=== PATIENT | male | born 1950 | race Two or more races ===

== ENCOUNTER 2022-01-26 13:17 | Inpatient (IN) | payer OTHER ==
[~2022-01-26] VITALS: Ht 175.3 cm; Wt 88.1 kg
[2022-01-26] MEDS ORDERED: SODIUM CHLORIDE 0.9% 1,000 ML IVB ONE (13:30)
[2022-01-26 13:43] LABS: Basophils # (auto) 0.1 10 ^3/uL (0-0.2); Basophils % (auto) 0.5 % (0.0-2.0); Eosinophils # (auto) 0 10 ^3/uL (0-0.8); Hematocrit 34.6 % (41.0-53.0); Hemoglobin 11.1 g/dL (13.5-17.5); Lymphocytes # (auto) 0.9 10 ^3/uL (0.4-5.4); Lymphocytes % (auto) 4.2 % (10.0-50.0); Mean Corpuscular Hemoglobin 27.7 pg (28.0-32.0); Mean Corpuscular Hgb Conc. 32.1 g/dL (32.0-36.0); Mean Corpuscular Volume 86.3 fL (80.0-100.0); Monocytes # (auto) 1.2 10 ^3/uL (0-1.3); Neutrophils # (auto) 18.2 10 ^3/uL (1.6-8.6); Neutrophils % (auto) 89.3 % (37.0-80.0); Nucleated Red Blood Cells % 0.1 %; Red Blood Cells 4.01 10^6/uL (4.5-5.90); Red Cell Distribution Width 13.9 % (11.8-14.3); White Blood Cell 20.4 10^3/uL (4.4-10.8)
[2022-01-26 14:07] LABS: Anion Gap 12 (5-15); Blood Alcohol < 3.0 mg/dL (0-5); Blood Urea Nitrogen 49 mg/dL (7-18); Calcium 7.2 mg/dL (8.5-10.1); Carbon Dioxide 24 mmol/L (21-32); Chloride 90 mmol/L (98-107); Glucose 325 mg/dL (74-106); Magnesium 2.4 mg/dL (1.6-2.6); Potassium 3.5 mmol/L (3.5-5.1); Sodium 126 mmol/L (136-145)
[2022-01-26 14:10] LABS: Alanine Aminotransferase 35 U/L (16-61); Alkaline Phosphatase 118 U/L (45-117); Aspartate Aminotransferase 35 U/L (15-37); BUN/Creatinine Ratio 37.4; GFR African American 69 mL/min; GFR Non-African American 57 mL/min; Lactic Acid w/Reflex 3.3 mmol/L (0.4-2.0)
[2022-01-26] MEDS ORDERED: levoFLOXacin 500MG 100 ML IV ONE (15:15)
[2022-01-26] MEDS ORDERED: SODIUM CHLORIDE 0.9% 1,000 ML IV ONE (15:15)
[2022-01-26] MEDS ORDERED: cefTRIAXone 1GM/50ML D5W 50 ML IV ONE (15:15)
[2022-01-26] MEDS ORDERED: NITROGLYCERIN 0.4 MG SL TAB SL PRN (16:45)
[2022-01-26] MEDS ORDERED: MORPHINE SULFATE INJ 2 MG/ml SYRG IV PRN ×2 (16:45)
[2022-01-26] MEDS ORDERED: DEXTROSE (50%) 50ML SYRG IV PRN (16:45)
[2022-01-26] MEDS ORDERED: HEPARIN SODIUM (PORCINE) 5000 UNITS/ML 1ML VIAL IV ONE (16:45)
[2022-01-26] MEDS ORDERED: ALBUTEROL SULF 2.5 MG/0.5ML(0.5%) NEB SOLN NEB PRN (17:00)
[2022-01-26] MEDS ORDERED: PANTOPRAZOLE 40 MG/10 ML VIAL INJ IV ONE (17:00)
[2022-01-26] MEDS ORDERED: IPRATROPIUM BROM 0.5 MG/2.5ML INH SOL NEB PRN (17:00)
[2022-01-26 17:10] LABS: Cholesterol 80 mg/dL (< 200)
[2022-01-26 17:13] LABS: HDL Cholesterol 10 mg/dL (40-59); LDL Cholesterol 35 mg/dL (< 100); Triglycerides 248 mg/dL (< 150)
[2022-01-26] MEDS: ACCU-CHEK COMFORT CURVE STRIP VI SCH ×2 (17:36→22:19)
[2022-01-26] MEDS: SODIUM CHLORIDE 0.9% 1,000 ML IV SCH (17:57)
[2022-01-26] MEDS: InsuLIN REG 1unit/0.01ml Soln (100units/ml) SC SCH ×2 (17:58→22:29)
[2022-01-26] MEDS: ALBUTEROL SULF 2.5 MG/0.5ML(0.5%) NEB SOLN NEB SCH ×2 (18:37→18:51)
[2022-01-26] MEDS: IPRATROPIUM BROM 0.5 MG/2.5ML INH SOL NEB SCH ×2 (18:38→18:51)
[2022-01-26 20:58] LABS: Urine Bacteria NONE SEEN /hpf (None Seen); Urine Blood Negative /uL (Negative); Urine Hyaline Cast FEW /lpf (0 - 2); Urine Mucus FEW (None Seen); Urine Specific Gravity 1.022 (1.001-1.035); Urine WBC 4 /hpf (0 - 3)
[2022-01-26 21:29] LABS: Alcohol, Urine < 3.0 mg/dL (0-10); Barbiturate Scree,Urine NEGATIVE (NEGATIVE); Benzodiazephine Screen, Urine NEGATIVE (NEGATIVE); Cannabinoid Screen, Urine NEGATIVE (NEGATIVE); Cocaine Screen, Urine NEGATIVE (NEGATIVE); Opiate Scree,Urine NEGATIVE (NEGATIVE); Phencyclidine Screen, Urine NEGATIVE (NEGATIVE)
[2022-01-26 21:45] LABS: Amphetamine Screen, Urine NEGATIVE (NEGATIVE)
[2022-01-26] MEDS: HEPARIN SODIUM (PORCINE) 5000 UNITS/ML 1ML VIAL SC SCH (22:19)
[2022-01-26 22:39] VITALS: BP 122/65
[2022-01-26 22:43] VITALS: BP 122/65
[2022-01-26 22:49] VITALS: BP 122/65
[2022-01-26] MEDS: ACETAMINOPHEN 325 MG TAB PO PRN (23:38)
[2022-01-27] MEDS: SODIUM CHLORIDE 0.9% 1,000 ML IV SCH ×3 (03:46→23:17)
[2022-01-27 04:51] VITALS: BP 121/70
[2022-01-27 04:56] LABS: Basophils # (auto) 0 10 ^3/uL (0-0.2); Basophils % (auto) 0.1 % (0.0-2.0); Eosinophils # (auto) 0 10 ^3/uL (0-0.8); Eosinophils % (auto) 0.1 % (0.0-7.0); Hematocrit 28.8 % (41.0-53.0); Hemoglobin 9.5 g/dL (13.5-17.5); Lymphocytes # (auto) 1.1 10 ^3/uL (0.4-5.4); Lymphocytes % (auto) 6.9 % (10.0-50.0); Mean Corpuscular Hemoglobin 28.3 pg (28.0-32.0); Mean Corpuscular Hgb Conc. 32.9 g/dL (32.0-36.0); Mean Corpuscular Volume 85.8 fL (80.0-100.0); Monocytes # (auto) 1.4 10 ^3/uL (0-1.3); Monocytes % (auto) 8.8 % (0.0-12.0); Neutrophils # (auto) 13.5 10 ^3/uL (1.6-8.6); Neutrophils % (auto) 84.1 % (37.0-80.0); Red Blood Cells 3.36 10^6/uL (4.5-5.90)
[2022-01-27 05:03] LABS: Albumin 1.6 g/dL (3.4-5.0); BUN/Creatinine Ratio 46.6; Calcium 6.7 mg/dL (8.5-10.1); Potassium 3.1 mmol/L (3.5-5.1)
[2022-01-27 05:05] LABS: Bilirubin, Total 0.6 mg/dL (0.2-1.0); Total Protein 5.3 g/dL (6.4-8.2)
[2022-01-27] MEDS: InsuLIN REG 1unit/0.01ml Soln (100units/ml) SC SCH ×4 (05:53→22:00)
[2022-01-27] MEDS: ACCU-CHEK COMFORT CURVE STRIP VI SCH ×4 (05:53→22:33)
[2022-01-27 06:03] VITALS: BP 121/70
[2022-01-27] MEDS ORDERED: POTASSIUM CHL 20 Meq TABLET PO ONE (06:45)
[2022-01-27 09:00] VITALS: BP 125/62
[2022-01-27] MEDS ORDERED: cefTRIAXone 1GM/50ML D5W 50 ML IV SCH (09:00)
[2022-01-27] MEDS ORDERED: AZITHROMYCIN 500MG/ 250ML 250 ML IV SCH (10:00)
[2022-01-27] MEDS ORDERED: PANTOPRAZOLE 40 MG/10 ML VIAL INJ IV SCH (10:00)
[2022-01-27] MEDS ORDERED: PIPERACILLIN-TAZOB 3.375GM 100 ML IV ONE (10:15)
[2022-01-27] MEDS ORDERED: PANTOPRAZOLE 40 MG/10 ML VIAL INJ IV ONE (10:15)
[2022-01-27] MEDS ORDERED: POTASSIUM CHLORIDE 40 MEQ, LIDOCAINE 1% (LOCAL ANESTH.) 4 ML in SODIUM CHL 0.9% 250 ML IV ONE (10:15)
[2022-01-27] MEDS ORDERED: MORPHINE SULFATE INJ 2 MG/ml SYRG IV PRN (10:15)
[2022-01-27] MEDS: HEPARIN SODIUM (PORCINE) 5000 UNITS/ML 1ML VIAL SC SCH ×2 (11:33→21:37)
[2022-01-27 13:00] VITALS: BP 148/76
[2022-01-27] MEDS ORDERED: OMNIPAQUE ORAL SOLN 500ml 12mg/ml PO ONE (14:02)
[2022-01-27] MEDS: PIPERACILLIN-TAZOB 3.375GM 100 ML IV SCH ×2 (15:36→21:38)
[2022-01-27 17:00] VITALS: BP 152/77
[2022-01-27] MEDS: ALBUTEROL SULF 2.5 MG/0.5ML(0.5%) NEB SOLN NEB SCH (18:26)
[2022-01-27] MEDS: IPRATROPIUM BROM 0.5 MG/2.5ML INH SOL NEB SCH (18:26)
[2022-01-27 22:00] VITALS: BP 136/73
[2022-01-28 05:00] VITALS: BP 145/73
[2022-01-28 05:01] LABS: Basophils # (auto) 0 10 ^3/uL (0-0.2); Eosinophils # (auto) 0 10 ^3/uL (0-0.8); Hematocrit 28.2 % (41.0-53.0); Hemoglobin 9.6 g/dL (13.5-17.5); Lymphocytes # (auto) 0.9 10 ^3/uL (0.4-5.4); Lymphocytes % (auto) 6.2 % (10.0-50.0); Mean Corpuscular Hemoglobin 29.2 pg (28.0-32.0); Mean Corpuscular Hgb Conc. 33.9 g/dL (32.0-36.0); Mean Corpuscular Volume 86.1 fL (80.0-100.0); Monocytes # (auto) 0.9 10 ^3/uL (0-1.3); Monocytes % (auto) 6.3 % (0.0-12.0); Neutrophils % (auto) 87.5 % (37.0-80.0); Red Blood Cells 3.27 10^6/uL (4.5-5.90); Red Cell Distribution Width 14.3 % (11.8-14.3); White Blood Cell 13.7 10^3/uL (4.4-10.8)
[2022-01-28 05:14] LABS: Albumin 1.6 g/dL (3.4-5.0); Calcium 6.7 mg/dL (8.5-10.1); Potassium 3.7 mmol/L (3.5-5.1)
[2022-01-28 05:18] LABS: BUN/Creatinine Ratio 35.9; Bilirubin, Total 0.8 mg/dL (0.2-1.0); Total Protein 5.2 g/dL (6.4-8.2)
[2022-01-28] MEDS: PIPERACILLIN-TAZOB 3.375GM 100 ML IV SCH ×3 (05:54→21:43)
[2022-01-28] MEDS: ACCU-CHEK COMFORT CURVE STRIP VI SCH ×4 (06:18→21:55)
[2022-01-28] MEDS: InsuLIN REG 1unit/0.01ml Soln (100units/ml) SC SCH ×4 (06:18→21:46)
[2022-01-28] MEDS: IPRATROPIUM BROM 0.5 MG/2.5ML INH SOL NEB SCH ×3 (06:26→18:13)
[2022-01-28] MEDS: ALBUTEROL SULF 2.5 MG/0.5ML(0.5%) NEB SOLN NEB SCH ×3 (06:26→18:13)
[2022-01-28 09:00] VITALS: BP 135/68
[2022-01-28] MEDS: PANTOPRAZOLE 40 MG/10 ML VIAL INJ IV SCH (10:23)
[2022-01-28] MEDS: HEPARIN SODIUM (PORCINE) 5000 UNITS/ML 1ML VIAL SC SCH ×2 (10:27→21:54)
[2022-01-28] MEDS: SODIUM CHLORIDE 0.9% 1,000 ML IV SCH ×2 (10:28→23:20)
[2022-01-28 13:00] VITALS: BP 137/71
[2022-01-28 17:00] VITALS: BP 145/79
[2022-01-28 22:00] VITALS: BP 132/29
[2022-01-29 05:00] VITALS: BP 159/74
[2022-01-29] MEDS: ALBUTEROL SULF 2.5 MG/0.5ML(0.5%) NEB SOLN NEB SCH ×3 (06:03→18:15)
[2022-01-29] MEDS: PIPERACILLIN-TAZOB 3.375GM 100 ML IV SCH (06:03)
[2022-01-29] MEDS: IPRATROPIUM BROM 0.5 MG/2.5ML INH SOL NEB SCH ×3 (06:03→18:15)
[2022-01-29] MEDS: InsuLIN REG 1unit/0.01ml Soln (100units/ml) SC SCH ×4 (06:27→21:47)
[2022-01-29] MEDS: ACCU-CHEK COMFORT CURVE STRIP VI SCH ×4 (06:27→21:44)
[2022-01-29 07:22] LABS: Basophils # (auto) 0 10 ^3/uL (0-0.2); Basophils % (auto) 0.1 % (0.0-2.0); Eosinophils # (auto) 0 10 ^3/uL (0-0.8); Eosinophils % (auto) 0.3 % (0.0-7.0); Hematocrit 29.1 % (41.0-53.0); Hemoglobin 9.5 g/dL (13.5-17.5); Lymphocytes % (auto) 9.3 % (10.0-50.0); Mean Corpuscular Hemoglobin 28.3 pg (28.0-32.0); Mean Corpuscular Hgb Conc. 32.6 g/dL (32.0-36.0); Mean Corpuscular Volume 86.8 fL (80.0-100.0); Monocytes # (auto) 0.7 10 ^3/uL (0-1.3); Monocytes % (auto) 5.9 % (0.0-12.0); Neutrophils # (auto) 9.4 10 ^3/uL (1.6-8.6); Neutrophils % (auto) 84.4 % (37.0-80.0); Nucleated Red Blood Cells % 0.1 %; Red Blood Cells 3.35 10^6/uL (4.5-5.90); Red Cell Distribution Width 14.3 % (11.8-14.3); White Blood Cell 11.1 10^3/uL (4.4-10.8)
[2022-01-29 07:37] LABS: Calcium 7.2 mg/dL (8.5-10.1); Potassium 3.8 mmol/L (3.5-5.1)
[2022-01-29 09:05] VITALS: BP 151/75
[2022-01-29] MEDS: HEPARIN SODIUM (PORCINE) 5000 UNITS/ML 1ML VIAL SC SCH ×2 (09:52→21:44)
[2022-01-29] MEDS: PANTOPRAZOLE 40 MG/10 ML VIAL INJ IV SCH (09:53)
[2022-01-29] MEDS ORDERED: CARVEDILOL 3.125 MG TAB PO ONE (10:15)
[2022-01-29] MEDS ORDERED: LISINOPRIL 10 MG TAB PO ONE (10:15)
[2022-01-29 13:00] VITALS: BP 152/74
[2022-01-29 16:53] VITALS: BP 151/73
[2022-01-29] MEDS ORDERED: LISINOPRIL 20 MG TAB PO ONE (17:00)
[2022-01-29] MEDS ORDERED: EPINEPHrine HCL 1 MG/10 ML SYRG ONE (17:50)
[2022-01-29] MEDS: CARVEDILOL 3.125 MG TAB PO SCH (21:42)
[2022-01-29 22:00] VITALS: BP 136/67
[2022-01-30 05:00] VITALS: BP 164/83
[2022-01-30] MEDS: ACCU-CHEK COMFORT CURVE STRIP VI SCH ×4 (06:02→22:00)
[2022-01-30] MEDS: InsuLIN REG 1unit/0.01ml Soln (100units/ml) SC SCH ×4 (06:02→21:57)
[2022-01-30] MEDS: IPRATROPIUM BROM 0.5 MG/2.5ML INH SOL NEB SCH ×2 (07:19→17:42)
[2022-01-30] MEDS: ALBUTEROL SULF 2.5 MG/0.5ML(0.5%) NEB SOLN NEB SCH ×2 (07:19→17:42)
[2022-01-30 09:00] VITALS: BP 155/76
[2022-01-30] MEDS ORDERED: cefTRIAXone 1GM/50ML D5W 50 ML IV SCH (09:00)
[2022-01-30] MEDS ORDERED: LISINOPRIL 10 MG TAB PO SCH (10:00)
[2022-01-30] MEDS ORDERED: DOCUSATE SOD 100 MG CAP PO ONE (10:15)
[2022-01-30 10:33] VITALS: BP 155/76
[2022-01-30] MEDS: PANTOPRAZOLE 40 MG TAB PO SCH (10:35)
[2022-01-30] MEDS: LISINOPRIL 10 MG TAB PO SCH (10:37)
[2022-01-30] MEDS: CARVEDILOL 3.125 MG TAB PO SCH ×2 (10:37→21:56)
[2022-01-30 13:00] VITALS: BP 144/85
[2022-01-30 17:06] VITALS: BP 150/84
[2022-01-30 21:38] VITALS: BP 153/81
[2022-01-31 04:38] VITALS: BP 156/77
[2022-01-31] MEDS: IPRATROPIUM BROM 0.5 MG/2.5ML INH SOL NEB SCH ×2 (06:15→12:00)
[2022-01-31] MEDS: ALBUTEROL SULF 2.5 MG/0.5ML(0.5%) NEB SOLN NEB SCH ×2 (06:15→12:00)
[2022-01-31] MEDS: ACCU-CHEK COMFORT CURVE STRIP VI SCH ×2 (06:35→11:30)
[2022-01-31] MEDS: InsuLIN REG 1unit/0.01ml Soln (100units/ml) SC SCH ×2 (06:36→12:53)
[2022-01-31 09:00] VITALS: BP 152/82
[2022-01-31] MEDS ORDERED: levoFLOXacin 250 MG TAB PO SCH (10:00)
[2022-01-31] MEDS ORDERED: LISI-716 PO (10:29)
[2022-01-31] MEDS ORDERED: LEVO250T69 PO (10:29)
[2022-01-31] MEDS ORDERED: CAR3125T PO (10:29)
[2022-01-31] MEDS ORDERED: FURO1TAB33 PO (10:29)
[2022-01-31] MEDS ORDERED: FUROSEMIDE 20 MG TAB PO ONE (10:30)
[2022-01-31] MEDS: LISINOPRIL 10 MG TAB PO SCH (10:38)
[2022-01-31] MEDS: CARVEDILOL 3.125 MG TAB PO SCH (10:39)
[2022-01-31] MEDS: PANTOPRAZOLE 40 MG TAB PO SCH (10:39)
[2022-01-31 13:00] VITALS: BP 150/82
[2022-01-31 13:08] VITALS: BP 142/78
[2022-01-31] MEDS: ACETAMINOPHEN 325 MG TAB PO PRN (13:56)
== END 2022-01-31 15:45 | disposition home or self-care (01) | DRG 871 ==
LOC: EDBD 13:17 → ER 13:24 → TELE 16:51 → TELE-CENTR 21:44 → CENTRAL 01-29 05:35
PROVIDERS: ADMIT Registered Nurse; ATTEND Internal Medicine
DX: A40.8 Other streptococcal sepsis (principal); I50.21 Acute systolic (congestive) heart failure; N17.0 Acute kidney failure with tubular necrosis; J96.01 Acute respiratory failure with hypoxia; J15.4 Pneumonia due to other streptococci; N39.0 Urinary tract infection, site not specified; E87.1 Hypo-osmolality and hyponatremia; E78.5 Hyperlipidemia, unspecified; D63.8 Anemia in other chronic diseases classified elsewhere; R77.8 Other specified abnormalities of plasma proteins; K21.9 Gastro-esophageal reflux disease without esophagitis; E11.42 Type 2 diabetes mellitus with diabetic polyneuropathy; E86.0 Dehydration; K22.0 Achalasia of cardia; I11.0 Hypertensive heart disease with heart failure; Z20.822 Contact with and (suspected) exposure to COVID-19; K57.30 Diverticulosis of large intestine without perforation or abscess without bleeding; Z79.899 Other long term (current) drug therapy
CPT/HCPCS: 36415; 36600; 70450; 71045; 74176; 80048; 80053; 80061; 80307; 80320; 81001; 82805; 82962; 83036; 83605; 83690; 83735; 83880; 84484; 85025; 85379; 87040; 87077; 87086; 87186; 93306; 94640; 96361; 96365; 96368; 97110; 97116; 97163; 97530; 99291; C9113; G0378; J0696; J1815; J1956; J2001; J2543

== ENCOUNTER → 2022-04-25 | Outpatient (CLI) | payer OTHER ==
[~2022-04-25] VITALS: Ht 185.4 cm; Wt 94.3 kg
[~2022-04-25] MED LIST: ADENOSINE 79 MG in GIVE UN-DILUTED 0 ML IV ONE; CAR3125T PO; FURO1TAB33 PO; LEVO250T69 PO; LISI-716 PO
== END | disposition home or self-care (01) ==
LOC: XYW 07:53
PROVIDERS: ATTEND Internal Medicine
DX: I25.10 Atherosclerotic heart disease of native coronary artery without angina pectoris (principal); I49.3 Ventricular premature depolarization; I42.9 Cardiomyopathy, unspecified; I51.7 Cardiomegaly; R53.1 Weakness; E11.42 Type 2 diabetes mellitus with diabetic polyneuropathy; M19.90 Unspecified osteoarthritis, unspecified site; M25.512 Pain in left shoulder
CPT/HCPCS: 78452; 93017; A9500; J0153

== ENCOUNTER → 2022-06-09 | Outpatient (CLI) | payer OTHER ==
[~2022-06-09] MED LIST changes: -ADENOSINE 79 MG in GIVE UN-DILUTED 0 ML IV ONE
[2022-06-09 08:57] LABS: Basophils # (auto) 0 10 ^3/uL (0-0.2); Basophils % (auto) 0.6 % (0.0-2.0); Hemoglobin 12.6 g/dL (13.5-17.5); Lymphocytes # (auto) 2.3 10 ^3/uL (0.4-5.4); Monocytes # (auto) 0.5 10 ^3/uL (0-1.3); Neutrophils # (auto) 3.6 10 ^3/uL (1.6-8.6); Nucleated Red Blood Cells % 0.1 %; White Blood Cell 6.5 10^3/uL (4.4-10.8)
[2022-06-09 08:59] LABS: Eosinophils # (auto) 0 10 ^3/uL (0-0.8); Eosinophils % (auto) 0.6 % (0.0-7.0); Hematocrit 40.6 % (41.0-53.0); Mean Corpuscular Hemoglobin 24.9 pg (28.0-32.0); Mean Corpuscular Volume 80.2 fL (80.0-100.0); Monocytes % (auto) 7.3 % (0.0-12.0); Neutrophils % (auto) 56.5 % (37.0-80.0); Red Blood Cells 5.07 10^6/uL (4.5-5.90); Red Cell Distribution Width 16.3 % (11.8-14.3)
[2022-06-09 09:16] LABS: Urine Bacteria NONE SEEN /hpf (None Seen); Urine Blood Negative /uL (Negative); Urine Specific Gravity 1.018 (1.001-1.035); Urine WBC 1 /hpf (0 - 3)
[2022-06-09 09:32] LABS: Albumin 3.7 g/dL (3.4-5.0); Potassium 4.3 mmol/L (3.5-5.1)
[2022-06-09 09:47] LABS: BUN/Creatinine Ratio 18.6; Bilirubin, Total 0.3 mg/dL (0.2-1.0); Calcium 9.1 mg/dL (8.5-10.1); Total Protein 8.3 g/dL (6.4-8.2)
== END | disposition home or self-care (01) ==
LOC: LAB 08:34
PROVIDERS: ATTEND Student in an Organized Health Care Education/Training Program
DX: E11.9 Type 2 diabetes mellitus without complications (principal)
CPT/HCPCS: 36415; 80053; 80061; 81001; 83036; 85025

== ENCOUNTER 2022-07-09 10:35 | Day surgery (SDC) | payer OTHER ==
[2022-07-07 14:34] LABS: Eosinophils # (auto) 0 10 ^3/uL (0-0.8); Eosinophils % (auto) 0.4 % (0.0-7.0); Lymphocytes # (auto) 2.4 10 ^3/uL (0.4-5.4); Monocytes # (auto) 0.5 10 ^3/uL (0-1.3); Nucleated Red Blood Cells % 0.1 %
[2022-07-07 14:36] LABS: Basophils # (auto) 0.1 10 ^3/uL (0-0.2); Basophils % (auto) 0.7 % (0.0-2.0); Hematocrit 39.3 % (41.0-53.0); Lymphocytes % (auto) 29.9 % (10.0-50.0); Mean Corpuscular Hemoglobin 26.3 pg (28.0-32.0); Mean Corpuscular Hgb Conc. 33.1 g/dL (32.0-36.0); Mean Corpuscular Volume 79.4 fL (80.0-100.0); Monocytes % (auto) 6.5 % (0.0-12.0); Neutrophils # (auto) 5.1 10 ^3/uL (1.6-8.6); Neutrophils % (auto) 62.5 % (37.0-80.0); Red Blood Cells 4.95 10^6/uL (4.5-5.90); Red Cell Distribution Width 16.3 % (11.8-14.3); White Blood Cell 8.1 10^3/uL (4.4-10.8)
[2022-07-07 14:49] LABS: INR 0.92 (0.9-1.15); Partial Thromboplastin Time 28.5 sec (24.6-33.4)
[2022-07-07 15:51] LABS: Albumin 3.8 g/dL (3.4-5.0); Calcium 9.1 mg/dL (8.5-10.1); Potassium 4.6 mmol/L (3.5-5.1)
[2022-07-07 15:54] LABS: Bilirubin, Total 0.3 mg/dL (0.2-1.0); Total Protein 8.5 g/dL (6.4-8.2)
[~2022-07-09] VITALS: Ht 185.4 cm; Wt 94.5 kg
[2022-07-09] MEDS ORDERED: IODIXANOL 320MG/ML 100ML BTL IV ONE (15:35)
[2022-07-09] MEDS ORDERED: LIDOCAINE 2%HCL (LOCAL ANESTH.) INJ 20ML MDV ONE (15:35)
[2022-07-09] MEDS ORDERED: HEPARIN SODIUM (PORCINE) 5000 UNITS/ML 1ML VIAL ONE (15:36)
[2022-07-09] MEDS ORDERED: ANGIOMAX 250 MG VIAL IV ONE (15:36)
[2022-07-09] MEDS ORDERED: VERAPAMIL 2.5MG/ML INJ 2ML VIAL IV ONE (15:36)
[2022-07-09] MEDS ORDERED: fentaNYL CITRATE 100 MCG/2 ML VL ONE (15:37)
[2022-07-09] MEDS ORDERED: MIDAZOLAM HCL 2MG/2ML 2ml VIAL (1mg/ml) ONE (15:37)
[2022-07-09] MEDS ORDERED: SODIUM CHL 0.9% 0 ML ONE (15:37)
[2022-07-09 16:13] VITALS: BP 149/85
[2022-07-09 16:25] VITALS: BP 148/82
[2022-07-09 16:40] VITALS: BP 149/87
[2022-07-09] MEDS ORDERED: SODIUM CHL 0.9% 500 ML IV ONE (16:45)
[2022-07-09] MEDS ORDERED: GABA300C10 PO (16:52)
[2022-07-09] MEDS ORDERED: TAMS0.4C36 PO (16:52)
[2022-07-09] MEDS ORDERED: METF-370 PO (16:52)
[2022-07-09] MEDS ORDERED: CELE100C82 PO (16:52)
[2022-07-09] MEDS ORDERED: GLIP10TA9 PO (16:52)
[2022-07-09] MEDS ORDERED: SACU1TAB PO (16:52)
[2022-07-09] MEDS ORDERED: ATOR40TA52 PO (16:52)
[2022-07-09 16:55] VITALS: BP 161/90
[2022-07-09 17:10] VITALS: BP 170/89
[2022-07-09 17:40] VITALS: BP 165/88
== END 2022-07-09 18:00 | disposition home or self-care (01) ==
LOC: CATH 10:35
PROVIDERS: ATTEND Internal Medicine
DX: R94.39 Abnormal result of other cardiovascular function study (principal); I10 Essential (primary) hypertension; R07.89 Other chest pain; Z79.899 Other long term (current) drug therapy; Z20.822 Contact with and (suspected) exposure to COVID-19
CPT/HCPCS: 36415; 80053; 85025; 85610; 85730; 93458; C1769; C1887; C1894; J1644; J2250; J3010; Q9967; U0003; 99152

== ENCOUNTER → 2022-09-01 | Outpatient (CLI) | payer OTHER ==
[~2022-09-01] MED LIST changes: +ATOR40TA52 PO; -CAR3125T PO; +CELE100C82 PO; -FURO1TAB33 PO; +GABA300C10 PO; +GLIP10TA9 PO; -LEVO250T69 PO; -LISI-716 PO; +METF-370 PO; +SACU1TAB PO; +TAMS0.4C36 PO
[2022-09-01 07:47] LABS: Basophils # (auto) 0 10 ^3/uL (0-0.2); Basophils % (auto) 0.4 % (0.0-2.0); Eosinophils # (auto) 0 10 ^3/uL (0-0.8); Eosinophils % (auto) 0.4 % (0.0-7.0); Hematocrit 37.3 % (41.0-53.0); Hemoglobin 12.9 g/dL (13.5-17.5); Lymphocytes # (auto) 2.4 10 ^3/uL (0.4-5.4); Lymphocytes % (auto) 31.8 % (10.0-50.0); Mean Corpuscular Hemoglobin 27.6 pg (28.0-32.0); Mean Corpuscular Hgb Conc. 34.4 g/dL (32.0-36.0); Monocytes # (auto) 0.5 10 ^3/uL (0-1.3); Monocytes % (auto) 6.3 % (0.0-12.0); Neutrophils # (auto) 4.5 10 ^3/uL (1.6-8.6); Neutrophils % (auto) 61.1 % (37.0-80.0); Nucleated Red Blood Cells % 0.1 %; Red Blood Cells 4.67 10^6/uL (4.5-5.90); Red Cell Distribution Width 16.2 % (11.8-14.3); White Blood Cell 7.4 10^3/uL (4.4-10.8)
[2022-09-01 08:21] LABS: Urine Bacteria NONE SEEN /hpf (None Seen); Urine Blood Negative /uL (Negative); Urine WBC 1 /hpf (0 - 3)
[2022-09-01 08:24] LABS: Potassium 4.1 mmol/L (3.5-5.1)
[2022-09-01 08:32] LABS: BUN/Creatinine Ratio 14.9 (10.0-20.0); Calcium 8.9 mg/dL (8.5-10.1)
== END | disposition home or self-care (01) ==
LOC: LAB 06:56
PROVIDERS: ATTEND Student in an Organized Health Care Education/Training Program
DX: Z12.11 Encounter for screening for malignant neoplasm of colon (principal); E11.9 Type 2 diabetes mellitus without complications
CPT/HCPCS: 36415; 80048; 81001; 83036; 85025

== ENCOUNTER → 2023-01-16 | Outpatient (CLI) | payer OTHER ==
[~2023-01-16] MED LIST changes: +GABA-1250 PO; -GABA300C10 PO
[2023-01-16 08:42] LABS: Urine Bacteria NONE SEEN /hpf (None Seen); Urine Blood Negative /uL (Negative); Urine Clarity Clear (Clear); Urine Color Yellow (Yellow); Urine Protein, UAD 1+ (Negative); Urine Specific Gravity 1.019 (1.001-1.035); Urine Urobilinogen Normal (Negative); Urine WBC <1 /hpf (0 - 3); Urine pH 5.5 (5.0-8.0)
[2023-01-16 09:12] LABS: Chloride 101 mmol/L (98-107); Potassium 3.9 mmol/L (3.5-5.1); Sodium 133 mmol/L (136-145)
[2023-01-16 09:13] LABS: Anion Gap 6.9 (5-15); Carbon Dioxide 25.1 mmol/L (20-30)
[2023-01-16 09:14] LABS: Calcium 9.1 mg/dL (8.7-10.4)
[2023-01-16 09:18] LABS: Blood Urea Nitrogen 19 mg/dL (9-23); Glucose 180 mg/dL (74-106)
== END | disposition home or self-care (01) ==
LOC: LAB 07:35
PROVIDERS: ATTEND Student in an Organized Health Care Education/Training Program
DX: I10 Essential (primary) hypertension (principal); E11.9 Type 2 diabetes mellitus without complications
CPT/HCPCS: 36415; 80048; 81001; 83036

== ENCOUNTER 2023-08-18 13:46 | Emergency (ER) | payer OTHER ==
[~2023-08-18] VITALS: Ht 188 cm; Wt 95.4 kg
[~2023-08-18 13:46] MED LIST changes: +[UNRECOGNIZED DRUG - OTHER] IV
[2023-08-18 14:15] VITALS: BP 111/63; PULSE 85; RESP 18; O2SAT 98
[2023-08-18 15:13] LABS: Basophils # (auto) 0.1 10 ^3/uL (0-0.2); Basophils % (auto) 1.3 % (0.0-2.0); Eosinophils # (auto) 0 10 ^3/uL (0-0.8); Eosinophils % (auto) 0.6 % (0.0-7.0); Hemoglobin 12.6 g/dL (13.5-17.5); Lymphocytes # (auto) 1.5 10 ^3/uL (0.4-5.4); Lymphocytes % (auto) 20.2 % (10.0-50.0); Mean Corpuscular Hemoglobin 28.7 pg (28.0-32.0); Mean Corpuscular Hgb Conc. 33.1 g/dL (32.0-36.0); Mean Corpuscular Volume 86.8 fL (80.0-100.0); Monocytes # (auto) 0.6 10 ^3/uL (0-1.3); Monocytes % (auto) 8.3 % (0.0-12.0); Neutrophils # (auto) 5.2 10 ^3/uL (1.6-8.6); Neutrophils % (auto) 69.6 % (37.0-80.0); Red Blood Cells 4.38 10^6/uL (4.5-5.90); Red Cell Distribution Width 13.7 % (11.8-14.3); White Blood Cell 7.4 10^3/uL (4.4-10.8)
[2023-08-18 15:20] LABS: Chloride 106 mmol/L (98-107); Potassium 3.6 mmol/L (3.5-5.1); Sodium 137 mmol/L (136-145)
[2023-08-18 15:21] LABS: Anion Gap 5 (5-15); Carbon Dioxide 26 mmol/L (20-30)
[2023-08-18 15:22] LABS: Calcium 8.9 mg/dL (8.5-10.1)
[2023-08-18 15:27] LABS: BUN/Creatinine Ratio 13.1 (10.0-20.0); Blood Urea Nitrogen 13 mg/dL (9-23); Glucose 189 mg/dL (74-106)
[2023-08-18] MEDS ORDERED: SODIUM CHLORIDE 0.9% 1,000 ML IV ONE (18:45)
[2023-08-18] MEDS ORDERED: PIPERACILLIN-TAZOB 3.375GM 100 ML IV ONE (18:45)
[2023-08-19] MEDS ORDERED: DOXY100C4 PO (16:41)
[2023-08-19] MEDS ORDERED: CLIN150C PO (16:41)
== END 2023-08-18 18:51 | disposition left against medical advice (07) ==
LOC: ER 13:46
DX: L03.116 Cellulitis of left lower limb (principal); I10 Essential (primary) hypertension; E11.9 Type 2 diabetes mellitus without complications; E78.5 Hyperlipidemia, unspecified; K21.9 Gastro-esophageal reflux disease without esophagitis; Z98.890 Other specified postprocedural states; Z79.899 Other long term (current) drug therapy
CPT/HCPCS: 36415; 80048; 85025

== ENCOUNTER 2023-08-19 15:49 | Emergency (ER) | payer OTHER ==
[~2023-08-19] VITALS: Ht 188 cm; Wt 92.7 kg
[2023-08-19] MEDS ORDERED: CLIN150C PO (16:41)
[2023-08-19] MEDS ORDERED: DOXY100C4 PO (16:41)
[2023-08-19 17:50] VITALS: BP 108/72; PULSE 85; RESP 17; TEMP 97.9; O2SAT 98
== END 2023-08-19 17:52 | disposition home or self-care (01) ==
LOC: ER 15:49
DX: S98.112D Complete traumatic amputation of left great toe, subsequent encounter (principal); I10 Essential (primary) hypertension; E11.9 Type 2 diabetes mellitus without complications; K21.9 Gastro-esophageal reflux disease without esophagitis; E78.5 Hyperlipidemia, unspecified; Z98.890 Other specified postprocedural states; Z79.899 Other long term (current) drug therapy; X58.XXXD Exposure to other specified factors, subsequent encounter

== ENCOUNTER 2024-06-17 10:06 | Inpatient (IN) | payer OTHER ==
[~2024-06-17] VITALS: Ht 188 cm; Wt 100.0 kg
[~2024-06-17 10:06] MED LIST changes: +CLIN150C PO; +DOXY100C4 PO; -TAMS0.4C36 PO; +TAMS0.4C39 PO
--- NOTE | 2024-06-17 10:31 | DVH ---
EXAM: XY CHEST PORTABLE Indication: cough Technique: Single frontal view of the chest was obtained Comparison: XY CHEST PORTABLE on DOS: 08/12/23, XY CHEST PORTABLE on DOS: 08/10/23, CXRP on DOS: 2, CHEST PORTABLE on DOS: 01/30/22, CXRP on DOS: 01/26/22 FINDINGS: Lines and Tubes: None Lungs: Mild interstitial opacities. Low lung volumes. Pleura: No effusion. No pneumothorax. Cardiomediastinal contours: Unremarkable Atherosclerotic vascular calcifications of the thoracic aort a are noted. Bones: No acute osseous abnormality. IMPRESSION: Mild interstitial opacities with low lung volumes may reflect mild pulmonary fibrosis. Other differe ntial considerations include atypical infection or pulmonary edema.
[2024-06-17 10:46] LABS: Basophils # (auto) 0 10 ^3/uL (0-0.2); Basophils % (auto) 0.3 % (0.0-2.0); Eosinophils # (auto) 0 10 ^3/uL (0-0.8); Eosinophils % (auto) 0.2 % (0.0-7.0); Neutrophils # (auto) 9.5 10 ^3/uL (1.6-8.6)
--- NOTE | 2024-06-17 10:47 | ED.PDOC ---
Musculoskeletal HPI Comments 74 year old male presents to the ED with a chief complaint of black LT 2nd toe onset 1 week. Patient states he has a PMHx of DM, HTN, HLD, GERD. He has his bilateral great big toes amputated. He noticed his LT 2nd toe was black, numb for the past 2 weeks. Denies fever, chest pain, shortness of breath, nausea, vomiting, diarrhea. No other symptoms or modifying factors present at this time. Chief Complaint: Lower Extremity Time Seen by MD: 10:37 Primary Care Provider: KODAK Reviewed Notes: Medications, Allergies Allergies: Coded Allergies: NO KNOWN ALLERGIES (Unverified , 01/26/22) Home Meds Active Scripts Clindamycin Hcl (CLEOCIN) 150 Mg Cap, 300 MG PO TID for 10 Days, #30 CAP Prov:NICHOLE NAYLOR DO 08/19/23 Doxycycline Hyclate (Doxycycline Hyclate) 100 Mg Cap, 100 MG PO BID for 14 Days, #28 CAP Prov:NICHOLE NAYLOR DO 08/19/23 Vancomycin HCl (Vancomycin HCl) 1,000 Mg Inj, 1000 MG IV BID for 42 Days, INJ Prov:AUSTIN SHIRLEY RESIDENT 08/13/23 Reported Medications Metformin Hydrochloride (Metformin Hcl) 500 Mg Tab, 1000 MG PO BIDBRS for 30 Days, MG 07/09/22 Tamsulosin Hcl (Tamsulosin Hcl) 0.4 Mg Cap, 0.4 MG PO DAILY for 30 Days, MG 07/09/22 Glipizide (Glipizide) 10 Mg Tab, 20 MG PO BIDAC for 30 Days, MG 07/09/22 Gabapentin (Gabapentin) 300 Mg Cap, 300 MG PO HSPRN for 30 Days, MG 07/09/22 Sacubitril-Valsartan (Entresto 24-26 mg) 1 Tab Tab, 1 TAB PO BID, TAB 07/09/22 Celecoxib (Celebrex) 100 Mg Cap, 200 MG PO DAILYP PRN for MILD PAIN (1-3 PAIN SCALE) for 30 Days, MG 07/09/22 Atorvastatin Calcium (ATORVASTATIN CALCIUM) 40 Mg Tab, 40 MG PO HS, TAB 07/09/22 Information Source: Patient Mode of Arrival: Ambulatory Location: Left Extremity Location: Toe 2 Timing: Weeks Prehospital treatment: None Severity: Moderate Able to Move Extremity: Yes Pain: Moderate Circumstances: Spontaneous Onset of Symptoms: Spontaneous Symptoms: Erythema Associated signs and symptoms: Foot pain Past Medical History PAST MEDICAL HISTORY: DM, GERD, High Lipids, HTN Family History Family History: No family hx of Cancer, No family hx of DM, No family hx of Heart emmanuel Social History Smoker: Non-Smoker Alcohol: Denies ETOH Use Drugs: Denies Drug Use Lives In: Home Constitutional: denies: chills, diaphoresis, fatigue, fever, malaise, sweats, weakness, others EENTM: denies: blurred vision, double vision, ear bleeding, ear discharge, ear drainage, ear pain, ear ringing, eye pain, eye redness, hearing loss, mouth pain, mouth swelling, nasal discharge, nose bleeding, nose congestion, nose pain, photophobia, tearing, throat pain, throat swelling, voice changes, others Respiratory: denies: cough, hemoptysis, orthopnea, SOB at rest, shortness of breath, SOB with excertion, stridor, wheezing, others Cardiovascular: denies: chest pain, dizzy spells, diaphoresis, Dyspnea on exertion, edema, irregular heart beat, left arm pain, lightheadedness, palpitations, PND, syncope, others Gastrointestinal: denies: abdomen distended, abdominal pain, blood streaked bowels, constipated, diarrhea, dysphagia, difficulty swallowing, hematemesis, melena, nausea, poor appetite, poor fluid intake, rectal bleeding, rectal pain, vomiting, others Genitourinary: denies: burning, dysuria, flank pain, frequency, hematuria, incontinence, penile discharge, penile sore, pain, testicle pain, testicle swelling, urgency, others Neurological: denies: dizziness, fainting, headache, left sided numbness, left sided weakness, numbness, paresthesia, pre-existing deficit, right sided numbness, right sided weakness, seizure, speech problems, tingling, tremors, weakness, others Musculoskeletal: reports: others (LT 2nd toe black); denies: back pain, gout, joint pain, joint swelling, muscle pain, muscle stiffness, neck pain Integumetry: denies: bruises, change in color, change in hair/nails, dryness, laceration, lesions, lumps, rash, wounds, others Allergic/Immunocompromised: denies: Difficulty Healing, Frequent Infections, Hives, Itching, others Hematologic/Lymphatic: denies: anemia, blood clots, easy bleeding, easy bruising, swollen glands, others Endocrine: denies: excessive hunger, excessive sweating, excessive thirst, excessive urination, flushing, intolerance to cold, intolerance to heat, unexplained weight gain, unexplained weight loss, others Psychiatric: denies: anxiety, bipolar disorder, depression, hopeless, panic disorder, schizophrenia, sleepless, suicidal, others All Other Systems: Reviewed and Negative Physical Exam General Appearance: No Apparent Distress, Normal HEENT: Normal ENT Inspection, Pharynx Normal, TMs Normal Neck: Full Range of Motion, Non-Tender, Normal, Normal Inspection Respiratory: Chest Non-Tender, Lungs Clear, No Accessory Muscle Use, No Respiratory Distress, Normal Breath Sounds Cardiovascular: No Edema, No JVD, No Murmur, No Gallop, Regular Rate/Rhythm Breast Exam: Deferred Gastrointestinal: No Organomegaly, Non Tender, Normal Bowel Sounds, Soft Genitalia: Deferred Pelvic: Deferred Rectal: Deferred Extremities: Normal range of motion, Non-tender, Other (Patient was well-healed amputation site to bilateral 1st toes. Left 2nd toe is noted to have a 1 x 1 cm unstageable pressure ulcer to the distal tip with purulent discharge noted with partial removal. Patient does not have erythema, edema or tracking. He is able to ambulate with the assistance of a cane. 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 Was a procedure done?: No Differential Diagnosis EXT Differential Diagnosis: Cellulitis, Deep Vein Thrombosis, Compartment Syndrome, Fracture, Dislocation, Laceration, Septic X-Ray, Labs, Meds, VS Vital Signs Date Time Temp Pulse Resp B/P (MAP) Pulse Ox O2 Delivery O2 Flow Rate FiO2 06/17/24 11:14 97.3 102 16 118/78 (91) 94 97.3 06/17/24 11:14 102 16 94 Room Air 06/17/24 10:18 98.0 104 20 148/89 (108) 96 Lab Test 06/17/24 10:30 Range/Units White Blood Count 11.8 H 4.4-10.8 10^3/uL Red Blood Count 4.98 4.5-5.90 10^6/uL Hemoglobin 14.3 13.5-17.5 g/dL Hematocrit 43.2 41.0-53.0 % Mean Corpuscular Volume 86.7 80.0-100.0 fL Mean Corpuscular Hemoglobin 28.8 28.0-32.0 pg Mean Corpuscular Hemoglobin Concent 33.2 32.0-36.0 g/dL Red Cell Distribution Width 13.4 11.8-14.3 % Platelet Count 450 140-450 10^3/uL Mean Platelet Volume 6.9 6.9-10.8 fL Neutrophils (%) (Auto) 80.3 H 37.0-80.0 % Lymphocytes (%) (Auto) 13.8 10.0-50.0 % Monocytes (%) (Auto) 5.4 0.0-12.0 % Eosinophils (%) (Auto) 0.2 0.0-7.0 % Basophils (%) (Auto) 0.3 0.0-2.0 % Neutrophils # (Auto) 9.5 H 1.6-8.6 10 ^3/uL Lymphocytes # (Auto) 1.6 0.4-5.4 10 ^3/uL Monocytes # (Auto) 0.6 0-1.3 10 ^3/uL Eosinophils # (Auto) 0 0-0.8 10 ^3/uL Basophils # (Auto) 0 0-0.2 10 ^3/uL Nucleated Red Blood Cells 0.1 % Prothrombin Time 10.3 9.3-11.8 sec Prothrombin Time INR 0.97 0.9-1.15 Activated Partial Thromboplast Time 30.4 24.5-34.5 SEC D-Dimer, Quantitative 0.69 H 0.0-0.49 mg/L FEU Sodium Level 135 L 136-145 mmol/L Potassium Level 4.0 3.5-5.1 mmol/L Chloride Level 99 98-107 mmol/L Carbon Dioxide Level 26 20-31 mmol/L Anion Gap 10 5-15 Blood Urea Nitrogen 15 9-23 mg/dL Creatinine 1.08 0.700-1.30 mg/dL Glomerular Filtration Rate Calc 71 >90 mL/min BUN/Creatinine Ratio 13.9 10.0-20.0 Serum Glucose 217 H 74-106 mg/dL Calcium Level 9.9 8.7-10.4 mg/dL Magnesium Level 1.8 1.6-2.6 mg/dL Total Bilirubin 0.6 0.2-1.0 mg/dL Aspartate Amino Transferase (AST) 15 13-40 U/L Alanine Aminotransferase (ALT) 17 7-40 U/L Alkaline Phosphatase 106 46-116 U/L Troponin I High Sensitivity 13 </=54 ng/L B-Type Natriuretic Peptide 72.45 0-100 pg/mL Total Protein 8.2 5.7-8.2 g/dL Albumin 4.8 3.2-4.8 g/dL [place] [address] Ph: [phone] DIAGNOSTIC IMAGING Diagnostic Imaging Report : [id number] Signed PATIENT: BENITO GARCIA ACCT: [id number] UNIT: [id number] : 1950 LOC: ER ROOM / BED: / AGE / SEX: 74 / M ADM STATUS: REG ER SERVICE 1014 ORDERING PHYSICIAN: MARISOL DONOVAN MD PROCEDURE(s): CXRP - CHEST PORTABLE REASON: cough ORDER NUMBER(s): [id number], ACCESSION NUMBER(s): [id number] EXAM: XY CHEST PORTABLE Indication: cough Technique: Single frontal view of the chest was obtained Comparison: XY CHEST PORTABLE on DOS: 08/12/23, XY CHEST PORTABLE on DOS: 08/10/23, CXRP on DOS: 01/30/22, CHEST PORTABLE on DOS: 01/30/22, CXRP on DOS: 01/26/22 FINDINGS: Lines and Tubes: None Lungs: Mild interstitial opacities. Low lung volumes. Pleura: No effusion. No pneumothorax. Cardiomediastinal contours: Unremarkable Atherosclerotic vascular calcifications of the thoracic aorta are noted. Bones: No acute osseous abnormality. IMPRESSION: Mild interstitial opacities with low lung volumes may reflect mild pulmonary fibrosis. Other differential considerations include atypical infection or pulmonary edema. ATED BY: MARGARITA CHATTERJEE MD DICTATED DATE/TIME: 06/17/24 1031 SIGNED BY: MARGARITA CHATTERJEE MD SIGNED DATE/TIME: 06/17/24 1031 CC: [place] [address] Ph: [phone] DIAGNOSTIC IMAGING Diagnostic Imaging Report : [id number] Signed PATIENT: BENITO GARCIA ACCT: [id number] UNIT: [id number] : 1950 LOC: ER ROOM / BED: / AGE / SEX: 74 / M ADM STATUS: REG ER SERVICE 1037 ORDERING PHYSICIAN: MARISOL DONOVAN MD PROCEDURE(s): LTOE2 - L 2ND TOE XRAY REASON: osteomyliti? ORDER NUMBER(s): [id number], ACCESSION NUMBER(s): [id number] EXAM: XY L 2ND TOE XRAY CLINICAL INDICATION: osteomyliti TECHNIQUE: XY L 2ND TOE XRAY Comparison: XY L 1ST TOE XRAY on DOS: 08/06/23 FINDINGS/IMPRESSION: There amputation of the 1st proximal phalanx. Bony resorptive changes involving the 2nd distal phalanx, suspicious for osteomyelitis. ATED BY: DINORAH ESPINOZA MD DICTATED DATE/TIME: 06/17/24 1122 SIGNED BY: DINORAH ESPINOZA MD SIGNED DATE/TIME: 06/17/24 112 CC: X-Ray, Labs, Meds, VS Comment This 74-year-old male presents secondary to necrosis to the distal tip of his left 2nd toe. Patient has already had amputations of bilateral 1st toes. He was able to partially remove the eschar of the distal tip of the toe. There was seropurulent discharge. When he was concerned the patient has acute osteomyelitis. After wound culture and blood culture taken, the patient was started on vancomycin IV x1. The patient will be admitted for further workup and management of his acute osteomyelitis. Time of 1ST Reevaluation: 11:07 Reevaluation 1ST: Unchanged Patient Education/Counseling: Diagnosis, Treatment, Prognosis Family Education/Counseling: No Family Present Additional Information The following tests were ordered, and results were reviewed by me: RAPID INFLUENZA A&B, TROP -x3, CBC, CMP, BNP, PTPTT, D-DIMER, XY CHEST, UA, MAGNESIUM, XY L 2ND TOE, WOUND CULTURE W/ GS I reviewed and agreed with the following test results read by other providers: XY CHEST, XY L 2ND TOE, I discussed treatment and results with medical personnel and patient Departure 1 Departure Time of Disposition: 11:52 Impression: Primary Impression: Acute osteomyelitis involving lower leg Disposition: ADMITTED INPATIENT Admit to: Med Surg Condition: Serious Critical Care Note Critical Care Time?: No Stability Stability form required: No I personally scribed for MARISOL DONOVAN MD ([email or web address]) on 06/17/24 at 10:47. Electronically submitted by Park Chacon ([email or web address]). I personally scribed for MARISOL DONOVAN MD ([email or web address]) on 06/17/24 at 10:49. Electronically submitted by Park Chacon ([email or web address]). I personally scribed for MARISOL DONOVAN MD ([email or web address]) on 06/17/24 at 11:48. Electronically submitted by Park Chacon ([email or web address]). MARISOL DONOVAN MD Jun 17, 2024 10:47
[2024-06-17 10:49] LABS: Hematocrit 43.2 % (41.0-53.0); Hemoglobin 14.3 g/dL (13.5-17.5); Lymphocytes # (auto) 1.6 10 ^3/uL (0.4-5.4); Lymphocytes % (auto) 13.8 % (10.0-50.0); Mean Corpuscular Hemoglobin 28.8 pg (28.0-32.0); Mean Corpuscular Hgb Conc. 33.2 g/dL (32.0-36.0); Mean Corpuscular Volume 86.7 fL (80.0-100.0); Monocytes # (auto) 0.6 10 ^3/uL (0-1.3); Monocytes % (auto) 5.4 % (0.0-12.0); Neutrophils % (auto) 80.3 % (37.0-80.0); Nucleated Red Blood Cells % 0.1 %; Platelet Count (auto) 450 10^3/uL (140-450); Red Blood Cells 4.98 10^6/uL (4.5-5.90); Red Cell Distribution Width 13.4 % (11.8-14.3); White Blood Cell 11.8 10^3/uL (4.4-10.8)
[2024-06-17 11:07] LABS: Alanine Aminotransferase 17 U/L (7-40); Alkaline Phosphatase 106 U/L (46-116); Anion Gap 10 (5-15); Aspartate Aminotransferase 15 U/L (13-40); BUN/Creatinine Ratio 13.9 (10.0-20.0); Bilirubin, Total 0.6 mg/dL (0.2-1.0); Blood Urea Nitrogen 15 mg/dL (9-23); Calcium 9.9 mg/dL (8.7-10.4); Carbon Dioxide 26 mmol/L (20-31); Chloride 99 mmol/L (98-107); INR 0.97 (0.9-1.15); Magnesium 1.8 mg/dL (1.6-2.6); Partial Thromboplastin Time 30.4 SEC (24.5-34.5); Prothrombin Time 10.3 sec (9.3-11.8)
[2024-06-17 11:12] LABS: Albumin 4.8 g/dL (3.2-4.8); Glucose 217 mg/dL (74-106); Sodium 135 mmol/L (136-145); Total Protein 8.2 g/dL (5.7-8.2)
--- NOTE | 2024-06-17 11:25 | DVH ---
EXAM: XY L 2ND TOE XRAY CLINICAL INDICATION: osteomyliti TECHNIQUE: XY L 2ND TOE XRAY Comparison: XY L 1ST TOE XRAY on DOS: 08/06/23 FINDINGS/IMPRESSION: There amputation of the 1st proximal phalanx. Bony resorptive changes involving the 2nd distal phalan x, suspicious for osteomyelitis.
[2024-06-17 12:55] LABS: Rapid Influenza A Negative (Negative); Rapid Influenza B Negative (Negative)
[2024-06-17 13:18] VITALS: PULSE 98; RESP 16; O2SAT 98
--- NOTE | 2024-06-17 17:14 | DVHHP2 ---
Admitting Diagnosis: Left foot pain History of Present Illness 74 year old male presents to the ED with a chief complaint of black LT 2nd toe onset 1 week. Patient states he has a PMHx of DM, HTN, HLD, GERD. He has his bilateral great big toes amputated. He noticed his LT 2nd toe was black, numb for the past 2 weeks. Denies fever, chest pain, shortness of breath, nausea, vomiting, diarrhea. No other symptoms or modifying factors present at this time. PAST MEDICAL HISTORY: DM, GERD, High Lipids, HTN Family History: No family hx of Cancer, No family hx of DM, No family hx of Heart emmanuel Social History Smoker: Non-Smoker Alcohol: Denies ETOH Use Drugs: Denies Drug Use Lives In: Home Patient Family History: Patient reports no known family medical history. Allergies: Coded Allergies: NO KNOWN ALLERGIES (Unverified , 01/26/22) Home Meds Active Scripts Clindamycin Hcl (CLEOCIN) 150 Mg Cap, 300 MG PO TID for 10 Days, #30 CAP Prov:NICHOLE NAYLOR DO 08/19/23 Doxycycline Hyclate (Doxycycline Hyclate) 100 Mg Cap, 100 MG PO BID for 14 Days, #28 CAP Prov:NICHOLE NAYLOR [facility] 08/19/23 Vancomycin HCl (Vancomycin HCl) 1,000 Mg Inj, 1000 MG IV BID for 42 Days, INJ Prov:AUSTIN SHIRLEY RESIDENT 08/13/23 Reported Medications Metformin Hydrochloride (Metformin Hcl) 500 Mg Tab, 1000 MG PO BIDBRS for 30 Days, MG 07/09/22 Tamsulosin Hcl (Tamsulosin Hcl) 0.4 Mg Cap, 0.4 MG PO DAILY for 30 Days, MG 07/09/22 Glipizide (Glipizide) 10 Mg Tab, 20 MG PO BIDAC for 30 Days, MG 07/09/22 Gabapentin (Gabapentin) 300 Mg Cap, 300 MG PO HSPRN for 30 Days, MG 07/09/22 Sacubitril-Valsartan (Entresto 24-26 mg) 1 Tab Tab, 1 TAB PO BID, TAB 07/09/22 Celecoxib (Celebrex) 100 Mg Cap, 200 MG PO DAILYP PRN for MILD PAIN (1-3 PAIN SCALE) for 30 Days, MG 07/09/22 Atorvastatin Calcium (ATORVASTATIN CALCIUM) 40 Mg Tab, 40 MG PO HS, TAB 07/09/22 Vital Signs Vital Signs Date Time Temp Pulse Resp B/P (MAP) Pulse Ox O2 Delivery O2 Flow Rate FiO2 06/17/24 15:13 98.4 95 18 123/74 (90) 98 98.4 06/17/24 13:18 Room Air* 0 21 Physical Exam Generally 74, well nourished well developed. Sitting on chair in no apparent distress HEENT-atraumatic normocephalic Heart-regular rate and rhythm Lungs clear to auscultate Abdomen soft nontender nondistended Musculoskeletal-left 2nd toe, ulcer, draining erythema, edema. 1st toe amputated healing well. Neuro: AOx3, decrease sensation on left foot, chronic. strenth intact. Results Labs Test 06/17/24 11:59 06/17/24 10:30 Range/Units Influenza Type A Antigen Negative Negative Influenza Type B Antigen Negative Negative White Blood Count 11.8 H 4.4-10.8 10^3/uL Red Blood Count 4.98 4.5-5.90 10^6/uL Hemoglobin 14.3 13.5-17.5 g/dL Hematocrit 43.2 41.0-53.0 % Mean Corpuscular Volume 86.7 80.0-100.0 fL Mean Corpuscular Hemoglobin 28.8 28.0-32.0 pg Mean Corpuscular Hemoglobin Concent 33.2 32.0-36.0 g/dL Red Cell Distribution Width 13.4 11.8-14.3 % Platelet Count 450 140-450 10^3/uL Mean Platelet Volume 6.9 6.9-10.8 fL Neutrophils (%) (Auto) 80.3 H 37.0-80.0 % Lymphocytes (%) (Auto) 13.8 10.0-50.0 % Monocytes (%) (Auto) 5.4 0.0-12.0 % Eosinophils (%) (Auto) 0.2 0.0-7.0 % Basophils (%) (Auto) 0.3 0.0-2.0 % Neutrophils # (Auto) 9.5 H 1.6-8.6 10 ^3/uL Lymphocytes # (Auto) 1.6 0.4-5.4 10 ^3/uL Monocytes # (Auto) 0.6 0-1.3 10 ^3/uL Eosinophils # (Auto) 0 0-0.8 10 ^3/uL Basophils # (Auto) 0 0-0.2 10 ^3/uL Nucleated Red Blood Cells 0.1 % Prothrombin Time 10.3 9.3-11.8 sec Prothrombin Time INR 0.97 0.9-1.15 Activated Partial Thromboplast Time 30.4 24.5-34.5 SEC D-Dimer, Quantitative 0.69 H 0.0-0.49 mg/L FEU Sodium Level 135 L 136-145 mmol/L Potassium Level 4.0 3.5-5.1 mmol/L Chloride Level 99 98-107 mmol/L Carbon Dioxide Level 26 20-31 mmol/L Anion Gap 10 5-15 Blood Urea Nitrogen 15 9-23 mg/dL Creatinine 1.08 0.700-1.30 mg/dL Glomerular Filtration Rate Calc 71 >90 mL/min BUN/Creatinine Ratio 13.9 10.0-20.0 Serum Glucose 217 H 74-106 mg/dL Calcium Level 9.9 8.7-10.4 mg/dL Magnesium Level 1.8 1.6-2.6 mg/dL Total Bilirubin 0.6 0.2-1.0 mg/dL Aspartate Amino Transferase (AST) 15 13-40 U/L Alanine Aminotransferase (ALT) 17 7-40 U/L Alkaline Phosphatase 106 46-116 U/L Troponin I High Sensitivity 13 </=54 ng/L B-Type Natriuretic Peptide 72.45 0-100 pg/mL Total Protein 8.2 5.7-8.2 g/dL Albumin 4.8 3.2-4.8 g/dL Primary Diagnosis Left foot osteomyelitis 2' Diagnosis/Comorbidities DM, GERD, High Lipids, HTN Plan X-ray shows left foot possible bony involvement MRI left foot Podiatry consult Vanc and Zosyn for broad-spectrum antibiotics Check blood culture Check ESR, CRP Hold Antihypertensives while septic Insulin sliding scale. Fingerstick 140-180 Wound care Pain control Bowel rest Full code SCD for DVT prophylaxis PPI for GI prophylaxis Regular diet. NPO midnight Plan discussed with: Patient Problems List: (1) Acute osteomyelitis involving lower leg Status: Acute (2) Lower extremity cellulitis Status: Acute Date of Service: Jun 17, 2024 Billing Provider: GISELA WISDOM MD Common Visit Codes: [id number] INP/OBS CARE (HIGH) GISELA WISDOM MD Jun 17, 2024 17:14
[2024-06-17] MEDS ORDERED: ACETAMINOPHEN 325 MG TAB PO PRN (17:30)
[2024-06-17] MEDS ORDERED: ONDANSETRON HCL 4 MG/2 ML VIAL IV PRN (17:30)
[2024-06-17] MEDS ORDERED: HYDROcodone-ACET 5/325MG TAB PO PRN (17:30)
[2024-06-17] MEDS ORDERED: DOCUSATE SOD 100 MG CAP PO PRN (17:30)
[2024-06-17] MEDS ORDERED: PIPERACILLIN-TAZOB 3.375GM 100 ML IV SCH (18:15)
[2024-06-17] MEDS ORDERED: VANCOMYCIN PER PHARMACY 0 MG IV SCH (19:00)
[2024-06-17] MEDS: PIPERACILLIN-TAZOB 3.375GM 100 ML IV ONE (19:37)
[2024-06-17 20:06] LABS: Erythrocyte Sedimentation Rate 63 mm/hr (0-20)
[2024-06-17] MEDS: VANCOMYCIN 1GM/250mL NS or D5W KIT IV SCH (20:19)
[2024-06-17 22:17] VITALS: BP 163/88; PULSE 89; RESP 12; RESP 16; TEMP 98.1; O2SAT 0; O2SAT 96
[2024-06-17] MEDS: SODIUM CHLOR 0.9% PF (SALINE LOCK) 10ML VIAL/SYR IV SCH (22:45)
[2024-06-18] VITALS (7 sets, daily range): BP systolic 133–166; BP diastolic 69–88; PULSE 68–89; RESP 12–19; TEMP 98–98.8; O2SAT 95–98
[2024-06-18] MEDS ORDERED: DEXTROSE (50%) 50ML SYRG IV PRN (01:45)
[2024-06-18] MEDS: PIPERACILLIN-TAZOB 3.375GM 100 ML IV SCH (02:19)
[2024-06-18 06:10] LABS: Basophils # (auto) 0 10 ^3/uL (0-0.2); Basophils % (auto) 0.6 % (0.0-2.0); Eosinophils # (auto) 0.1 10 ^3/uL (0-0.8); Eosinophils % (auto) 0.7 % (0.0-7.0); Hematocrit 39.6 % (41.0-53.0); Hemoglobin 13.1 g/dL (13.5-17.5); Lymphocytes # (auto) 1.1 10 ^3/uL (0.4-5.4); Lymphocytes % (auto) 14.5 % (10.0-50.0); Mean Corpuscular Hemoglobin 28.6 pg (28.0-32.0); Mean Corpuscular Hgb Conc. 33.1 g/dL (32.0-36.0); Mean Corpuscular Volume 86.3 fL (80.0-100.0); Monocytes # (auto) 0.6 10 ^3/uL (0-1.3); Monocytes % (auto) 7.8 % (0.0-12.0); Neutrophils % (auto) 76.4 % (37.0-80.0); Platelet Count (auto) 387 10^3/uL (140-450); Red Blood Cells 4.59 10^6/uL (4.5-5.90); Red Cell Distribution Width 13.5 % (11.8-14.3); White Blood Cell 7.9 10^3/uL (4.4-10.8)
[2024-06-18] MEDS: InsuLIN REG 1unit/0.01ml Soln (100units/ml) SC SCH ×2 (06:22→21:35)
[2024-06-18] MEDS: ACCU-CHEK COMFORT CURVE STRIP VI SCH (06:23)
[2024-06-18 06:45] LABS: Alanine Aminotransferase 12 U/L (7-40); Albumin 3.9 g/dL (3.2-4.8); Alkaline Phosphatase 89 U/L (46-116); Anion Gap 11 (5-15); Blood Urea Nitrogen 19 mg/dL (9-23); Calcium 9.6 mg/dL (8.7-10.4); Carbon Dioxide 23 mmol/L (20-31); Chloride 103 mmol/L (98-107); Potassium 3.7 mmol/L (3.5-5.1); Sodium 137 mmol/L (136-145)
[2024-06-18 06:46] LABS: Bilirubin, Total 0.5 mg/dL (0.2-1.0); Total Protein 6.9 g/dL (5.7-8.2)
[2024-06-18 06:52] LABS: Aspartate Aminotransferase 10 U/L (13-40); Glucose 188 mg/dL (74-106)
--- NOTE | 2024-06-18 13:18 | DVH ---
EXAMINATION: MRI MRI L FOOT WO CONTRAST TECHNIQUE: MRI of the Left ankle was performed. The following sequences were obtained without contra st: Axial PD Axial PD FS Coronal T1 Coronal PD FS Coronal oblique PD FS Sagittal T1 Sagittal T2 HISTORY: R/O OM COMPARISON: Plain films of 06/17/2024 FINDINGS: There is increased signal in the distal phalanx of the 2nd digit, coronal image 3, series 6. Findings consistent with osteomyelitis. Postsurgical changes of the 1st digit No fracture Impression: Findings consistent with osteomyelitis of the distal phalanx of the 2nd digit well seen on coronal im age 3, series 6. No soft tissue abscess. No fracture.
[2024-06-18] MEDS: VANCOMYCIN 1.25GM/250ML 250 ML IV SCH (16:39)
--- NOTE | 2024-06-18 16:48 | DVHPN2 ---
Subjective I am assuming the care of the patient from today onwards who was under the care of the hospitalist team. Patient is continually complaining of left foot pain. 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 Medications Current Medications Medications Dose Ordered Sig/Nida Route Start Time Stop Time Status Last Admin Dose Admin Piperacillin Sod/ Tazobactam Sod 100 ml @ 25 mls/hr Q8H IV 06/18/24 02:00 06/18/24 09:49 25 MLS/HR Sodium Chloride 10 ml Q8HR IV 06/17/24 22:00 06/18/24 14:04 10 ML Docusate Sodium 100 mg BIDPRN PRN PO 06/17/24 17:30 Acetaminophen 650 mg Q6HP PRN PO 06/17/24 17:30 Acetaminophen/ Hydrocodone Bitart 1 tab Q4HP PRN PO 06/17/24 17:30 Ondansetron HCl 4 mg Q4HP PRN IV 06/17/24 17:30 Vancomycin HCl 0 ml @ 0 mls/hr UD IV 06/17/24 19:00 Diagnostic Test (Pha) 1 strip ACHS 06/18/24 07:00 06/18/24 11:25 1 STRIP Insulin Human Regular HS SC 06/18/24 22:00 Insulin Human Regular AC SC 06/18/24 07:00 06/18/24 11:25 2 UNITS Dextrose 50 ml UD PRN IV 06/18/24 01:45 Vancomycin HCl 250 ml @ 200 mls/hr Q16H IV 06/18/24 15:00 06/18/24 16:39 200 MLS/HR Laboratory Results Laboratory Tests 06/18/24 05:00 Chemistry Test 06/18/24 05:00 Albumin 3.9 g/dL (3.2-4.8) Calcium Level 9.6 mg/dL (8.7-10.4) Total Protein 6.9 g/dL (5.7-8.2) LFT Test 06/18/24 05:00 Alanine Aminotransferase (ALT) 12 U/L (7-40) Alkaline Phosphatase 89 U/L (46-116) Aspartate Amino Transferase (AST) 10 U/L (13-40) L Total Bilirubin 0.5 mg/dL (0.2-1.0) Microbiology Microbiology Date/Time Source Procedure Growth Status 06/17/24 12:49 Blood Blood Culture - Preliminary NO GROWTH AFTER 24 HOURS OF INCUBATION. Resulted 06/17/24 11:20 Toe Gram Stain - Final Resulted 06/17/24 11:20 Toe Wound Culture - Preliminary Resulted Assessment/Plan Assessment/Plan 74-year-old male with known history of diabetes mellitus type 2 hypertension, dyslipidemia, previous history of bilateral foot surgery presented to the hospital with left 2nd toe blackening for last one week found to have 1. Acute osteomyelitis of the left foot 2. Diabetes mellitus type 2 3. Hypertension 4. Dyslipidemia -IV antibiotics, podiatry consultation, infectious disease consultation. Plan discussed with: Patient My Orders Orders - THELMA REDD MD Procedure Category Date Status Time * Infectious [place]- CONS 06/18/24 Transmitted Dana Leach 14:41 Apply/Change Dressing ANUP 06/18/24 In Process 15:03 * Dietary Consult CONS 06/18/24 Transmitted 15:05 Date of Service: Jun 18, 2024 Billing Provider: THELMA REDD MD Common Visit Codes: [id number] INP/OBS CARE(MOD) THELMA REDD MD Jun 18, 2024 16:48
[2024-06-18] MEDS: hydrALAZINE HCL 20 MG/ML VL IV PRN (18:52)
--- NOTE | 2024-06-18 21:49 | DVHINCON2 ---
Date of service: Jun 18, 2024 Family History: Patient reports no known family medical history. Allergies: Coded Allergies: NO KNOWN ALLERGIES (Unverified , 01/26/22) Home Meds Active Scripts Clindamycin Hcl (CLEOCIN) 150 Mg Cap, 300 MG PO TID for 10 Days, #30 CAP Prov:NICHOLE N[facility]OR [facility] 08/19/23 Doxycycline Hyclate (Doxycycline Hyclate) 100 Mg Cap, 100 MG PO BID for 14 Days, #28 CAP Prov:NICHOLE NAYLOR [facility] 08/19/23 Vancomycin HCl (Vancomycin HCl) 1,000 Mg Inj, 1000 MG IV BID for 42 Days, INJ Prov:AUSTIN SHIRLEY [facility] 08/13/23 Reported Medications Metformin Hydrochloride (Metformin Hcl) 500 Mg Tab, 1000 MG PO BIDBRS for 30 Days, MG 07/09/22 Tamsulosin Hcl (Tamsulosin Hcl) 0.4 Mg Cap, 0.4 MG PO DAILY for 30 Days, MG 07/09/22 Glipizide (Glipizide) 10 Mg Tab, 20 MG PO BIDAC for 30 Days, MG 07/09/22 Gabapentin (Gabapentin) 300 Mg Cap, 300 MG PO HSPRN for 30 Days, MG 07/09/22 Sacubitril-Valsartan (Entresto 24-26 mg) 1 Tab Tab, 1 TAB PO BID, TAB 07/09/22 Celecoxib (Celebrex) 100 Mg Cap, 200 MG PO DAILYP PRN for MILD PAIN (1-3 PAIN SCALE) for 30 Days, MG 07/09/22 Atorvastatin Calcium (ATORVASTATIN CALCIUM) 40 Mg Tab, 40 MG PO HS, TAB 07/09/22 Current Medications Current Medications Medications (Trade) Dose Ordered Sig/Nida Route PRN Reason Start Time Stop Time Status Last Admin Piperacillin Sod/ Tazobactam Sod 100 ml @ 25 mls/hr Q8H IV 06/18/24 02:00 06/18/24 17:59 Sodium Chloride (Saline Lock Ns) 10 ml Q8HR IV 06/17/24 22:00 06/18/24 14:04 Diagnostic Test (Pha) (Accu-Chek Comfort Curve T) 1 strip ACHS 06/18/24 07:00 06/18/24 17:16 Insulin Human Regular (InsuLIN R) HS SC 06/18/24 22:00 06/18/24 21:35 Insulin Human Regular (InsuLIN R) AC SC 06/18/24 07:00 06/18/24 11:25 Dextrose 50 ml UD PRN IV Blood Sugar LESS THAN 60 06/18/24 01:45 Vancomycin HCl 250 ml @ 200 mls/hr Q16H IV 06/18/24 15:00 06/18/24 16:39 Hydralazine HCl (Apresoline Injection) 10 mg Q6HP PRN IV SBP>160 06/18/24 18:40 06/18/24 18:52 Vital Signs Vital Signs Date Time Temp Pulse Resp B/P (MAP) Pulse Ox O2 Delivery O2 Flow Rate FiO2 06/18/24 21:00 98.4 79 18 151/74 (99) 95 98.4 06/18/24 20:00 Room Air* 0 21 Labs/Diagnostic Data Labs Test 06/18/24 16:46 06/18/24 05:00 06/17/24 11:59 06/17/24 10:30 Range/Units POC Glucose 127 H 70-106 mg/dl White Blood Count 7.9 # 4.4-10.8 10^3/uL Red Blood Count 4.59 4.5-5.90 10^6/uL Hemoglobin 13.1 L 13.5-17.5 g/dL Hematocrit 39.6 L 41.0-53.0 % Mean Corpuscular Volume 86.3 80.0-100.0 fL Mean Corpuscular Hemoglobin 28.6 28.0-32.0 pg Mean Corpuscular Hemoglobin Concent 33.1 32.0-36.0 g/dL Red Cell Distribution Width 13.5 11.8-14.3 % Platelet Count 387 140-450 10^3/uL Mean Platelet Volume 7.1 6.9-10.8 fL Neutrophils (%) (Auto) 76.4 37.0-80.0 % Lymphocytes (%) (Auto) 14.5 10.0-50.0 % Monocytes (%) (Auto) 7.8 0.0-12.0 % Eosinophils (%) (Auto) 0.7 0.0-7.0 % Basophils (%) (Auto) 0.6 0.0-2.0 % Neutrophils # (Auto) 6.0 1.6-8.6 10 ^3/uL Lymphocytes # (Auto) 1.1 0.4-5.4 10 ^3/uL Monocytes # (Auto) 0.6 0-1.3 10 ^3/uL Eosinophils # (Auto) 0.1 0-0.8 10 ^3/uL Basophils # (Auto) 0 0-0.2 10 ^3/uL Nucleated Red Blood Cells 0.0 % Sodium Level 137 136-145 mmol/L Potassium Level 3.7 3.5-5.1 mmol/L Chloride Level 103 98-107 mmol/L Carbon Dioxide Level 23 20-31 mmol/L Anion Gap 11 5-15 Blood Urea Nitrogen 19 9-23 mg/dL Creatinine 1.00 0.700-1.30 mg/dL Glomerular Filtration Rate Calc 78 >90 mL/min BUN/Creatinine Ratio 19.0 10.0-20.0 Serum Glucose 188 H 74-106 mg/dL Calcium Level 9.6 8.7-10.4 mg/dL Total Bilirubin 0.5 0.2-1.0 mg/dL Aspartate Amino Transferase (AST) 10 L 13-40 U/L Alanine Aminotransferase (ALT) 12 7-40 U/L Alkaline Phosphatase 89 46-116 U/L Total Protein 6.9 5.7-8.2 g/dL Albumin 3.9 3.2-4.8 g/dL Influenza Type A Antigen Negative Negative Influenza Type B Antigen Negative Negative Erythrocyte Sedimentation Rate 63 H 0-20 mm/hr Prothrombin Time 10.3 9.3-11.8 sec Prothrombin Time INR 0.97 0.9-1.15 Activated Partial Thromboplast Time 30.4 24.5-34.5 SEC D-Dimer, Quantitative 0.69 H 0.0-0.49 mg/L FEU Magnesium Level 1.8 1.6-2.6 mg/dL Troponin I High Sensitivity 13 </=54 ng/L C-Reactive Protein High Sensitivity 4.06 H <1.0 mg/dL B-Type Natriuretic Peptide 72.45 0-100 pg/mL Microbiology Date/Time Source Procedure Growth Status 06/17/24 12:49 Blood Blood Culture - Preliminary NO GROWTH AFTER 24 HOURS OF INCUBATION. Resulted 06/17/24 11:20 Toe Gram Stain - Final Resulted 06/17/24 11:20 Toe Wound Culture - Preliminary Resulted Problems(with codes): (1) Sepsis (2) Pulmonary vascular congestion (3) Elevated lactic acid level (4) Wound of foot (5) Elevated troponin (6) Acute osteomyelitis involving lower leg (7) Lower extremity cellulitis (8) PAD (peripheral artery disease) (9) Osteomyelitis of ankle or foot, left, acute Plan/Recommendation ASSESSMENT AND PLAN: ID Problem List: - Recurrent diabetic foot infection - Left second toe necrosis with suspected osteomyelitis - Peripheral arterial disease - History of left great toe amputation - Type 2 diabetes mellitus Assessment: Mr. Carrillo is a 74-year-old male with a past medical history of hypertension, benign prostatic hyperplasia, and type 2 diabetes mellitus. He has a significant history of diabetic foot infections, including a left great toe gangrene with osteomyelitis that necessitated amputation, as well as documented peripheral arterial disease with complete occlusion of the left anterior tibial artery (status post angiography with successful PCTA on 08/10/2023). He initially presented with a one?week history of left big toe infection; however, over the past six months, he has developed black necrosis of the left second toe that is painful and draining, with associated erythema and edema. Imaging studies (toe X?ray and foot MRI) reveal bony changes and abnormal signal intensity within the distal phalanx of the left second toe, findings consistent with osteomyelitis. Recent laboratory evaluations reveal a white blood cell count of 11.8 and a hemoglobin of 14.3; current blood cultures are negative. Plan: - Continue vancomycin and initiate Zosyn. - Recommend Podiatry evaluation for debridement and potential amputation of the necrotic left second toe. - Arrange for a vascular consult with Doppler evaluation to assess peripheral arterial flowparticularly the left anterior tibial artery territory. - Obtain repeat blood cultures and deep tissue cultures (aerobic, anaerobic, fungal, and AFB). - Order hemoglobin A1C to assess diabetic control. - Continue close clinical monitoring for treatment response. Isolation Precautions: Standard Assessment and plan discussed with the patient as detailed above. Plan is subject to change pending new laboratory and diagnostic study results. Richard Leach M.D. History: The patient's chart and medications were reviewed in detail and the patient was seen and examined. History obtained from: Patient Mr. Carrillo is a 74-year-old male with a past medical history significant for hypertension, benign prostatic hyperplasia, and type 2 diabetes mellitus. He presented with a one?week history of left big toe infection. He reports a chronic course of diabetic foot infections, with an initial episode of left great toe gangrene and osteomyelitis dating back to August of last year, which necessitated amputation at the metatarsophalangeal joint. Over the past six months, he has developed a painful, draining, and necrotic lesion on his left second toe, with associated erythema and edema. He also has a history of peripheral arterial disease manifested by complete occlusion of the left anterior tibial artery, for which he underwent angiography with successful PCTA on 08/10/2023. Review of Systems: A complete 10-system review was performed and is negative except as noted below. - CONSTITUTIONAL: Denies weight loss; reports Tmax of 99F; denies chills. - HEENT: Denies changes in vision or hearing. - RESPIRATORY: Denies shortness of breath and cough. - CV: Denies chest pain and palpitations. - GI: Denies abdominal pain, nausea, vomiting, and diarrhea. - : Denies dysuria and urinary frequency. - MSK: Denies joint pain; reports localized toe pain. - SKIN: Positive for chronic diabetic foot infections. Reports black discoloration, pain, and drainage with surrounding erythema and edema of the left second toe. - NEUROLOGICAL: Denies headache, dizziness, or syncope. - PSYCHIATRIC: Denies recent mood changes, anxiety, or depression. Past Medical History: - Hypertension - Benign Prostatic Hyperplasia - Type 2 Diabetes Mellitus - Peripheral Arterial Disease Past Surgical History: - Right great toe amputation (date not specified) - Left great toe amputation at the metatarsophalangeal joint (August 2023) Home Medications: - Currently on vancomycin (6?week course initiated following prior infection) - Zosyn (initiated on current admission) Additional chronic medications not provided. Allergies: - No Known Allergies Family History: - Not on file Social History: - Former smoker - Denies alcohol use - Denies recreational drug use Social Determinants of Health: - Not on file Objective: Vital Signs on Arrival: - Temp: 99 F - BP: 150/77 mmHg - Pulse: 78 bpm - Respirations: 20/min - SpO?: 93% on room air Physical Exam: General:???NAD Neck:???Supple. No masses. HEENT:???PERRL. Normal lids and conjunctiva. Moist mucous membranes. Oropharynx without lesions, exudates, or excessive erythema. Normal appearance of the external aspects of the nose and ears. Heart:???Regular rhythm, normal rate. No murmur. No lower extremity edema. Lungs:???Normal respiratory effort. Clear to auscultation bilaterally. No wheezes. No crackles. Abdomen:???Soft. Non-tender. Non-distended. No masses or abdominal hernia. MSK:???No digital cyanosis. Normal strength and tone in all 4 limbs. Skin:???Warm and dry, no rashes. Notably, the left second toe exhibits black necrosis with surrounding erythema and edema. Neuro:???Alert. No facial droop or slurred speech. Extra-ocular movements intact. Sensation intact to soft touch in all 4 limbs. Psych:???Appropriate mood. Full affect. Oriented to person, place, time, and situation. Lines: - [No active lines recorded] Diagnostic Studies: Available diagnostic studies were reviewed personally. Significant relevant findings are noted below. Pertinent Imaging: Toe X-ray: - Impression: Bony changes involving the distal phalanx of the left second toe are suspicious for osteomyelitis. Foot MRI: - Impression: Abnormal signal intensity within the distal phalanx of the left second toe, consistent with osteomyelitis. Prior Vascular Study: Left extremity angiography (08/10/2023) - Impression: Complete occlusion of the midsegment of the left anterior tibial artery with reconstitution via plantar arches following successful PCTA. Laboratory Studies: - White Blood Cell Count: 11.8 - Hemoglobin: 14.3 - Platelet Count: Not clearly provided - Blood Cultures: Negative Plan discussed with: Patient RICHARD LEACH MD Jun 18, 2024 21:49
[2024-06-19] VITALS (8 sets, daily range): BP systolic 104–165; BP diastolic 45–84; PULSE 68–85; RESP 14–20; TEMP 97.8–98.6; O2SAT 93–100
[2024-06-19 06:54] LABS: Basophils # (auto) 0 10 ^3/uL (0-0.2); Basophils % (auto) 0.4 % (0.0-2.0); Eosinophils # (auto) 0.1 10 ^3/uL (0-0.8); Eosinophils % (auto) 1.4 % (0.0-7.0); Hematocrit 42.8 % (41.0-53.0); Hemoglobin 14.1 g/dL (13.5-17.5); Lymphocytes # (auto) 1.8 10 ^3/uL (0.4-5.4); Lymphocytes % (auto) 24.5 % (10.0-50.0); Mean Corpuscular Hemoglobin 28.7 pg (28.0-32.0); Mean Corpuscular Hgb Conc. 32.8 g/dL (32.0-36.0); Mean Corpuscular Volume 87.3 fL (80.0-100.0); Monocytes # (auto) 0.5 10 ^3/uL (0-1.3); Monocytes % (auto) 7.4 % (0.0-12.0); Neutrophils # (auto) 4.8 10 ^3/uL (1.6-8.6); Neutrophils % (auto) 66.3 % (37.0-80.0); Nucleated Red Blood Cells % 0.1 %; Platelet Count (auto) 424 10^3/uL (140-450); Red Blood Cells 4.91 10^6/uL (4.5-5.90); Red Cell Distribution Width 13.3 % (11.8-14.3); White Blood Cell 7.2 10^3/uL (4.4-10.8)
[2024-06-19 07:16] LABS: Alanine Aminotransferase 15 U/L (7-40); Albumin 4.5 g/dL (3.2-4.8); Alkaline Phosphatase 96 U/L (46-116); Anion Gap 12 (5-15); Aspartate Aminotransferase 14 U/L (13-40); BUN/Creatinine Ratio 15.5 (10.0-20.0); Bilirubin, Total 0.6 mg/dL (0.2-1.0); Blood Urea Nitrogen 16 mg/dL (9-23); Calcium 9.6 mg/dL (8.7-10.4); Carbon Dioxide 24 mmol/L (20-31); Chloride 102 mmol/L (98-107); Potassium 3.8 mmol/L (3.5-5.1); Sodium 138 mmol/L (136-145); Total Protein 7.6 g/dL (5.7-8.2)
[2024-06-19 07:26] LABS: Glucose 123 mg/dL (74-106)
[2024-06-19] MEDS: ENOXAPARIN SOD 40 MG/0.4 ML SYRINGE SC SCH (16:04)
--- NOTE | 2024-06-19 16:06 | DVHPN2 ---
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 Reviewed: Care Plan Changes from previous H/P or p: No Changes Objective Vitals Vital Signs Date Time Temp Pulse Resp B/P (MAP) Pulse Ox O2 Delivery O2 Flow Rate FiO2 06/19/24 13:00 98.4 82 20 165/81 (109) 97 98.4 06/19/24 08:00 Room Air* 0 21 Intake/Output Intake and Output 06/19/24 07:00 Intake Total 1240 ml Balance 1240 ml Intake Oral 890 ml IV Total 350 ml # Voids 3 Exam HEENT pupils are reactive Neck is supple CVS S1-S2 regular rate and rhythm Respiratory back clear GI positive bowel sound Extremity no pedal edema [employer] no motor deficit Medications Current Medications Medications Dose Ordered Sig/Nida Route Start Time Stop Time Status Last Admin Dose Admin Piperacillin Sod/ Tazobactam Sod 100 ml @ 25 mls/hr Q8H IV 06/18/24 02:00 06/19/24 09:47 25 MLS/HR Sodium Chloride 10 ml Q8HR IV 06/17/24 22:00 06/19/24 14:42 10 ML Docusate Sodium 100 mg BIDPRN PRN PO 06/17/24 17:30 Acetaminophen 650 mg Q6HP PRN PO 06/17/24 17:30 Acetaminophen/ Hydrocodone Bitart 1 tab Q4HP PRN PO 06/17/24 17:30 Ondansetron HCl 4 mg Q4HP PRN IV 06/17/24 17:30 Vancomycin HCl 0 ml @ 0 mls/hr UD IV 06/17/24 19:00 Diagnostic Test (Pha) 1 strip ACHS 06/18/24 07:00 06/19/24 14:42 1 STRIP Insulin Human Regular HS SC 06/18/24 22:00 06/18/24 21:35 3 UNITS Insulin Human Regular AC SC 06/18/24 07:00 06/18/24 11:25 2 UNITS Dextrose 50 ml UD PRN IV 06/18/24 01:45 Vancomycin HCl 250 ml @ 200 mls/hr Q16H IV 06/18/24 15:00 06/19/24 10:40 200 MLS/HR Hydralazine HCl 10 mg Q6HP PRN IV 06/18/24 18:40 06/18/24 18:52 10 MG Enoxaparin Sodium 40 mg DAILY SC 06/19/24 13:45 06/19/24 16:04 40 MG Laboratory Results Laboratory Tests 06/19/24 05:37 Chemistry Test 06/19/24 05:37 Albumin 4.5 g/dL (3.2-4.8) Calcium Level 9.6 mg/dL (8.7-10.4) Total Protein 7.6 g/dL (5.7-8.2) LFT Test 06/19/24 05:37 Alanine Aminotransferase (ALT) 15 U/L (7-40) Alkaline Phosphatase 96 U/L (46-116) Aspartate Amino Transferase (AST) 14 U/L (13-40) Total Bilirubin 0.6 mg/dL (0.2-1.0) Microbiology Microbiology Date/Time Source Procedure Growth Status 06/17/24 12:49 Blood Blood Culture - Preliminary NO GROWTH AFTER 48 HOURS OF INCUBATION. Resulted 06/17/24 11:20 Toe Gram Stain - Final Resulted 06/17/24 11:20 Toe Wound Culture - Preliminary Resulted Assessment/Plan Assessment/Plan 74-year-old male with known history of diabetes mellitus type 2 hypertension, dyslipidemia, previous history of bilateral foot surgery presented to the hospital with left 2nd toe blackening for last one week found to have 1. Acute osteomyelitis of the left foot 2. Diabetes mellitus type 2 3. Hypertension 4. Dyslipidemia -IV antibiotics, podiatry consultation, infectious disease consultation. Plan discussed with: Patient My Orders Orders - THELMA REDD MD Procedure Category Date Status Time Hydralazine Injection PHA 06/18/24 In Process (Apresoline Inject 18:40 Enoxaparin Sodium PHA 06/19/24 In Process (Lovenox) 13:45 Date of Service: Jun 19, 2024 Billing Provider: THELMA REDD MD Common Visit Codes: 57782-[id number] INP/OBS CARE(MOD) THELMA REDD MD Jun 19, 2024 16:06
--- NOTE | 2024-06-19 22:46 | DVHPN2 ---
Consult Progress Note Date Seen: Jun 19, 2024 Subjective Patient reports: Other (having pain in his second left toe which is necrotic and erethema around necrotic base and an ulcer with tenderness and soft spot ) Objective vital signs Vital Sign Date Time Temp Pulse Resp B/P (MAP) Pulse Ox O2 Delivery O2 Flow Rate FiO2 06/19/24 21:00 98.3 82 16 142/78 (99) 96 98.3 06/19/24 20:00 Room Air* 0 21 Total Intake and Output 06/18/24 06/18/24 06/19/24 15:00 23:00 07:00 Intake Total 100 ml 850 ml 290 ml Balance 100 ml 850 ml 290 ml medications Current Medications Medications Dose Ordered Sig/Nida Route Start Time Stop Time Status Last Admin Dose Admin Piperacillin Sod/ Tazobactam Sod 100 ml @ 25 mls/hr Q8H IV 06/18/24 02:00 06/19/24 17:46 25 MLS/HR Sodium Chloride 10 ml Q8HR IV 06/17/24 22:00 06/19/24 21:46 10 ML Docusate Sodium 100 mg BIDPRN PRN PO 06/17/24 17:30 Acetaminophen 650 mg Q6HP PRN PO 06/17/24 17:30 Acetaminophen/ Hydrocodone Bitart 1 tab Q4HP PRN PO 06/17/24 17:30 Ondansetron HCl 4 mg Q4HP PRN IV 06/17/24 17:30 Vancomycin HCl 0 ml @ 0 mls/hr UD IV 06/17/24 19:00 Diagnostic Test (Pha) 1 strip ACHS 06/18/24 07:00 06/19/24 21:46 1 STRIP Insulin Human Regular HS SC 06/18/24 22:00 06/18/24 21:35 3 UNITS Insulin Human Regular AC SC 06/18/24 07:00 06/19/24 18:14 2 UNITS Dextrose 50 ml UD PRN IV 06/18/24 01:45 Hydralazine HCl 10 mg Q6HP PRN IV 06/18/24 18:40 06/18/24 18:52 10 MG Enoxaparin Sodium 40 mg DAILY SC 06/19/24 13:45 06/19/24 16:04 40 MG Vancomycin HCl 250 ml @ 200 mls/hr Q16H IV 06/20/24 03:00 Physical Exam: General:???NAD Neck:???Supple. No masses. HEENT:???PERRL. Normal lids and conjunctiva. Moist mucous membranes. Oropharynx without lesions, exudates, or excessive erythema. Normal appearance of the external aspects of the nose and ears. Heart:???Regular rhythm, normal rate. No murmur. No lower extremity edema. Lungs:???Normal respiratory effort. Clear to auscultation bilaterally. No wheezes. No crackles. Abdomen:???Soft. Non-tender. Non-distended. No masses or abdominal hernia. MSK:???No digital cyanosis. Normal strength and tone in all 4 limbs. Skin:???Warm and dry, no rashes. Notably, the left second toe exhibits black necrosis with surrounding erythema and edema. Neuro:???Alert. No facial droop or slurred speech. Extra-ocular movements intact. Sensation intact to soft touch in all 4 limbs. Psych:???Appropriate mood. Full affect. Oriented to person, place, time, and situation. laboratory and microbiology Laboratory Tests 06/19/24 05:37 Test 06/19/24 05:37 Range/Units Serum Glucose 123 H 74-106 mg/dL Problem List/Assessment/Plan Problems(with codes): (1) Acute osteomyelitis involving lower leg (2) Lower extremity cellulitis (3) Sepsis (4) Elevated troponin (5) Pulmonary vascular congestion (6) Elevated lactic acid level (7) Wound of foot (8) PAD (peripheral artery disease) (9) Osteomyelitis of ankle or foot, left, acute Problem List/Assessment/Plan (1) Sepsis (2) Pulmonary vascular congestion (3) Elevated lactic acid level (4) Wound of foot (5) Elevated troponin (6) Acute osteomyelitis involving lower leg (7) Lower extremity cellulitis (8) PAD (peripheral artery disease) (9) Osteomyelitis of ankle or foot, left, acute Plan/Recommendation ASSESSMENT AND PLAN: ID Problem List: - Recurrent diabetic foot infection - Left second toe necrosis with suspected osteomyelitis - Peripheral arterial disease - History of left great toe amputation - Type 2 diabetes mellitus Assessment: Mr. Carrillo is a 74-year-old male with a past medical history of hypertension, benign prostatic hyperplasia, and type 2 diabetes mellitus. He has a significant history of diabetic foot infections, including a left great toe gangrene with osteomyelitis that necessitated amputation, as well as documented peripheral arterial disease with complete occlusion of the left anterior tibial artery (status post angiography with successful PCTA on 08/10/2023). He initially presented with a one?week history of left big toe infection; however, over the past six months, he has developed black necrosis of the left second toe that is painful and draining, with associated erythema and edema. Imaging studies (toe X?ray and foot MRI) reveal bony changes and abnormal signal intensity within the distal phalanx of the left second toe, findings consistent with osteomyelitis. Recent laboratory evaluations reveal a white blood cell count of 11.8 and a hemoglobin of 14.3; current blood cultures are negative. 2/2: noting that patient is not on any type of arterial anticoagulation, suspect possible non complaints Plan: - agree with beta gigi soaked gauze for dressing necrotic wound - Continue vancomycin and initiate Zosyn. - Recommend Podiatry evaluation for debridement and potential amputation of the necrotic left second toe. - Arrange for a vascular consult with Doppler evaluation to assess peripheral arterial flowparticularly the left anterior tibial artery territory. - Obtain repeat blood cultures and deep tissue cultures (aerobic, anaerobic, fungal, and AFB). - Order hemoglobin A1C to assess diabetic control. - Continue close clinical monitoring for treatment response. Plan discussed with: Other Dietary Evaluation Review Comments: 1. Continue current diet regime 2. Consider adding Ahsan BID (180kcal, 5g pro) Expected Outcomes/Goals: wound healing, PO intake >75% RICHARD PAZ MD Jun 19, 2024 22:46
[2024-06-20] VITALS (11 sets, daily range): BP systolic 96–161; BP diastolic 66–88; PULSE 70–93; RESP 14–27; TEMP 98–98.2; O2SAT 95–98
[2024-06-20] MEDS: VANCOMYCIN 1.25GM/250ML 250 ML IV SCH (02:01)
[2024-06-20 06:10] LABS: Basophils # (auto) 0 10 ^3/uL (0-0.2); Basophils % (auto) 0.6 % (0.0-2.0); Eosinophils # (auto) 0.1 10 ^3/uL (0-0.8); Eosinophils % (auto) 1.5 % (0.0-7.0); Hematocrit 40.3 % (41.0-53.0); Hemoglobin 13.4 g/dL (13.5-17.5); Lymphocytes # (auto) 1.4 10 ^3/uL (0.4-5.4); Lymphocytes % (auto) 20.9 % (10.0-50.0); Mean Corpuscular Hemoglobin 28.9 pg (28.0-32.0); Mean Corpuscular Hgb Conc. 33.2 g/dL (32.0-36.0); Mean Corpuscular Volume 87.2 fL (80.0-100.0); Monocytes # (auto) 0.5 10 ^3/uL (0-1.3); Monocytes % (auto) 7.6 % (0.0-12.0); Neutrophils # (auto) 4.8 10 ^3/uL (1.6-8.6); Neutrophils % (auto) 69.4 % (37.0-80.0); Platelet Count (auto) 384 10^3/uL (140-450); Red Blood Cells 4.63 10^6/uL (4.5-5.90); Red Cell Distribution Width 13.6 % (11.8-14.3); White Blood Cell 6.9 10^3/uL (4.4-10.8)
[2024-06-20 06:47] LABS: Alanine Aminotransferase 15 U/L (7-40); Albumin 4.2 g/dL (3.2-4.8); Alkaline Phosphatase 88 U/L (46-116); Anion Gap 11 (5-15); Aspartate Aminotransferase 18 U/L (13-40); BUN/Creatinine Ratio 15.2 (10.0-20.0); Bilirubin, Total 0.6 mg/dL (0.2-1.0); Blood Urea Nitrogen 14 mg/dL (9-23); Calcium 9.1 mg/dL (8.7-10.4); Chloride 106 mmol/L (98-107); Potassium 3.8 mmol/L (3.5-5.1)
[2024-06-20 06:48] LABS: Carbon Dioxide 19 mmol/L (20-31); Glucose 140 mg/dL (74-106); Sodium 136 mmol/L (136-145)
--- NOTE | 2024-06-20 09:07 | DVH ---
EXAM: XY CHEST XRAY 1 VIEW Indication: Pain Technique: Single frontal view of the chest was obtained Comparison: XY CHEST PORTABLE on DOS: 06/17/24, XY CHEST PORTABLE on DOS: 08/12/23, XY CHEST PORTABLE o n DOS: 08/10/23, CXRP on DOS: 01/30/22, CHEST PORTABLE on DOS: 01/30/22 FINDINGS: Lines and Tubes: None Lungs: No focal consolidation. Low lung volumes. Pleura: No effusion. No pneumothorax. Cardiomediastinal contours: Unremarkable Bones: No acute osseous abnormality. IMPRESSION: No acute cardiopulmonary disease.
--- NOTE | 2024-06-20 12:01 | DVHINCON2 ---
Date Seen: Jun 20, 2024 Reason for Consultation Left 2nd toe wound History of Present Illness 74 year old male presents to the ED with a chief complaint of black LT 2nd toe onset 1 week. Patient states he has a PMHx of DM, HTN, HLD, GERD. He has his bilateral great big toes amputated. He noticed his LT 2nd toe was black, numb for the past 2 weeks. Denies fever, chest pain, shortness of breath, nausea, vomiting, diarrhea. No other symptoms or modifying factors present at this time. Past Medical History See H&P Past Surgical History See H&P Family History: Patient reports no known family medical history. Allergies: Coded Allergies: NO KNOWN ALLERGIES (Unverified , 01/26/22) Home Meds Active Scripts Clindamycin Hcl (CLEOCIN) 150 Mg Cap, 300 MG PO TID for 10 Days, #30 CAP Prov:NIHCOLE NAYLOR 08/19/23 Doxycycline Hyclate (Doxycycline Hyclate) 100 Mg Cap, 100 MG PO BID for 14 Days, #28 CAP Prov:NICHOLE NAYLOR [facility] 08/19/23 Vancomycin HCl (Vancomycin HCl) 1,000 Mg Inj, 1000 MG IV BID for 42 Days, INJ Prov:AUSTIN SHIRLEY RESIDENT 08/13/23 Reported Medications Metformin Hydrochloride (Metformin Hcl) 500 Mg Tab, 1000 MG PO BIDBRS for 30 Days, MG 07/09/22 Tamsulosin Hcl (Tamsulosin Hcl) 0.4 Mg Cap, 0.4 MG PO DAILY for 30 Days, MG 07/09/22 Glipizide (Glipizide) 10 Mg Tab, 20 MG PO BIDAC for 30 Days, MG 07/09/22 Gabapentin (Gabapentin) 300 Mg Cap, 300 MG PO HSPRN for 30 Days, MG 07/09/22 Sacubitril-Valsartan (Entresto 24-26 mg) 1 Tab Tab, 1 TAB PO BID, TAB 07/09/22 Celecoxib (Celebrex) 100 Mg Cap, 200 MG PO DAILYP PRN for MILD PAIN (1-3 PAIN SC SHAISTA) for 30 Days, MG 07/09/22 Atorvastatin Calcium (ATORVASTATIN CALCIUM) 40 Mg Tab, 40 MG PO HS, TAB 07/09/22 Current Medications Current Medications Medications (Trade) Dose Ordered Sig/Nida Route PRN Reason Start Time Stop Time Status Last Admin Enoxaparin Sodium (Lovenox) 40 mg DAILY SC 06/19/24 13:45 06/19/24 16:04 Vancomycin HCl 250 ml @ 200 mls/hr Q16H IV 06/20/24 03:00 06/20/24 02:01 Vital Signs Vital Signs Date Time Temp Pulse Resp B/P (MAP) Pulse Ox O2 Delivery O2 Flow Rate FiO2 06/20/24 09:00 98.0 74 15 96/66 (76) 98 98.0 06/20/24 08:00 Room Air* 0 21 Physical Exam DERMATOLOGIC EXAM: - Skin is dry and cool to the touch dry bilaterally. - Nails 1-5 of the bilateral foot are thickened, discolored, dystrophic, and tender to palpate with subungual debris - Hair loss noted to bilateral feet Wound #1: Location: Left 2nd toe Measurements: Length 1 cm x width 1 cm x depth 0.5 cm. Wound margins: Hyperkeratotic. Wound base: Full thickness. General Appearance: Necrotic Probes to Bone: No Purulent drainage: No Serous drainage: No Erythema: Cellulitis VASCULAR EXAM: - DP and PT pulses are palpable bilaterally. - STEM CRUSHER is brisk to all digits. - Feet are cool to touch compared to lower legs bilaterally. NEUROLOGIC EXAM: - Normal light touch sensation to the superficial peroneal, deep peroneal, sural, saphenous, and tibial nerve branches. - Protective sensation is diminished as tested with a 5.07 10g O'Brien-Ailin bilaterally. MUSCULOSKELETAL EXAM: - No gross deformities - Muscle strength is 5/5 and active motion is pain-free and symmetrical bilaterally - No pain or crepitation with passive range of motion bilaterally to all major pedal joints Labs/Diagnostic Data Labs Test 06/20/24 11:30 06/20/24 11:22 06/20/24 05:28 06/17/24 11:59 Range/Units POC Glucose 133 H 70-106 mg/dl White Blood Count 6.9 4.4-10.8 10^3/uL Red Blood Count 4.63 4.5-5.90 10^6/uL Hemoglobin 13.4 L 13.5-17.5 g/dL Hematocrit 40.3 L 41.0-53.0 % Mean Corpuscular Volume 87.2 80.0-100.0 fL Mean Corpuscular Hemoglobin 28.9 28.0-32.0 pg Mean Corpuscular Hemoglobin Concent 33.2 32.0-36.0 g/dL Red Cell Distribution Width 13.6 11.8-14.3 % Platelet Count 384 140-450 10^3/uL Mean Platelet Volume 7.1 6.9-10.8 fL Neutrophils (%) (Auto) 69.4 37.0-80.0 % Lymphocytes (%) (Auto) 20.9 10.0-50.0 % Monocytes (%) (Auto) 7.6 0.0-12.0 % Eosinophils (%) (Auto) 1.5 0.0-7.0 % Basophils (%) (Auto) 0.6 0.0-2.0 % Neutrophils # (Auto) 4.8 1.6-8.6 10 ^3/uL Lymphocytes # (Auto) 1.4 0.4-5.4 10 ^3/uL Monocytes # (Auto) 0.5 0-1.3 10 ^3/uL Eosinophils # (Auto) 0.1 0-0.8 10 ^3/uL Basophils # (Auto) 0 0-0.2 10 ^3/uL Nucleated Red Blood Cells 0.0 % Sodium Level 136 136-145 mmol/L Potassium Level 3.8 3.5-5.1 mmol/L Chloride Level 106 98-107 mmol/L Carbon Dioxide Level 19 L 20-31 mmol/L Anion Gap 11 5-15 Blood Urea Nitrogen 14 9-23 mg/dL Creatinine 0.92 0.700-1.30 mg/dL Glomerular Filtration Rate Calc 86 >90 mL/min BUN/Creatinine Ratio 15.2 10.0-20.0 Serum Glucose 140 H 74-106 mg/dL Calcium Level 9.1 8.7-10.4 mg/dL Total Bilirubin 0.6 0.2-1.0 mg/dL Aspartate Amino Transferase (AST) 18 13-40 U/L Alanine Aminotransferase (ALT) 15 7-40 U/L Alkaline Phosphatase 88 46-116 U/L Total Protein 7.0 5.7-8.2 g/dL Albumin 4.2 3.2-4.8 g/dL Influenza Type A Antigen Negative Negative Influenza Type B Antigen Negative Negative Test 06/17/24 10:30 Range/Units Erythrocyte Sedimentation Rate 63 H 0-20 mm/hr D-Dimer, Quantitative 0.69 H 0.0-0.49 mg/L FEU Magnesium Level 1.8 1.6-2.6 mg/dL Troponin I High Sensitivity 13 </=54 ng/L C-Reactive Protein High Sensitivity 4.06 H <1.0 mg/dL B-Type Natriuretic Peptide 72.45 0-100 pg/mL Microbiology Date/Time Source Procedure Growth Status 06/17/24 12:49 Blood Blood Culture - Preliminary NO GROWTH AFTER 48 HOURS OF INCUBATION. Resulted 06/17/24 11:20 Toe Gram Stain - Final Resulted 06/17/24 11:20 Toe Wound Culture - Preliminary Resulted Problems(with codes): (1) Acute osteomyelitis involving lower leg (2) Lower extremity cellulitis (3) Sepsis (4) Elevated troponin (5) Pulmonary vascular congestion (6) Elevated lactic acid level (7) Wound of foot (8) PAD (peripheral artery disease) (9) Osteomyelitis of ankle or foot, left, acute Plan/Recommendation ASSESSMENT: Patient is a 74 year old seen on the floor for a worsening ulcer and left 2nd toe gangrene PLAN: - The patients chart was reviewed, clinical findings were discussed with the patient, the etiologies of the conditions were discussed in detail, and a treatment plan was agreed to at this time, with both oral and written instructions provided. - reviewed advanced imaging - discussed plan is to perform an incision and drainage with partial amputation - patient will be NPO since midnight - take him to the OR today - we will get cultures in the OR - can weightbear as tolerated in postoperative shoe All questions were answered and concerns addressed to the patient's satisfaction. The patient was given the phone number to the clinic and was told how to make contact with the clinic should any concerns or questions arise. Patient understands that if any questions or concerns arise prior to the next appointment, we should be contacted immediately. FOLLOW-UP: Continue to follow while inpatient Plan discussed with: Patient Date of Service: Jun 20, 2024 Billing Provider: RANDEE PENA DPM Common Visit Codes: CONSULT ONLY Consultation Codes: [id number] CONSULT <80MIN RANDEE PENA DPM Jun 20, 2024 12:01
[2024-06-20 12:24] LABS: INR 1.03 (0.9-1.15); Partial Thromboplastin Time 31.3 SEC (24.5-34.5); Prothrombin Time 10.9 sec (9.3-11.8)
[2024-06-20] MEDS ORDERED: fentaNYL CITRATE 100 MCG/2 ML VL ONE (13:19)
[2024-06-20] MEDS: BUPIVACAINE 0.5% P/F INJ 10 ML VIAL ONE (13:21)
[2024-06-20] MEDS ORDERED: MIDAZOLAM HCL 2MG/2ML 2ml VIAL (1mg/ml) ONE (13:21)
--- NOTE | 2024-06-20 13:47 | DVHOP2 ---
Operative Report - 2 Report Details Date: 06/20/24 Preop Diagnosis: 1. Left foot osteomyelitis 2. Left foot gangrene 3. Left foot cellulitis Postop Diagnosis: Same as preop Surgeon: Randee Pena MD Anesthesiologist: See anesthesia Anesthesia: Mac Consent: The patient was informed of the risks and benefits of the procedure. These include but are not limited to complications of anesthesia, postoperative infection, incomplete relief of symptoms, recurrence of symptoms, damage to blood vessels, nerves and tendons, deep venous thrombosis, pulmonary embolism and possible need for repeat surgery in the future. Complications: None Estimated Blood Loss: Minimal Fluids: See anesthesia Findings: Consistent with diagnosis Indications for Surgery: Worsening left foot wound Name of Procedure Performed 1. Left foot I&D to bone (70968) 2. Left foot partial 2nd toe amputation (41400) 3. Left foot 2nd toe bone biopsy () 4. Left foot rotational skin flap for closure (36959) 5. Left foot delayed closure (07064) Procedure Details Procedure Details: PRE-PROCEDURE INFORMATION: In the pre-op holding area, the extremity to be operated on was clearly marked and the patient verified correct laterality of the marking. The patient was transferred to the OR table and placed in a supine position. A timeout was performed in which identification of the correct patient, procedure, location, and materials was done. The left foot and leg were prepped and draped in normal sterile fashion. DESCRIPTION OF PROCEDURE: Attention was directed to the left where area of fluctuance was noted. An incision was made over this area and was deepened through blunt dissection. The incision was deepened to the level of abscess and bone. Care was taken to the dissection to avoid any neurovascular and tendinous structures. The incision was deepened to the bone, and the abscess appeared to be purulent fluid consistent with pus. The cortices of the bone was then removed with rongeur an all necrotic tissue. After the abscess was drained, the area was irrigated with 3 L normal saline using cysto tubing. Deep cultures were then obtained from the wound. There was a site of the point that the 2nd toe was nonsalvageable and an amputation was performed at the IPJ with a 15. Blade. A bone biopsy was then taken of the 2nd distal phalanx which was deepened to the muscle belly and tendons. The bone was then sent to pathology to determine the extent of osteomyelitis. The area was then inspected and any areas of tracking, especially along the tendons were also drained. A delayed closure was then performed using 2-0 nylon after was deemed appropriate with no longer concern for infection. All surgical wounds were irrigated copiously with saline and closed in layers with the aforementioned suture material. A dry sterile dressing was placed on the surgical extremity. The patient was placed in a _ POSTOPERATIVE INFORMATION: The patient tolerated the above noted procedure and anesthesia well and was transferred to the PACU with vital signs stable, and vascular status intact with capillary refill intact to all digits. Patient can return to the floor. Deep cultures were obtained. Patient can be discharged home on p.o. antibiotics with a postop shoe. Specimen: Left 2nd toe Condition Good Disposition Still a Patient RANDEE PENA DPM Jun 20, 2024 13:47
[2024-06-20] MEDS ORDERED: PROPOFOL 10 MG/ML 20 ML IV ONE (14:02)
--- NOTE | 2024-06-20 14:54 | DVH ---
Bilateral Lower Extremity Arterial Duplex Clinical History: Peripheral vascular disease. Comparison: US LOW EXT ART DUPLEX on DOS: 08/06/23 Technique: Duplex Doppler evaluation including color Doppler and spectral/pulsed waveform analysis of the lower extremity arteries was performed. Findings: RIGHT: Peak systolic velocities are < 150 centimeter/second. The waveforms are monophasic in the dorsalis pedis. LEFT: Peak systolic velocities are less than 150 centimeter/second. Nonvisualization of the left dorsalis pedis artery. The waveforms are biphasic. IMPRESSION: No hemodynamically significant stenosis based on peak systolic velocity criteria. Left dorsalis pedis artery is not visualized secondary to overlying bandages. Monophasic arterial waveforms in the right dorsalis pedis artery may represent underlying peripheral arterial disease. REFERENCE VALUES, [facility] ([facility]) vascular Imaging Lab Criteria: Peak systolic velocity ranges (in cm/sec) are as follows: <150 cm/s - <20 % stenosis 150-200 cm/s - 20-49% stenosis 200-300 cm/s - 50-75% stenosis >300 cm/s -> 75% stenosis
--- NOTE | 2024-06-20 16:48 | DVHPN2 ---
Subjective Patient denies any foot pain, patient was status post left foot surgery. Reviewed: Care Plan Changes from previous H/P or p: No Changes Objective Vitals Vital Signs Date Time Temp Pulse Resp B/P (MAP) Pulse Ox O2 Delivery O2 Flow Rate FiO2 06/20/24 14:14 98.0 91 16 143/77 (99) 98 98.0 06/20/24 13:45 Room Air 0 06/20/24 13:45 95 Intake/Output Intake and Output 06/20/24 07:00 Intake Total 590 ml Output Total 600 ml Balance -10 ml Intake Oral 240 ml IV Total 350 ml Output Urine Total 600 ml # Voids 2 Exam HEENT pupils are reactive Neck is supple CVS S1-S2 regular rate and rhythm Respiratory back clear GI positive bowel sound Extremity no pedal edema ELDERLY COMPANION no motor deficit Medications Current Medications Medications Dose Ordered Sig/Nida Route Start Time Stop Time Status Last Admin Dose Admin Piperacillin Sod/ Tazobactam Sod 100 ml @ 25 mls/hr Q8H IV 06/18/24 02:00 06/20/24 09:36 25 MLS/HR Sodium Chloride 10 ml Q8HR IV 06/17/24 22:00 06/20/24 14:17 10 ML Docusate Sodium 100 mg BIDPRN PRN PO 06/17/24 17:30 Acetaminophen 650 mg Q6HP PRN PO 06/17/24 17:30 Acetaminophen/ Hydrocodone Bitart 1 tab Q4HP PRN PO 06/17/24 17:30 Ondansetron HCl 4 mg Q4HP PRN IV 06/17/24 17:30 Vancomycin HCl 0 ml @ 0 mls/hr UD IV 06/17/24 19:00 Diagnostic Test (Pha) 1 strip ACHS 06/18/24 07:00 06/20/24 11:57 1 STRIP Insulin Human Regular HS SC 06/18/24 22:00 06/18/24 21:35 3 UNITS Insulin Human Regular AC SC 06/18/24 07:00 06/19/24 18:14 2 UNITS Dextrose 50 ml UD PRN IV 06/18/24 01:45 Hydralazine HCl 10 mg Q6HP PRN IV 06/18/24 18:40 06/18/24 18:52 10 MG Enoxaparin Sodium 40 mg DAILY SC 06/19/24 13:45 06/19/24 16:04 40 MG Vancomycin HCl 250 ml @ 200 mls/hr Q16H IV 06/20/24 03:00 06/20/24 02:01 200 MLS/HR Laboratory Results Laboratory Tests 06/20/24 05:28 Chemistry Test 06/20/24 05:28 Albumin 4.2 g/dL (3.2-4.8) Calcium Level 9.1 mg/dL (8.7-10.4) Total Protein 7.0 g/dL (5.7-8.2) Coagulation Test 06/20/24 11:30 Prothrombin Time 10.9 sec (9.3-11.8) Prothrombin Time INR 1.03 (0.9-1.15) Activated Partial Thromboplast Time 31.3 SEC (24.5-34.5) LFT Test 06/20/24 05:28 Alanine Aminotransferase (ALT) 15 U/L (7-40) Alkaline Phosphatase 88 U/L (46-116) Aspartate Amino Transferase (AST) 18 U/L (13-40) Total Bilirubin 0.6 mg/dL (0.2-1.0) Microbiology Microbiology Date/Time Source Procedure Growth Status 06/17/24 12:49 Blood Blood Culture - Preliminary NO GROWTH AFTER 72 HOURS OF INCUBATION. Resulted 06/17/24 11:20 Toe Gram Stain - Final Resulted 06/17/24 11:20 Toe Wound Culture - Preliminary Resulted Assessment/Plan Assessment/Plan 74-year-old male with known history of diabetes mellitus type 2 hypertension, dyslipidemia, previous history of bilateral foot surgery presented to the hospital with left 2nd toe blackening for last one week found to have 1. Acute osteomyelitis of the left foot. Status post left foot I and D to the bone, left foot partial 2nd toe amputation, left foot skin flap closure, left foot delayed closure, postop day 0 2. Diabetes mellitus type 2 3. Hypertension 4. Dyslipidemia -IV antibiotics, podiatry follow up-, Infectious Disease recommendations -Patient was may need IV antibiotics, Plan discussed with: Patient My Orders Orders - THELMA REDD MD Procedure Category Date Status Time Consult CONS 06/20/24 Transmitted Vascular/Endovascular 14:03 Bilat Low Ext Art US 06/20/24 Resulted Duplex 14:04 Date of Service: Jun 20, 2024 Billing Provider: THELMA REDD MD Common Visit Codes: [id number] INP/OBS CARE(MOD) THELMA REDD MD Jun 20, 2024 16:48
--- NOTE | 2024-06-20 22:49 | DVHPN2 ---
Consult Progress Note Date Seen: Jun 20, 2024 Subjective Patient reports: Other (sleeping comfotably , amputation site is clean with some bloody drainage and new flap in place ) Objective vital signs Vital Sign Date Time Temp Pulse Resp B/P (MAP) Pulse Ox O2 Delivery O2 Flow Rate FiO2 06/20/24 21:00 98.1 80 17 153/81 (105) 95 98.1 06/20/24 13:45 Room Air 0 06/20/24 13:45 95 Total Intake and Output 06/19/24 06/19/24 06/20/24 15:00 23:00 07:00 Intake Total 350 ml 240 ml 0 ml Output Total 600 ml Balance 350 ml -360 ml 0 ml medications Current Medications Medications Dose Ordered Sig/Nida Route Start Time Stop Time Status Last Admin Dose Admin Piperacillin Sod/ Tazobactam Sod 100 ml @ 25 mls/hr Q8H IV 06/18/24 02:00 06/20/24 18:01 25 MLS/HR Sodium Chloride 10 ml Q8HR IV 06/17/24 22:00 06/20/24 22:02 10 ML Docusate Sodium 100 mg BIDPRN PRN PO 06/17/24 17:30 Acetaminophen 650 mg Q6HP PRN PO 06/17/24 17:30 Acetaminophen/ Hydrocodone Bitart 1 tab Q4HP PRN PO 06/17/24 17:30 Ondansetron HCl 4 mg Q4HP PRN IV 06/17/24 17:30 Vancomycin HCl 0 ml @ 0 mls/hr UD IV 06/17/24 19:00 Diagnostic Test (Pha) 1 strip ACHS 06/18/24 07:00 06/20/24 22:03 1 STRIP Insulin Human Regular HS SC 06/18/24 22:00 06/20/24 22:05 3 UNITS Insulin Human Regular AC SC 06/18/24 07:00 06/19/24 18:14 2 UNITS Dextrose 50 ml UD PRN IV 06/18/24 01:45 Hydralazine HCl 10 mg Q6HP PRN IV 06/18/24 18:40 06/18/24 18:52 10 MG Enoxaparin Sodium 40 mg DAILY SC 06/19/24 13:45 06/19/24 16:04 40 MG Vancomycin HCl 250 ml @ 200 mls/hr Q16H IV 06/20/24 03:00 06/20/24 19:28 200 MLS/HR Physical Exam: General:???NAD Neck:???Supple. No masses. HEENT:???PERRL. Normal lids and conjunctiva. Moist mucous membranes. Oropharynx without lesions, exudates, or excessive erythema. Normal appearance of the external aspects of the nose and ears. Heart:???Regular rhythm, normal rate. No murmur. No lower extremity edema. Lungs:???Normal respiratory effort. Clear to auscultation bilaterally. No wheezes. No crackles. Abdomen:???Soft. Non-tender. Non-distended. No masses or abdominal hernia. MSK:???No digital cyanosis. Normal strength and tone in all 4 limbs. Skin:???Warm and dry, no rashes. Notably, the left second toe exhibits black necrosis with surrounding erythema and edema. Neuro:???Alert. No facial droop or slurred speech. Extra-ocular movements intact. Sensation intact to soft touch in all 4 limbs. Psych:???Appropriate mood. Full affect. Oriented to person, place, time, and situation. laboratory and microbiology Laboratory Tests 06/20/24 05:28 Test 06/20/24 05:28 Range/Units Serum Glucose 140 H 74-106 mg/dL Problem List/Assessment/Plan Problems(with codes): (1) Acute osteomyelitis involving lower leg (2) Lower extremity cellulitis (3) Sepsis (4) Elevated troponin (5) Pulmonary vascular congestion (6) Elevated lactic acid level (7) Wound of foot (8) PAD (peripheral artery disease) (9) Osteomyelitis of ankle or foot, left, acute Problem List/Assessment/Plan (1) Sepsis (2) Pulmonary vascular congestion (3) Elevated lactic acid level (4) Wound of foot (5) Elevated troponin (6) Acute osteomyelitis involving lower leg (7) Lower extremity cellulitis (8) PAD (peripheral artery disease) (9) Osteomyelitis of ankle or foot, left, acute Plan/Recommendation ASSESSMENT AND PLAN: ID Problem List: - Recurrent diabetic foot infection - Left second toe necrosis with suspected osteomyelitis - Peripheral arterial disease - History of left great toe amputation - Type 2 diabetes mellitus Assessment: Mr. Carrillo is a 74-year-old male with a past medical history of hypertension, benign prostatic hyperplasia, and type 2 diabetes mellitus. He has a significant history of diabetic foot infections, including a left great toe gangrene with osteomyelitis that necessitated amputation, as well as documented peripheral arterial disease with complete occlusion of the left anterior tibial artery (status post angiography with successful PCTA on 08/10/2023). He initially presented with a one?week history of left big toe infection; however, over the past six months, he has developed black necrosis of the left second toe that is painful and draining, with associated erythema and edema. Imaging studies (toe X?ray and foot MRI) reveal bony changes and abnormal signal intensity within the distal phalanx of the left second toe, findings consistent with osteomyelitis. Recent laboratory evaluations reveal a white blood cell count of 11.8 and a hemoglobin of 14.3; current blood cultures are negative. 2/2: noting that patient is not on any type of arterial anticoagulation, suspect possible non complaints 2: whitecount is 6.9 , operative note suggest that patient had to get amputation due to unsalvageable bone infection per fluid necrosis seen during operation and cultures were acquired as well as pathology Plan: - follow up on operative cultures and pathology - recommend piccline placement for 6 weeks antibiotics - agree with beta gigi soaked gauze for dressing necrotic wound - Continue vancomycin and initiate Zosyn. - Recommend Podiatry evaluation for debridement and potential amputation of the necrotic left second toe. - Arrange for a vascular consult with Doppler evaluation to assess peripheral arterial flowparticularly the left anterior tibial artery territory. - Obtain repeat blood cultures and deep tissue cultures (aerobic, anaerobic, fungal, and AFB). - Order hemoglobin A1C to assess diabetic control. - Continue close clinical monitoring for treatment response. Plan discussed with: Other Dietary Evaluation Review Comments: 1. Continue current diet regime 2. Consider adding Ahsan BID (180kcal, 5g pro) Expected Outcomes/Goals: wound healing, PO intake >75% RICHARD PAZ MD Jun 20, 2024 22:49
[2024-06-21] VITALS (9 sets, daily range): BP systolic 139–167; BP diastolic 71–80; PULSE 68–79; RESP 16–17; TEMP 97.7–98.4; O2SAT 94–97
[2024-06-21 07:24] LABS: Basophils # (auto) 0.1 10 ^3/uL (0-0.2); Basophils % (auto) 0.9 % (0.0-2.0); Eosinophils # (auto) 0.1 10 ^3/uL (0-0.8); Eosinophils % (auto) 1.4 % (0.0-7.0); Hematocrit 38.9 % (41.0-53.0); Hemoglobin 13.3 g/dL (13.5-17.5); Lymphocytes # (auto) 1.1 10 ^3/uL (0.4-5.4); Lymphocytes % (auto) 17.5 % (10.0-50.0); Mean Corpuscular Hemoglobin 29.4 pg (28.0-32.0); Mean Corpuscular Hgb Conc. 34.3 g/dL (32.0-36.0); Mean Corpuscular Volume 85.8 fL (80.0-100.0); Monocytes # (auto) 0.5 10 ^3/uL (0-1.3); Monocytes % (auto) 7.7 % (0.0-12.0); Neutrophils # (auto) 4.6 10 ^3/uL (1.6-8.6); Neutrophils % (auto) 72.5 % (37.0-80.0); Nucleated Red Blood Cells % 0.1 %; Platelet Count (auto) 396 10^3/uL (140-450); Red Blood Cells 4.53 10^6/uL (4.5-5.90); Red Cell Distribution Width 13.4 % (11.8-14.3); White Blood Cell 6.4 10^3/uL (4.4-10.8)
[2024-06-21 07:45] LABS: Alanine Aminotransferase 22 U/L (7-40); Alkaline Phosphatase 84 U/L (46-116); Anion Gap 11 (5-15); BUN/Creatinine Ratio 18.3 (10.0-20.0); Blood Urea Nitrogen 15 mg/dL (9-23); Calcium 8.9 mg/dL (8.7-10.4); Carbon Dioxide 21 mmol/L (20-31); Chloride 106 mmol/L (98-107); Potassium 3.6 mmol/L (3.5-5.1); Sodium 138 mmol/L (136-145)
[2024-06-21 07:47] LABS: Albumin 3.8 g/dL (3.2-4.8); Aspartate Aminotransferase 20 U/L (13-40); Bilirubin, Total 0.5 mg/dL (0.2-1.0); Total Protein 6.8 g/dL (5.7-8.2)
[2024-06-21 07:50] LABS: Glucose 118 mg/dL (74-106)
--- NOTE | 2024-06-21 13:42 | DVHPN2 ---
Subjective 74 year old male presents to the ED with a chief complaint of black LT 2nd toe onset 1 week. Patient states he has a PMHx of DM, HTN, HLD, GERD. He has his bilateral great big toes amputated. He noticed his LT 2nd toe was black, numb for the past 2 weeks. Denies fever, chest pain, shortness of breath, nausea, vomiting, diarrhea. No other symptoms or modifying factors present at this time. Reviewed: Care Plan Changes from previous H/P or p: No Changes Objective Vitals Vital Signs Date Time Temp Pulse Resp B/P (MAP) Pulse Ox O2 Delivery O2 Flow Rate FiO2 06/21/24 12:40 98.1 69 17 152/71 (98) 97 98.1 06/21/24 08:53 Room Air* 0 21 Intake/Output Intake and Output 06/21/24 07:00 Intake Total 510 ml Balance 510 ml Intake Oral 150 ml IV Total 360 ml # Voids 3 Exam DERMATOLOGIC EXAM: - Skin is dry and cool to the touch dry bilaterally. - Nails 1-5 of the bilateral foot are thickened, discolored, dystrophic, and tender to palpate with subungual debris - Hair loss noted to bilateral feet Wound #1: Location: Left 2nd toe Measurements: Length 1 cm x width 1 cm x depth 0.5 cm. Wound margins: Hyperkeratotic. Wound base: Full thickness. General Appearance: Necrotic Probes to Bone: No Purulent drainage: No Serous drainage: No Erythema: Cellulitis VASCULAR EXAM: - DP and PT pulses are palpable bilaterally. 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 - Feet are cool to touch compared to lower legs bilaterally. NEUROLOGIC EXAM: - Normal light touch sensation to the superficial peroneal, deep peroneal, sural, saphenous, and tibial nerve branches. - Protective sensation is diminished as tested with a 5.07 10g [place] bilaterally. MUSCULOSKELETAL EXAM: - No gross deformities - Muscle strength is 5/5 and active motion is pain-free and symmetrical bilaterally - No pain or crepitation with passive range of motion bilaterally to all major pedal joints Medications Current Medications Medications Dose Ordered Sig/Nida Route Start Time Stop Time Status Last Admin Dose Admin Piperacillin Sod/ Tazobactam Sod 100 ml @ 25 mls/hr Q8H IV 06/18/24 02:00 06/21/24 09:24 25 MLS/HR Sodium Chloride 10 ml Q8HR IV 06/17/24 22:00 06/21/24 06:07 10 ML Docusate Sodium 100 mg BIDPRN PRN PO 06/17/24 17:30 Acetaminophen 650 mg Q6HP PRN PO 06/17/24 17:30 Acetaminophen/ Hydrocodone Bitart 1 tab Q4HP PRN PO 06/17/24 17:30 Ondansetron HCl 4 mg Q4HP PRN IV 06/17/24 17:30 Vancomycin HCl 0 ml @ 0 mls/hr UD IV 06/17/24 19:00 Diagnostic Test (Pha) 1 strip ACHS 06/18/24 07:00 06/21/24 11:55 1 STRIP Insulin Human Regular HS SC 06/18/24 22:00 06/20/24 22:05 3 UNITS Insulin Human Regular AC SC 06/18/24 07:00 06/19/24 18:14 2 UNITS Dextrose 50 ml UD PRN IV 06/18/24 01:45 Hydralazine HCl 10 mg Q6HP PRN IV 06/18/24 18:40 06/18/24 18:52 10 MG Enoxaparin Sodium 40 mg DAILY SC 06/19/24 13:45 06/21/24 09:25 40 MG Vancomycin HCl 250 ml @ 200 mls/hr Q16H IV 06/20/24 03:00 06/21/24 12:40 200 MLS/HR Laboratory Results Laboratory Tests 06/21/24 06:15 Chemistry Test 06/21/24 06:15 Albumin 3.8 g/dL (3.2-4.8) Calcium Level 8.9 mg/dL (8.7-10.4) Total Protein 6.8 g/dL (5.7-8.2) LFT Test 06/21/24 06:15 Alanine Aminotransferase (ALT) 22 U/L (7-40) Alkaline Phosphatase 84 U/L (46-116) Aspartate Amino Transferase (AST) 20 U/L (13-40) Total Bilirubin 0.5 mg/dL (0.2-1.0) HgA1c, TSH Test 06/21/24 06:15 Hemoglobin A1c 8.7 % A1C (<5.7) H Microbiology Microbiology Date/Time Source Procedure Growth Status 06/20/24 13:30 Foot Left Gram Stain Pending Resulted 06/20/24 13:30 Foot Left Anaerobic Culture - Preliminary Resulted 06/20/24 13:30 Foot Left Aerobic Culture Pending Resulted 06/17/24 12:49 Blood Blood Culture - Preliminary NO GROWTH AFTER 72 HOURS OF INCUBATION. Resulted Assessment/Plan Assessment/Plan ASSESSMENT: Patient is a 74 year old seen on the floor follow up s/p foot I&D PLAN: - The patients chart was reviewed, clinical findings were discussed with the patient, the etiologies of the conditions were discussed in detail, and a treatment plan was agreed to at this time, with both oral and written instructions provided. - reviewed advanced imaging - reviewed all of the labs and pathology - determined that patient does not need another surgery at this point - recommend that patient gets sent home on 2 weeks of p.o. antibiotics - patient to leave dressings intact until 1st postop visit - patient will follow up me in approximately 1 week All questions were answered and concerns addressed to the patient's satisfaction. The patient was given the phone number to the clinic and was told how to make contact with the clinic should any concerns or questions arise. Patient understands that if any questions or concerns arise prior to the next appointment, we should be contacted immediately. FOLLOW-UP: Continue to follow while inpatient Plan discussed with: Patient My Orders Orders - RANDEE PENA DPM Procedure Category Date Status Time Consistent DIET 06/20/24 Transmitted Carb(Ccho)Diabetes Dinner Problem List: (1) Acute osteomyelitis involving lower leg (2) Lower extremity cellulitis (3) Sepsis (4) Elevated troponin (5) Pulmonary vascular congestion (6) Elevated lactic acid level (7) Wound of foot (8) PAD (peripheral artery disease) (9) Osteomyelitis of ankle or foot, left, acute Date of Service: Jun 21, 2024 Billing Provider: RANDEE PENA DPM Common Visit Codes: [id number] INP/OBS CARE(MOD) RANDEE PENA DPM Jun 21, 2024 13:42
--- NOTE | 2024-06-21 17:18 | DVHPN2 ---
Subjective Patient denies any foot pain, patient was status post left foot I and D, postop day one Reviewed: Care Plan Changes from previous H/P or p: No Changes Objective Vitals Vital Signs Date Time Temp Pulse Resp B/P (MAP) Pulse Ox O2 Delivery O2 Flow Rate FiO2 06/21/24 17:00 97.7 68 17 151/77 (101) 96 97.7 06/21/24 08:53 Room Air* 0 21 Intake/Output Intake and Output 06/21/24 07:00 Intake Total 510 ml Balance 510 ml Intake Oral 150 ml IV Total 360 ml # Voids 3 Exam HEENT pupils are reactive Neck is supple CVS S1-S2 regular rate and rhythm Respiratory back clear GI positive bowel sound Extremity no pedal edema 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 Medications Current Medications Medications Dose Ordered Sig/Nida Route Start Time Stop Time Status Last Admin Dose Admin Piperacillin Sod/ Tazobactam Sod 100 ml @ 25 mls/hr Q8H IV 06/18/24 02:00 06/21/24 09:24 25 MLS/HR Sodium Chloride 10 ml Q8HR IV 06/17/24 22:00 06/21/24 06:07 10 ML Docusate Sodium 100 mg BIDPRN PRN PO 06/17/24 17:30 Acetaminophen 650 mg Q6HP PRN PO 06/17/24 17:30 Acetaminophen/ Hydrocodone Bitart 1 tab Q4HP PRN PO 06/17/24 17:30 Ondansetron HCl 4 mg Q4HP PRN IV 06/17/24 17:30 Vancomycin HCl 0 ml @ 0 mls/hr UD IV 06/17/24 19:00 Diagnostic Test (Pha) 1 strip ACHS 06/18/24 07:00 06/21/24 11:55 1 STRIP Insulin Human Regular HS SC 06/18/24 22:00 06/20/24 22:05 3 UNITS Insulin Human Regular AC SC 06/18/24 07:00 06/19/24 18:14 2 UNITS Dextrose 50 ml UD PRN IV 06/18/24 01:45 Hydralazine HCl 10 mg Q6HP PRN IV 06/18/24 18:40 06/18/24 18:52 10 MG Enoxaparin Sodium 40 mg DAILY SC 06/19/24 13:45 06/21/24 09:25 40 MG Vancomycin HCl 250 ml @ 200 mls/hr Q14H IV 06/22/24 01:00 UNV Laboratory Results Laboratory Tests 06/21/24 06:15 Chemistry Test 06/21/24 06:15 Albumin 3.8 g/dL (3.2-4.8) Calcium Level 8.9 mg/dL (8.7-10.4) Total Protein 6.8 g/dL (5.7-8.2) LFT Test 06/21/24 06:15 Alanine Aminotransferase (ALT) 22 U/L (7-40) Alkaline Phosphatase 84 U/L (46-116) Aspartate Amino Transferase (AST) 20 U/L (13-40) Total Bilirubin 0.5 mg/dL (0.2-1.0) HgA1c, TSH Test 06/21/24 06:15 Hemoglobin A1c 8.7 % A1C (<5.7) H Microbiology Microbiology Date/Time Source Procedure Growth Status 06/20/24 13:30 Foot Left Gram Stain - Final Resulted 06/20/24 13:30 Foot Left Anaerobic Culture - Preliminary Resulted 06/20/24 13:30 Foot Left Aerobic Culture - Preliminary Resulted 06/17/24 12:49 Blood Blood Culture - Preliminary NO GROWTH AFTER 72 HOURS OF INCUBATION. Resulted Assessment/Plan Assessment/Plan 74-year-old male with known history of diabetes mellitus type 2 hypertension, dyslipidemia, previous history of bilateral foot surgery presented to the hospital with left 2nd toe blackening for last one week found to have 1. Acute osteomyelitis of the left foot. Status post left foot I and D to the bone, left foot partial 2nd toe amputation, left foot skin flap closure, left foot delayed closure, postop day 1 2. Diabetes mellitus type 2 3. Hypertension 4. Dyslipidemia -IV antibiotics, podiatry follow up-, Infectious Disease recommendations -PICC line placement, arrange IV antibiotics. Plan discussed with: Patient Date of Service: Jun 21, 2024 Billing Provider: THELMA REDD MD Common Visit Codes: [id number] INP/OBS CARE(MOD) THELMA REDD MD Jun 21, 2024 17:18
[2024-06-22] VITALS (7 sets, daily range): BP systolic 125–167; BP diastolic 68–81; PULSE 55–82; RESP 16–19; TEMP 36.8; O2SAT 93–97
[2024-06-22] MEDS: VANCOMYCIN 1.25GM/250ML 250 ML IV SCH (01:07)
[2024-06-22 06:01] LABS: Basophils # (auto) 0 10 ^3/uL (0-0.2); Basophils % (auto) 0.8 % (0.0-2.0); Eosinophils # (auto) 0.1 10 ^3/uL (0-0.8); Eosinophils % (auto) 1.9 % (0.0-7.0); Hematocrit 39.9 % (41.0-53.0); Hemoglobin 13.5 g/dL (13.5-17.5); Lymphocytes # (auto) 1.1 10 ^3/uL (0.4-5.4); Lymphocytes % (auto) 21.1 % (10.0-50.0); Mean Corpuscular Hgb Conc. 33.9 g/dL (32.0-36.0); Mean Corpuscular Volume 85.5 fL (80.0-100.0); Monocytes # (auto) 0.4 10 ^3/uL (0-1.3); Monocytes % (auto) 8.3 % (0.0-12.0); Neutrophils # (auto) 3.6 10 ^3/uL (1.6-8.6); Neutrophils % (auto) 67.9 % (37.0-80.0); Platelet Count (auto) 406 10^3/uL (140-450); Red Blood Cells 4.66 10^6/uL (4.5-5.90); Red Cell Distribution Width 13.5 % (11.8-14.3); White Blood Cell 5.3 10^3/uL (4.4-10.8)
[2024-06-22 06:22] LABS: Alanine Aminotransferase 37 U/L (7-40); Albumin 4.1 g/dL (3.2-4.8); Alkaline Phosphatase 85 U/L (46-116); Anion Gap 11 (5-15); Aspartate Aminotransferase 37 U/L (13-40); BUN/Creatinine Ratio 14.6 (10.0-20.0); Bilirubin, Total 0.5 mg/dL (0.2-1.0); Blood Urea Nitrogen 13 mg/dL (9-23); Calcium 8.9 mg/dL (8.7-10.4); Potassium 3.6 mmol/L (3.5-5.1); Sodium 139 mmol/L (136-145); Total Protein 6.8 g/dL (5.7-8.2)
[2024-06-22 06:25] LABS: Carbon Dioxide 20 mmol/L (20-31); Chloride 108 mmol/L (98-107); Glucose 122 mg/dL (74-106)
[2024-06-22] MEDS: LIDOCAINE 1% (LOCAL ANESTH.) PF 5ml SDV ID ONE (10:28)
--- NOTE | 2024-06-22 13:45 | DVHDS2 ---
Discharge Summary Date of Admission Jun 17, 2024 at 17:18 Date of Discharge: Jun 22, 2024 Labs/Diagnostic Data: Laboratory Results Test 06/22/24 10:54 06/22/24 05:36 06/21/24 06:15 06/20/24 17:57 POC Glucose 139 mg/dl (70-106) White Blood Count 5.3 10^3/uL (4.4-10.8) Red Blood Count 4.66 10^6/uL (4.5-5.90) Hemoglobin 13.5 g/dL (13.5-17.5) Hematocrit 39.9 % (41.0-53.0) Mean Corpuscular Volume 85.5 fL (80.0-100.0) Mean Corpuscular Hemoglobin 29.0 pg (28.0-32.0) Mean Corpuscular Hemoglobin Concent 33.9 g/dL (32.0-36.0) Red Cell Distribution Width 13.5 % (11.8-14.3) Platelet Count 406 10^3/uL (140-450) Mean Platelet Volume 6.8 fL (6.9-10.8) Neutrophils (%) (Auto) 67.9 % (37.0-80.0) Lymphocytes (%) (Auto) 21.1 % (10.0-50.0) Monocytes (%) (Auto) 8.3 % (0.0-12.0) Eosinophils (%) (Auto) 1.9 % (0.0-7.0) Basophils (%) (Auto) 0.8 % (0.0-2.0) Neutrophils # (Auto) 3.6 10 ^3/uL (1.6-8.6) Lymphocytes # (Auto) 1.1 10 ^3/uL (0.4-5.4) Monocytes # (Auto) 0.4 10 ^3/uL (0-1.3) Eosinophils # (Auto) 0.1 10 ^3/uL (0-0.8) Basophils # (Auto) 0 10 ^3/uL (0-0.2) Nucleated Red Blood Cells 0.0 % Sodium Level 139 mmol/L (136-145) Potassium Level 3.6 mmol/L (3.5-5.1) Chloride Level 108 mmol/L (98-107) Carbon Dioxide Level 20 mmol/L (20-31) Anion Gap 11 (5-15) Blood Urea Nitrogen 13 mg/dL (9-23) Creatinine 0.89 mg/dL (0.700-1.30) Glomerular Filtration Rate Calc 89 mL/min (>90) BUN/Creatinine Ratio 14.6 (10.0-20.0) Serum Glucose 122 mg/dL (74-106) Calcium Level 8.9 mg/dL (8.7-10.4) Total Bilirubin 0.5 mg/dL (0.2-1.0) Aspartate Amino Transferase (AST) 37 U/L (13-40) Alanine Aminotransferase (ALT) 37 U/L (7-40) Alkaline Phosphatase 85 U/L (46-116) Total Protein 6.8 g/dL (5.7-8.2) Albumin 4.1 g/dL (3.2-4.8) Hemoglobin A1c 8.7 % A1C (<5.7) Vancomycin Level Trough 11.0 ug/mL (5-10) Test 06/20/24 11:30 06/17/24 11:59 06/17/24 10:30 Prothrombin Time 10.9 sec (9.3-11.8) Prothrombin Time INR 1.03 (0.9-1.15) Activated Partial Thromboplast Time 31.3 SEC (24.5-34.5) Influenza Type A Antigen Negative (Negative) Influenza Type B Antigen Negative (Negative) Erythrocyte Sedimentation Rate 63 mm/hr (0-20) D-Dimer, Quantitative 0.69 mg/L FEU (0.0-0.49) Magnesium Level 1.8 mg/dL (1.6-2.6) Troponin I High Sensitivity 13 ng/L (</=54) C-Reactive Protein High Sensitivity 4.06 mg/dL (<1.0) B-Type Natriuretic Peptide 72.45 pg/mL (0-100) Other Laboratory Tests 06/22/24 05:36 Brief Hx & Hospital Course: 74-year-old male with known history of diabetes mellitus type 2 hypertension, dyslipidemia, previous history of bilateral foot surgery presented to the hospital with left 2nd toe blackening for last one week found to have acute osteomyelitis of the left foot. The patient underwent Podiatry surgery for the left foot in which I and D to the bone, left foot partial 2nd toe amputation, left foot skin flap closure, left foot today to closer was done. Patient was being seen by infectious disease as well patient received IV antibiotics during the hospital stay. Patient will be given IV antibiotics vancomycin and ceftriaxone as ordered by Infectious Disease for 6 weeks and left foot wound care per suture sepsis. Patient being discharged under stable condition with close follow up as an outpatient with PCP, Infectious Disease, Podiatry Services. Condition at Discharge: Stable Final Diagnosis/Problems List 74-year-old male with known history of diabetes mellitus type 2 hypertension, dyslipidemia, previous history of bilateral foot surgery presented to the hospital with left 2nd toe blackening for last one week found to have 1. Acute osteomyelitis of the left foot. Status post left foot I and D to the bone, left foot partial 2nd toe amputation, left foot skin flap closure, left foot delayed closure, postop day 1 2. Diabetes mellitus type 2 3. Hypertension 4. Dyslipidemia Discharge Disposition: Home with Health Services SNF Discharge Will this Physician continue t: No Discharge Instruct/Medications Diet: Cardiac 2g Na,low cholest Diet comment: Two thousand ADA diet Activity: See Comment Activity comment: No driving, no sign of legal documents, no playing with heavy missionary while on narcotics. Follow Up/Referral: Follow up with PCP in 1 week Follow up with Dr. Jose Guadalupe weaver in 1 week Follow up with Podiatry in 1 week Medications: Vancomycin and ceftriaxone as prescribed and ordered Discharge Statement: "Patient was advised to return to the ER or call 911 if any headaches, dizziness, shortness of breath, chest pain, abdominal pain, bleeding, fevers, or worsening of medical condition. Patient was counseled about treatment plan, medications, possible side effects, patientverbalized understanding. All questions were answered to the best of my ability. This discharge took greater then 30 minutes in planning, reviewing documentation, counseling the patient, and discussing with other team members." ASSESSMENT ASSESSMENT Assessment 74-year-old male with known history of diabetes mellitus type 2 hypertension, dyslipidemia, previous history of bilateral foot surgery presented to the hospital with left 2nd toe blackening for last one week found to have 1. Acute osteomyelitis of the left foot. Status post left foot I and D to the bone, left foot partial 2nd toe amputation, left foot skin flap closure, left foot delayed closure, postop day 1 2. Diabetes mellitus type 2 3. Hypertension 4. Dyslipidemia Date of Service: Jun 22, 2024 Billing Provider: THELMA REDD MD Common Visit Codes: [id number] DISCH DAY >30min THELMA REDD MD Jun 22, 2024 13:45
[2024-06-22] MEDS ORDERED: SODIUM CHLOR 0.9% PF (SALINE LOCK) 10ML VIAL/SYR IV SCH (22:00)
== END 2024-06-22 17:48 | disposition home health service (06) | DRG 854 ==
LOC: ER 10:06 → TELE 17:18 → TELE-WESTW 21:33
PROVIDERS: ADMIT Internal Medicine; ATTEND Internal Medicine
PROC: 0Y6N0ZB Detachment at Left Foot, Partial 2nd Ray, Open Approach (ICD-10-PCS; principal; 2024-06-20 13:11)
PROC: 02HV33Z Insertion of Infusion Device into Superior Vena Cava, Percutaneous Approach (ICD-10-PCS; 2024-06-22)
PROC: B548ZZA Ultrasonography of Superior Vena Cava, Guidance (ICD-10-PCS; 2024-06-22)
DX: A41.9 Sepsis, unspecified organism (principal); E11.52 Type 2 diabetes mellitus with diabetic peripheral angiopathy with gangrene; M86.172 Other acute osteomyelitis, left ankle and foot; L03.116 Cellulitis of left lower limb; E78.5 Hyperlipidemia, unspecified; E11.621 Type 2 diabetes mellitus with foot ulcer; E11.69 Type 2 diabetes mellitus with other specified complication; K21.9 Gastro-esophageal reflux disease without esophagitis; L97.529 Non-pressure chronic ulcer of other part of left foot with unspecified severity; I10 Essential (primary) hypertension; N40.0 Benign prostatic hyperplasia without lower urinary tract symptoms; Z89.412 Acquired absence of left great toe; Z89.411 Acquired absence of right great toe; Z87.891 Personal history of nicotine dependence
CPT/HCPCS: 36415; 36569; 71045; 73660; 73718; 76937; 80053; 80202; 82962; 83036; 83735; 83880; 84484; 85025; 85379; 85610; 85652; 85730; 86141; 87040; 87070; 87075; 87077; 87186; 87205; 87804; 93925; 96365; G0378; J1815; J2250; J2543; J2704; J3490

== ENCOUNTER → 2024-06-27 | Outpatient (CLI) | payer OTHER ==
[~2024-06-27] MED LIST changes: -CLIN150C PO; -DOXY100C4 PO
[2024-06-27 12:18] LABS: Basophils # (auto) 0 10 ^3/uL (0-0.2); Basophils % (auto) 0.4 % (0.0-2.0); Eosinophils # (auto) 0.1 10 ^3/uL (0-0.8); Eosinophils % (auto) 1.1 % (0.0-7.0); Hematocrit 43.3 % (41.0-53.0); Hemoglobin 14.1 g/dL (13.5-17.5); Lymphocytes % (auto) 33.3 % (10.0-50.0); Mean Corpuscular Hemoglobin 28.5 pg (28.0-32.0); Mean Corpuscular Hgb Conc. 32.5 g/dL (32.0-36.0); Mean Corpuscular Volume 87.7 fL (80.0-100.0); Monocytes # (auto) 0.4 10 ^3/uL (0-1.3); Monocytes % (auto) 6.9 % (0.0-12.0); Neutrophils # (auto) 3.6 10 ^3/uL (1.6-8.6); Neutrophils % (auto) 58.3 % (37.0-80.0); Nucleated Red Blood Cells % 0.1 %; Platelet Count (auto) 357 10^3/uL (140-450); Red Blood Cells 4.94 10^6/uL (4.5-5.90); Red Cell Distribution Width 13.8 % (11.8-14.3); White Blood Cell 6.1 10^3/uL (4.4-10.8)
[2024-06-27 13:04] LABS: Alanine Aminotransferase 32 U/L (7-40); Albumin 4.3 g/dL (3.2-4.8); Alkaline Phosphatase 86 U/L (46-116); Anion Gap 10 (5-15); Aspartate Aminotransferase 24 U/L (13-40); BUN/Creatinine Ratio 21.6 (10.0-20.0); Bilirubin, Total 0.4 mg/dL (0.2-1.0); Blood Urea Nitrogen 19 mg/dL (9-23); Calcium 9.5 mg/dL (8.7-10.4); Carbon Dioxide 26 mmol/L (20-31); Chloride 106 mmol/L (98-107); Sodium 142 mmol/L (136-145); Total Protein 6.9 g/dL (5.7-8.2)
[2024-06-27 13:06] LABS: Glucose 129 mg/dL (74-106)
[2024-06-27 13:08] LABS: Erythrocyte Sedimentation Rate 29 mm/hr (0-20)
[2024-06-27 15:52] LABS: CRP High Sensitivity 0.32 mg/dL (<1.0)
== END | disposition home or self-care (01) ==
LOC: LAB 11:53
PROVIDERS: ATTEND Internal Medicine Infectious Disease
DX: M86.9 Osteomyelitis, unspecified (principal)
CPT/HCPCS: 36415; 80053; 80202; 85025; 85652; 86141

== ENCOUNTER → 2024-07-04 | Outpatient (CLI) | payer OTHER ==
[2024-07-04 14:07] LABS: Albumin 4.1 g/dL (3.2-4.8); Alkaline Phosphatase 99 U/L (46-116); Anion Gap 12 (5-15); BUN/Creatinine Ratio 19.8 (10.0-20.0); Blood Urea Nitrogen 20 mg/dL (9-23); Carbon Dioxide 21 mmol/L (20-31); Chloride 100 mmol/L (98-107); Potassium 4.2 mmol/L (3.5-5.1)
[2024-07-04 14:08] LABS: Bilirubin, Total 0.8 mg/dL (0.2-1.0); Total Protein 6.5 g/dL (5.7-8.2)
[2024-07-04 14:10] LABS: Alanine Aminotransferase 144 U/L (7-40); Aspartate Aminotransferase 118 U/L (13-40); Calcium 8.4 mg/dL (8.7-10.4); Glucose 126 mg/dL (74-106); Sodium 133 mmol/L (136-145)
[2024-07-04 14:11] LABS: Basophils # (auto) 0 10 ^3/uL (0-0.2); Basophils % (auto) 0.2 % (0.0-2.0); Eosinophils # (auto) 0 10 ^3/uL (0-0.8); Eosinophils % (auto) 0.1 % (0.0-7.0); Hematocrit 40.6 % (41.0-53.0); Hemoglobin 13.3 g/dL (13.5-17.5); Lymphocytes # (auto) 0.5 10 ^3/uL (0.4-5.4); Lymphocytes % (auto) 4.8 % (10.0-50.0); Mean Corpuscular Hemoglobin 28.2 pg (28.0-32.0); Mean Corpuscular Hgb Conc. 32.7 g/dL (32.0-36.0); Mean Corpuscular Volume 86.2 fL (80.0-100.0); Monocytes # (auto) 0.4 10 ^3/uL (0-1.3); Monocytes % (auto) 4.1 % (0.0-12.0); Neutrophils # (auto) 9.2 10 ^3/uL (1.6-8.6); Neutrophils % (auto) 90.8 % (37.0-80.0); Nucleated Red Blood Cells % 0.1 %; Platelet Count (auto) 229 10^3/uL (140-450); Red Blood Cells 4.71 10^6/uL (4.5-5.90); White Blood Cell 10.2 10^3/uL (4.4-10.8)
[2024-07-04 15:22] LABS: Erythrocyte Sedimentation Rate 27 mm/hr (0-20)
[2024-07-05 16:00] LABS: CRP High Sensitivity 11.93 mg/dL (<1.0)
== END | disposition home or self-care (01) ==
LOC: LAB 13:26
PROVIDERS: ATTEND Internal Medicine Infectious Disease
DX: M86.9 Osteomyelitis, unspecified (principal)
CPT/HCPCS: 36415; 80053; 80202; 85025; 85652; 86141

== ENCOUNTER → 2024-07-12 | Outpatient (CLI) | payer OTHER ==
[2024-07-12 11:47] LABS: Basophils # (auto) 0.1 10 ^3/uL (0-0.2); Eosinophils # (auto) 0.1 10 ^3/uL (0-0.8); Lymphocytes # (auto) 1.5 10 ^3/uL (0.4-5.4); Mean Corpuscular Hemoglobin 28.1 pg (28.0-32.0); Monocytes # (auto) 0.6 10 ^3/uL (0-1.3); Nucleated Red Blood Cells % 0.1 %
[2024-07-12 11:49] LABS: Basophils % (auto) 0.8 % (0.0-2.0); Eosinophils % (auto) 1.9 % (0.0-7.0); Hematocrit 40.4 % (41.0-53.0); Hemoglobin 13.2 g/dL (13.5-17.5); Lymphocytes % (auto) 22.7 % (10.0-50.0); Mean Corpuscular Hgb Conc. 32.6 g/dL (32.0-36.0); Mean Corpuscular Volume 86.2 fL (80.0-100.0); Monocytes % (auto) 9.1 % (0.0-12.0); Neutrophils # (auto) 4.4 10 ^3/uL (1.6-8.6); Neutrophils % (auto) 65.5 % (37.0-80.0); Platelet Count (auto) 448 10^3/uL (140-450); Red Blood Cells 4.69 10^6/uL (4.5-5.90); Red Cell Distribution Width 14.3 % (11.8-14.3); White Blood Cell 6.8 10^3/uL (4.4-10.8)
[2024-07-12 12:36] LABS: Anion Gap 11 (5-15); Carbon Dioxide 24 mmol/L (20-31); Chloride 101 mmol/L (98-107); Potassium 3.8 mmol/L (3.5-5.1)
[2024-07-12 12:38] LABS: Calcium 9.1 mg/dL (8.7-10.4)
[2024-07-12 12:42] LABS: BUN/Creatinine Ratio 13.6 (10.0-20.0); Blood Urea Nitrogen 12 mg/dL (9-23)
[2024-07-12 12:43] LABS: Glucose 134 mg/dL (74-106); Sodium 136 mmol/L (136-145)
== END | disposition home or self-care (01) ==
LOC: LAB 11:19
PROVIDERS: ATTEND Podiatrist
DX: E11.42 Type 2 diabetes mellitus with diabetic polyneuropathy (principal)
CPT/HCPCS: 36415; 80048; 85025

== ENCOUNTER 2024-09-01 13:55 | Inpatient (IN) | payer OTHER ==
[~2024-09-01] VITALS: Ht 188 cm; Wt 88.5 kg
[2024-09-01 14:27] VITALS: BP 128/70; PULSE 85; PULSE 96; RESP 18; TEMP 98.6; O2SAT 96; O2SAT 98
[2024-09-01] MEDS ORDERED: MAALOX PLUS or MAALOX 30 ML PO PRN (14:45)
[2024-09-01] MEDS ORDERED: HYDROmorphone HCL 2 MG/ML VL/or syr IV PRN (14:45)
[2024-09-01] MEDS ORDERED: ONDANSETRON HCL 4 MG/2 ML VIAL IV PRN (14:45)
[2024-09-01] MEDS ORDERED: DEXTROSE (50%) 50ML SYRG IV PRN (14:45)
[2024-09-01] MEDS ORDERED: DOCUSATE SOD 100 MG CAP PO PRN (14:45)
[2024-09-01] MEDS ORDERED: HYDROcodone-ACET 5/325MG TAB PO PRN (14:45)
[2024-09-01] MEDS ORDERED: VANCOMYCIN PER PHARMACY 0 MG IV SCH (14:45)
--- NOTE | 2024-09-01 14:58 | DVHINCON2 ---
Date Seen: Sep 01, 2024 Reason for Consultation Left foot gangrenous toe History of Present Illness Patient is a 74-year-old male who presents to clinic for a left foot gangrenous toe. Patient has a history of a hallux amputation. Patient states he noticed it a few days ago and came into clinic after feeling ill. Patient did start to experience in fevers chills nausea. The patient was admitted for IV antibiotics and to have a partial 2nd toe amputation performed. Patient will have cultures taken. Past Medical History See H&P Past Surgical History See H&P Family History: Patient reports no known family medical history. Allergies: Coded Allergies: NO KNOWN ALLERGIES (Unverified , 01/26/22) Home Meds Active Scripts Vancomycin HCl (Vancomycin HCl) 1,000 Mg Inj, 1000 MG IV BID for 42 Days, INJ Prov:AUSTIN SHIRLEY RESIDENT 08/13/23 Reported Medications Metformin Hydrochloride (Metformin Hcl) 500 Mg Tab, 1000 MG PO BIDBRS for 30 Day s, MG 07/09/22 Tamsulosin Hcl (Tamsulosin Hcl) 0.4 Mg Cap, 0.4 MG PO DAILY for 30 Days, MG 07/09/22 Glipizide (Glipizide) 10 Mg Tab, 20 MG PO BIDAC for 30 Days, MG 07/09/22 Gabapentin (Gabapentin) 300 Mg Cap, 300 MG PO HSPRN for 30 Days, MG 07/09/22 Sacubitril-Valsartan (Entresto 24-26 mg) 1 Tab Tab, 1 TAB PO BID, TAB 07/09/22 Celecoxib (Celebrex) 100 Mg Cap, 200 MG PO DAILYP PRN for MILD PAIN (1-3 PAIN SCALE) for 30 Days, MG 07/09/22 Atorvastatin Calcium (ATORVASTATIN CALCIUM) 40 Mg Tab, 40 MG PO HS, TAB 07/09/22 Current Medications Current Medications Medications (Trade) Dose Ordered Sig/Nida Route PRN Reason Start Time Stop Time Status Last Admin Sodium Chloride 1,000 ml @ 60 mls/hr [id number] IV 09/01/24 14:45 UNV Al Hydrox/Mg Hydrox/Simethicone (Maalox Plus) 30 ml Q6HP PRN PO FOR STOMACH DISTRESS 09/01/24 14:45 UNV Docusate Sodium (Colace Capsule) 100 mg BIDPRN PRN PO FOR CONSTIPATION 09/01/24 14:45 UNV Acetaminophen (Tylenol Tablet) 650 mg Q6HP PRN PO PAIN SCALE 1-3 OR TEMP>100.4 09/01/24 14:45 UNV Temazepam (Restoril) 15 mg QHSP PRN PO FOR INSOMNIA 09/01/24 14:45 UNV Acetaminophen/ Hydrocodone Bitart ([place] 5/325MG Tab) 1 tab Q4HP PRN PO MODERATE PAIN (4-6 PAIN SCALE) 09/01/24 14:45 UNV Hydromorphone HCl (Dilaudid Injection) 0.5 mg Q4HP PRN IV SEVERE PAIN (7-10 PAIN SCALE) 09/01/24 14:45 UNV Ondansetron HCl (Zofran) 4 mg Q4HP PRN IV NAUSEA / VOMITING 09/01/24 14:45 UNV Enoxaparin Sodium (Lovenox) 40 mg DAILY SC 09/02/24 10:00 UNV Vancomycin HCl 0 ml @ 0 mls/hr UD IV 09/01/24 14:45 UNV Cefepime HCl 50 ml @ 12.5 mls/hr DAILY IV 09/02/24 10:00 UNV Diagnostic Test (Pha) (Accu-Chek Comfort Curve T) 1 strip ACHS 09/01/24 17:00 UNV Insulin Human Regular (InsuLIN R) HS SC 09/01/24 22:00 UNV Insulin Human Regular (InsuLIN R) AC SC 09/01/24 17:00 UNV Dextrose 50 ml UD PRN IV Blood Sugar LESS THAN 60 09/01/24 14:45 UNV Gabapentin (Neurontin Capsule) 300 mg HSPRN PO 09/01/24 22:00 UNV Sacubitril/ Valsartan (Entresto 24-26 Mg tab) 1 tab BID PO 09/01/24 22:00 UNV Tamsulosin HCl (Flomax) 0.4 mg DAILY PO 09/02/24 10:00 UNV Patient Own Medication 40 mg HS PO 09/01/24 22:00 UNV Physical Exam Dermatological: Skin is dry with mild erythema and some maceration around the wound site No gross deformities noted Mild non-pitting edema present bilaterally Left 2nd toe gangrene Vascular: Dorsalis pedis and posterior tibial pulses are 1+ bilaterally Capillary refill is under 2 seconds Skin temperature is warm bilaterally Neurologic: Protective sensation is absent on the plantar forefoot bilaterally Monofilament testing reveals decreased sensation in multiple plantar sites Musculoskeletal: Range of motion at the ankle and MTP joints is within normal limits. Strength is 5/5 in all tested muscle groups. Gait is antalgic due to offloading of the affected limb. Problems(with codes): (1) Acute osteomyelitis involving lower leg (2) Lower extremity cellulitis (3) Sepsis (4) Elevated troponin (5) Pulmonary vascular congestion (6) Elevated lactic acid level (7) Wound of foot (8) PAD (peripheral artery disease) (9) Osteomyelitis of ankle or foot, left, acute Plan/Recommendation ASSESSMENT: Patient is a 74 year old seen on the floor for a worsening ulcer PLAN: - The patients chart was reviewed, clinical findings were discussed with the patient, the etiologies of the conditions were discussed in detail, and a treatment plan was agreed to at this time, with both oral and written instructions provided. - reviewed advanced imaging - discussed plan is to perform an incision and drainage and partial 2nd toe amputation - take him to the OR today - we will get cultures in the OR - can weightbear as tolerated in postoperative shoe All questions were answered and concerns addressed to the patient's satisfaction. The patient was given the phone number to the clinic and was told how to make contact with the clinic should any concerns or questions arise. Patient understands that if any questions or concerns arise prior to the next appointment, we should be contacted immediately. FOLLOW-UP: Continue to follow while inpatient Plan discussed with: Patient Date of Service: Sep 01, 2024 Billing Provider: RANDEE PENA DPM Common Visit Codes: CONSULT ONLY Consultation Codes: [id number] CONSULT <80MIN RANDEE PENA DPM Sep 01, 2024 14:58
[2024-09-01] MEDS: VANCOMYCIN HCL 1000 MG VL ONE (15:23)
--- NOTE | 2024-09-01 15:32 | DVHOP2 ---
Operative Report - 2 Report Details Date: 09/01/24 Preop Diagnosis: 1. Left 3rd toe osteomyelitis 2. Left 3rd toe gangrene 3. Left 3rd toe cellulitis 4. Left 3rd toe abscess Postop Diagnosis: Same as preop Surgeon: Randee Pena MD Anesthesiologist: None Anesthesia: Local Consent: The patient was informed of the risks and benefits of the procedure. These include but are not limited to complications of anesthesia, postoperative infection, incomplete relief of symptoms, recurrence of symptoms, damage to blood vessels, nerves and tendons, deep venous thrombosis, pulmonary embolism and possible need for repeat surgery in the future. Complications: None Estimated Blood Loss: Minimal Fluids: None Findings: Consistent with the diagnosis Indications for Surgery: Worsening left 3rd toe gangrene Name of Procedure Performed 1. Left foot I&D to bone (37491) 2. Left third toe amputation (13172) 3. Left third toe bone biopsy () 4. Left foot delayed closure (69022) Procedure Details Procedure Details: PRE-PROCEDURE INFORMATION: In the pre-op holding area, the extremity to be operated on was clearly marked and the patient verified correct laterality of the marking. The patient was transferred to the OR table and placed in a supine position. A timeout was performed in which identification of the correct patient, procedure, location, and materials was done. The left foot and leg were prepped and draped in normal sterile fashion. DESCRIPTION OF PROCEDURE: Attention was directed to the left where area of fluctuance was noted. An incision was made over this area and was deepened through blunt dissection. The incision was deepened to the level of abscess and bone. Care was taken to the dissection to avoid any neurovascular and tendinous structures. The incision was deepened to the bone, and the abscess appeared to be purulent fluid consistent with pus. The cortices of the bone was then removed with rongeur an all necrotic tissue. After the abscess was drained, the area was irrigated with 3 L normal saline using cysto tubing. Deep cultures were then obtained from the wound. The area was then inspected and any areas of tracking, especially along the tendons were also drained. It was decided at the point that there was tumors necrosis of the phalanx, and a hallux amputation was performed. Using a 15. Blade the amputation was performed at the level of the MPJ to allow for adequate closure of the wound due to decreased blood flow. A bone biopsy was then taken of the left 3rd toe which was deepened to the muscle belly and tendons. The bone was then sent to pathology to determine the extent of osteomyelitis. A delayed closure was then performed using 2-0 nylon after was deemed appropriate with no longer concern for infection. POSTOPERATIVE INFORMATION: The patient tolerated the above noted procedure and anesthesia well and was transferred to the PACU with vital signs stable, and vascular status intact with capillary refill intact to all digits. Patient will return to the floor and continue antibiotics. Deep cultures were taken. Patient can be discharged home tomorrow on p.o. antibiotics. Patient can weightbear as tolerated in postoperative shoe. Deep cultures were taken the day Specimen: Left 3rd digit Condition Good Disposition Still a Patient RANDEE PENA DPM Sep 01, 2024 15:31
[2024-09-01] MEDS: CEFEPIME 2GM/50ML NS 50 ML IV ONE (15:55)
[2024-09-01] MEDS: SODIUM CHLORIDE 0.9% 1,000 ML IV SCH (16:06)
[2024-09-01 16:16] LABS: Basophils # (auto) 0 10 ^3/uL (0-0.2); Basophils % (auto) 0.4 % (0.0-2.0); Eosinophils # (auto) 0 10 ^3/uL (0-0.8); Eosinophils % (auto) 0.5 % (0.0-7.0); Hemoglobin 13.1 g/dL (13.5-17.5); Lymphocytes # (auto) 1.5 10 ^3/uL (0.4-5.4); Mean Corpuscular Hemoglobin 28.7 pg (28.0-32.0); Mean Corpuscular Hgb Conc. 33.5 g/dL (32.0-36.0); Mean Corpuscular Volume 85.8 fL (80.0-100.0); Monocytes # (auto) 0.5 10 ^3/uL (0-1.3); Monocytes % (auto) 6.7 % (0.0-12.0); Neutrophils % (auto) 71.4 % (37.0-80.0); Platelet Count (auto) 443 10^3/uL (140-450); Red Blood Cells 4.55 10^6/uL (4.5-5.90); Red Cell Distribution Width 14.9 % (11.8-14.3)
[2024-09-01 16:30] LABS: Alanine Aminotransferase 17 U/L (7-40); Albumin 4.4 g/dL (3.2-4.8); Alkaline Phosphatase 107 U/L (46-116); Anion Gap 10 (5-15); Aspartate Aminotransferase 13 U/L (13-40); BUN/Creatinine Ratio 21.5 (10.0-20.0); Blood Urea Nitrogen 20 mg/dL (9-23); Carbon Dioxide 23 mmol/L (20-31); Chloride 104 mmol/L (98-107); Glucose 175 mg/dL (74-106); Potassium 4.3 mmol/L (3.5-5.1); Sodium 137 mmol/L (136-145); Total Protein 7.7 g/dL (5.7-8.2)
[2024-09-01 16:31] LABS: Bilirubin, Total 0.5 mg/dL (0.2-1.0)
[2024-09-01 16:44] VITALS: BP 141/75; PULSE 91; RESP 18; TEMP 97.6; O2SAT 97
[2024-09-01 16:48] LABS: INR 0.99 (0.9-1.15); Partial Thromboplastin Time 31.3 SEC (24.5-34.5); Prothrombin Time 10.5 sec (9.3-11.8)
[2024-09-01 16:59] LABS: Urine Bacteria None Seen /hpf (None Seen)
[2024-09-01 17:14] LABS: Urine Blood Negative /uL (Negative); Urine Clarity Clear (Clear); Urine Color Light-Yellow (Yellow); Urine Protein, UAD TRACE (Negative); Urine Specific Gravity 1.022 (1.001-1.035); Urine Squamous Epithelial Cell FEW /hpf (<5); Urine Urobilinogen Normal (Negative); Urine WBC < 1 /HPF (0-3); Urine pH 5.5 (5.0-9.0)
[2024-09-01] MEDS: ACCU-CHEK COMFORT CURVE STRIP VI SCH (17:49)
[2024-09-01] MEDS: InsuLIN REG 1unit/0.01ml Soln (100units/ml) SC SCH ×2 (17:50→22:16)
[2024-09-01] MEDS: VANCOMYCIN 1.5GM/300ML 300 ML IV ONE (18:08)
--- NOTE | 2024-09-01 19:12 | DVHHPRES ---
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 The patient presented to the ED due to blackish/dark discoloration of the 3rd digit of the left foot. Patient states that three days ago he started noticing that the tip of the 3rd phalanx of the left foot was turning dark, he also reported that it was painless so he thought that it was transient and that is why he presented three days later. Upon admission, initial CBC and BMP were on normal range. Professor Of Environmental Science was consulted and Dr. Braswell took the patient to the OR for partial amputation of the 3rd digit. Patient was started on IV vancomycin and cefepime and we will be admitted for further assessment and management. Cardiovascular: HTN Endocrine: Diabetes Past Surgical History: Other (Amputation of the big toe of the right foot, amputation of the big toe of the left foot and 2nd digit of the left foot as we ll.) Family History: None Smoke: No ALCOHOL: none Drugs: None Lives: with Family Domestic Violence: Neg Review of Systems Constitutional: No: Fever, Chills, Sweats, Weakness, Malaise, Other Eyes: No: Pain, Vision change, Conjunctivae inflammation, Eyelid inflammation, Other, Redness ENT: No: Ear pain, Ear discharge, Nose pain, Nose discharge, Nose congestion, Mouth pain, Mouth swelling, Throat pain, Throat swelling, Other Respiratory: No: Cough, Dry, Shortness of breath, SOB with excertion, Wheezing, Hemoptysis, Pleuritic Pain, Sputum, Wheezing, Other Cardiovascular: No: Chest Pain, Palpitations, Orthopnea, Paroxysmal Noc. Dyspnea, Edema, Lt Headedness, Other Gastrointestinal: No: Nausea, Vomiting, Abdominal Pain, Diarrhea, Constipation, Melena, Hematochezia, Other Genitourinary: No Dysuria, No Frequency, No Incontinence, No Hematuria, No Re tention, No Other Musculoskeletal: No: other, neck pain, shoulder pain, arm pain, back pain, hand pain, leg pain, foot pain Skin: No: Rash, Lesions, Jaundice, Bruising, Other Neurological: No: Weakness, Numbness, Incoordination, Change in speech, Confusion, Seizures, Other Allergies: Coded Allergies: NO KNOWN ALLERGIES (Unverified , 01/26/22) Medications Current Medications Medications Dose Ordered Sig/Nida Route Start Time Stop Time Status Last Admin Dose Admin Sodium Chloride 1,000 ml @ 60 mls/hr [id number] IV 09/01/24 14:45 09/01/24 16:06 60 MLS/HR Al Hydrox/Mg Hydrox/Simethicone 30 ml Q6HP PRN PO 09/01/24 14:45 Docusate Sodium 100 mg BIDPRN PRN PO 09/01/24 14:45 Acetaminophen 650 mg Q6HP PRN PO 09/01/24 14:45 Temazepam 15 mg QHSP PRN PO 09/01/24 14:45 Acetaminophen/ Hydrocodone Bitart 1 tab Q4HP PRN PO 09/01/24 14:45 Hydromorphone HCl 0.5 mg Q4HP PRN IV 09/01/24 14:45 Ondansetron HCl 4 mg Q4HP PRN IV 09/01/24 14:45 Enoxaparin Sodium 40 mg DAILY SC 09/02/24 10:00 Vancomycin HCl 0 ml @ 0 mls/hr UD IV 09/01/24 14:45 Cefepime HCl 50 ml @ 12.5 mls/hr Q8H IV 09/01/24 22:00 Diagnostic Test (Pha) 1 strip ACHS 09/01/24 17:00 09/01/24 17:49 1 STRIP Insulin Human Regular HS SC 09/01/24 22:00 Insulin Human Regular AC SC 09/01/24 17:00 09/01/24 17:50 3 UNITS Dextrose 50 ml UD PRN IV 09/01/24 14:45 Gabapentin 300 mg HS PO 09/01/24 22:00 Sacubitril/ Valsartan 1 tab BID PO 09/01/24 22:00 Tamsulosin HCl 0.4 mg DAILY PO 09/02/24 10:00 Atorvastatin Calcium 40 mg HS PO 09/01/24 22:00 Vancomycin HCl 250 ml @ 200 mls/hr Q12H IV 09/02/24 06:00 Exam Vital Signs Vital Signs Date Time Temp Pulse Resp B/P (MAP) Pulse Ox O2 Delivery O2 Flow Rate FiO2 09/01/24 16:44 97.6 91 18 141/75 (97 97 97.6 09/01/24 14:27 Room Air* 0 21 General Appearance: Alert, Oriented X3, Cooperative, No acute distress HEENT: Atraumatic, PERRLA, EOMI, Mucous membr. moist/pink Respiratory: Clear to auscultation, Normal air movement Cardiovascular: Regular rate, Normal S1, Normal S2, No murmurs Abdominal: Normal bowel sounds, Soft, No tenderness, No hepatospenomegaly, No masses Extremities: No clubbing, No cyanosis, No edema, Normal pulses, No tenderness/swelling Skin: No rashes, No breakdown, No significant lesion Neuro: Normal gait, Normal speech, Strength at 5/5 X4 ext, Normal tone, Sensation intact, Cranial nerves 3-12 NL, Reflexes 2+ Psych/Mental Status: Mental status NL, Mood NL Labs/Xrays Labs Test 09/01/24 16:58 09/01/24 16:16 09/01/24 16:00 Range/Units Urine Color Light-yellow Yellow Urine Clarity Clear Clear Urine pH 5.5 5.0-9.0 Urine Specific [place] 1.022 1.001-1.035 Urine Protein Trace H Negative Urine Ketones 1+ H Negative Urine Blood Negative Negative /uL Urine Nitrite Negative Negative Urine Bilirubin Negative Negative Urine Urobilinogen Normal Negative mg/dL Urine Leukocyte Esterase Negative Negative /uL Urine RBC <1 0 - 3 /hpf Urine Microscopic WBC < 1 0-3 /HPF Urine Squamous Epithelial Cells Few <5 /hpf Urine Bacteria None seen None Seen /hpf Urine Glucose 4+ H Normal mg/dL POC Glucose 162 H 70-106 mg/dl White Blood Count 7.0 4.4-10.8 10^3/uL Red Blood Count 4.55 4.5-5.90 10^6/uL Hemoglobin 13.1 L 13.5-17.5 g/dL Hematocrit 39.0 L 41.0-53.0 % Mean Corpuscular Volume 85.8 80.0-100.0 fL Mean Corpuscular Hemoglobin 28.7 28.0-32.0 pg Mean Corpuscular Hemoglobin Concent 33.5 32.0-36.0 g/dL Red Cell Distribution Width 14.9 H 11.8-14.3 % Platelet Count 443 140-450 10^3/uL Mean Platelet Volume 6.7 L 6.9-10.8 fL Neutrophils (%) (Auto) 71.4 37.0-80.0 % Lymphocytes (%) (Auto) 21.0 10.0-50.0 % Monocytes (%) (Auto) 6.7 0.0-12.0 % Eosinophils (%) (Auto) 0.5 0.0-7.0 % Basophils (%) (Auto) 0.4 0.0-2.0 % Neutrophils # (Auto) 5.0 1.6-8.6 10 ^3/uL Lymphocytes # (Auto) 1.5 0.4-5.4 10 ^3/uL Monocytes # (Auto) 0.5 0-1.3 10 ^3/uL Eosinophils # (Auto) 0 0-0.8 10 ^3/uL Basophils # (Auto) 0 0-0.2 10 ^3/uL Nucleated Red Blood Cells 0.0 % Prothrombin Time 10.5 9.3-11.8 sec Prothrombin Time INR 0.99 0.9-1.15 Activated Partial Thromboplast Time 31.3 24.5-34.5 SEC Sodium Level 137 136-145 mmol/L Potassium Level 4.3 3.5-5.1 mmol/L Chloride Level 104 98-107 mmol/L Carbon Dioxide Level 23 20-31 mmol/L Anion Gap 10 5-15 Blood Urea Nitrogen 20 9-23 mg/dL Creatinine 0.93 0.700-1.30 mg/dL Glomerular Filtration Rate Calc 85 >90 mL/min BUN/Creatinine Ratio 21.5 H 10.0-20.0 Serum Glucose 175 H 74-106 mg/dL Calcium Level 9.0 8.7-10.4 mg/dL Total Bilirubin 0.5 0.2-1.0 mg/dL Aspartate Amino Transferase (AST) 13 13-40 U/L Alanine Aminotransferase (ALT) 17 7-40 U/L Alkaline Phosphatase 107 46-116 U/L Total Protein 7.7 5.7-8.2 g/dL Albumin 4.4 3.2-4.8 g/dL Assessment/Plan Assessment/Plan Assessment/Plan Left foot gangrenous toe (3rd digit) Possible osteomyelitis of the tip of 3rd toe of the left foot S/P left 3rd toe tip amputation and I&D -start IV vancomycin -start IV cefepime -Continue IV fluids -Wound cultures and biopsy sent to pathology -daily wound dressing and cleaning Primary hypertension -Start lisinopril 40mg daily -Satrt amlodipine 10mg daily -Monitor BP Type II Diabetes Mellitus -Ordered HBA1C -Start moderate sliding scale insulin -Monitor BG Goals of care discussed with the patient at bedside for >25min, FULL CODE Plan discussed with Dr. Lewis Plan discussed with: Patient Date of Service: Sep 01, 2024 Billing Provider: HANSA LEWIS MD Common Visit Codes: [id number] INP/OBS CARE (HIGH) Secondary Visit Codes: [id number] CARE PLAN 30 MINUTES PEPE PERKINS RESIDENT Sep 01, 2024 19:12 HANSA LEWIS MD Sep 01, 2024 19:32
[2024-09-01 19:51] LABS: Triglycerides 65 mg/dL (< 150)
[2024-09-01 19:53] LABS: Cholesterol 162 mg/dL (< 200); HDL Cholesterol 55 mg/dL (40-59)
[2024-09-01 19:54] LABS: LDL Cholesterol 105 mg/dL (< 100)
[2024-09-01 20:00] VITALS: PULSE 95; RESP 18; O2SAT 96
[2024-09-01 21:00] VITALS: BP 147/75; PULSE 95; RESP 18; TEMP 98.4; O2SAT 96
[2024-09-01] MEDS: amLODIPine BESYLATE 5 MG TAB PO SCH (21:00)
[2024-09-01] MEDS ORDERED: SACUBITRIL-VALSARTAN 24mg/26mg TAB PO SCH (22:00)
[2024-09-01] MEDS: TEMAZEPAM 15 MG CAP PO PRN (22:17)
[2024-09-01] MEDS: ATORVASTATIN 20 MG TAB PO SCH (22:17)
[2024-09-01] MEDS: GABAPENTIN 300 MG CAP PO SCH (22:17)
[2024-09-01] MEDS: CEFEPIME 2GM/50ML NS 50 ML IV SCH (22:17)
[2024-09-02] VITALS (7 sets, daily range): BP systolic 106–129; BP diastolic 59–71; PULSE 75–119; RESP 16–20; TEMP 98.8–102.9; O2SAT 91–96
[2024-09-02] MEDS: VANCOMYCIN 1.25GM/250ML 250 ML IV SCH (05:55)
[2024-09-02 08:28] LABS: Basophils # (auto) 0 10 ^3/uL (0-0.2); Basophils % (auto) 0.2 % (0.0-2.0); Eosinophils # (auto) 0 10 ^3/uL (0-0.8); Hematocrit 39.5 % (41.0-53.0); Hemoglobin 13.3 g/dL (13.5-17.5); Lymphocytes # (auto) 0.2 10 ^3/uL (0.4-5.4); Mean Corpuscular Hgb Conc. 33.7 g/dL (32.0-36.0); Monocytes # (auto) 0.4 10 ^3/uL (0-1.3); Monocytes % (auto) 3.4 % (0.0-12.0); Neutrophils % (auto) 94.4 % (37.0-80.0); Platelet Count (auto) 425 10^3/uL (140-450); Red Cell Distribution Width 14.9 % (11.8-14.3); White Blood Cell 11.7 10^3/uL (4.4-10.8)
[2024-09-02 08:31] LABS: Anion Gap 12 (5-15); Chloride 102 mmol/L (98-107); Potassium 4.7 mmol/L (3.5-5.1)
[2024-09-02 08:37] LABS: Carbon Dioxide 20 mmol/L (20-31); Sodium 134 mmol/L (136-145)
[2024-09-02 08:38] LABS: BUN/Creatinine Ratio 19.3 (10.0-20.0); Blood Urea Nitrogen 21 mg/dL (9-23)
[2024-09-02 08:39] LABS: Glucose 220 mg/dL (74-106)
[2024-09-02] MEDS: TAMSULOSIN HYDROCHLORIDE 0.4 MG CAP PO SCH (09:34)
[2024-09-02] MEDS: LISINOPRIL 20 MG TAB PO SCH (09:35)
[2024-09-02] MEDS: ENOXAPARIN SOD 40 MG/0.4 ML SYRINGE SC SCH (09:35)
--- NOTE | 2024-09-02 11:04 | DVHPNRES ---
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 The patient presented to the ED due to blackish/dark discoloration of the 3rd digit of the left foot. Patient states that three days ago he started noticing that the tip of the 3rd phalanx of the left foot was turning dark, he also reported that it was painless so he thought that it was transient and that is why he presented three days later. Upon admission, initial CBC and BMP were on normal range. Boiler Plant Operator was consulted and Dr. Braswell took the patient to the OR for partial amputation of the 3rd digit. Patient was started on IV vancomycin and cefepime and we will be admitted for further assessment and management. Patient seen and examined at bedside. Today morning labs are showing a slightly elevated WBC at 11.7. Rest of labs came back grossly unremarkable. Patient denies fever/chills, shortness of breaths, or lower extremity pain. Patient is status post incision and drainage, amputation of the tip of the 3rd toe of the left foot. Patient stated that he is feeling well overall and has no significant complaints at this time. We will continue IV vancomycin and cefepime. We are still pending on wound cultures and biopsy from the procedure. We will continue monitoring and continue current medical management. ROS Constitutional: Denies weight loss, fever and chills. HEENT: Denies changes in vision and hearing. Respiratory: Denies shortness of breath and cough Cardiovascular: Denies chest discomfort or palpitations GI: Denies abdominal pain, nausea, vomiting and diarrhea. : Denies dysuria and urinary frequency. Musculoskeletal: Denies myalgias and joint pain Skin: Denies rash and pruritus. Neurological: Denies dizziness, headache, vision or hearing problems Objective vital signs Vital Sign Date Time Temp Pulse Resp B/P (MAP) Pulse Ox O2 Delivery O2 Flow Rate FiO2 09/02/24 09:35 116/71 09/02/24 08:47 98.8 110 18 92 98.8 4/18/25 07:42 Room Air* 0 21 Total Intake and Output 09/01/24 09/01/24 09/02/24 15:00 23:00 07:00 Intake Total 200 ml 300 ml Output Total 1475 ml Balance 200 ml -1175 ml medications Current Medications Medications Dose Ordered Sig/Nida Route Start Time Stop Time Status Last Admin Dose Admin Sodium Chloride 1,000 ml @ 60 mls/hr [id number] IV 09/01/24 14:45 09/02/24 07:38 60 MLS/HR Al Hydrox/Mg Hydrox/Simethicone 30 ml Q6HP PRN PO 09/01/24 14:45 Docusate Sodium 100 mg BIDPRN PRN PO 09/01/24 14:45 Acetaminophen 650 mg Q6HP PRN PO 09/01/24 14:45 Temazepam 15 mg QHSP PRN PO 09/01/24 14:45 09/01/24 22:17 15 MG Acetaminophen/ Hydrocodone Bitart 1 tab Q4HP PRN PO 09/01/24 14:45 Hydromorphone HCl 0.5 mg Q4HP PRN IV 09/01/24 14:45 Ondansetron HCl 4 mg Q4HP PRN IV 09/01/24 14:45 Enoxaparin Sodium 40 mg DAILY SC 09/02/24 10:00 09/02/24 09:35 40 MG Vancomycin HCl 0 ml @ 0 mls/hr UD IV 09/01/24 14:45 Cefepime HCl 50 ml @ 12.5 mls/hr Q8H IV 09/01/24 22:00 09/02/24 07:33 12.5 MLS/HR Diagnostic Test (Pha) 1 strip ACHS 09/01/24 17:00 09/02/24 06:39 1 STRIP Insulin Human Regular HS SC 09/01/24 22:00 09/01/24 22:16 3 UNITS Insulin Human Regular AC SC 09/01/24 17:00 09/02/24 06:38 4 UNITS Dextrose 50 ml UD PRN IV 09/01/24 14:45 Gabapentin 300 mg HS PO 09/01/24 22:00 09/01/24 22:17 300 MG Tamsulosin HCl 0.4 mg DAILY PO 09/02/24 10:00 09/02/24 09:34 0.4 MG Atorvastatin Calcium 40 mg HS PO 09/01/24 22:00 09/01/24 22:17 40 MG Vancomycin HCl 250 ml @ 200 mls/hr Q12H IV 09/02/24 06:00 09/02/24 05:55 200 MLS/HR Lisinopril 40 mg DAILY PO 09/02/24 10:00 09/02/24 09:35 40 MG Amlodipine Besylate 10 mg DAILY PO 09/01/24 20:00 09/02/24 09:35 10 MG Examination Physical Examination General: Patient alert and oriented in person, place and time. Patient following commands. HEENT: Normocephalic, atraumatic, moist mucous membranes Respiratory/pulmonary: Clear lungs bilaterally, no associated crackles or wheezes. Cardiovascular: Normal heart sounds S1 and S2 with no associated murmurs Abdomen: Abdomen nondistended, there is no pain to palpation in any of the abdominal quadrants, no palpable masses. Extremities: There is a big toe amputation of the right foot. There is big toe amputation of the left foot with 2nd toe as well. There is clean gauze and bandage placed at this time which was recently placed by surgeon. There is no peripheral edema present at the lower extremities. Peripheral Pulses: 3+ Radial (R). 3+ Radial (L). 3+ Dorsalis pedis (R). 3+ Dorsalis pedis(L) Skin: No rashes or pruritus, there is no sacral edema present at this time. Neurological: Intact cranial nerves with no focal neurologic deficits laboratory and microbiology Laboratory Tests 09/02/24 07:30 Test 09/02/24 07:30 Range/Units Serum Glucose 220 H 74-106 mg/dL Problem List/Assessment/Plan Problem List/Assessment/Plan Assessment/Plan Left foot gangrenous toe (3rd digit) Possible osteomyelitis of the tip of 3rd toe of the left foot S/P left 3rd toe tip amputation and I&D day 1 -Continue IV vancomycin -Continue IV cefepime -Continue IV fluids -Wound cultures and biopsy sent to pathology -daily wound dressing and cleaning -Pending wound cultures Primary hypertension -Continue lisinopril 40mg daily -Continue amlodipine 10mg daily -Monitor BP Type II Diabetes Mellitus -Ordered HBA1C -Start moderate sliding scale insulin -Monitor BG Hx of BPH -Tamsulosin 0.4mg daily Goals of care discussed with the patient at bedside for >25min, FULL CODE Plan discussed with Dr. Lewis Plan discussed with: Patient My Orders My Orders Orders - PEPE PERKINS Procedure Category Date Status Time Lisinopril Tablet PHA 09/02/24 In Process (Zestril Tablet) 10:00 Amlodipine Tablet PHA 09/01/24 In Process (Norvasc Tablet) 20:00 Insulin Lantus PHA 09/02/24 Logged (Glargine) (Lantus) 20:00 Date of Service: Sep 02, 2024 Billing Provider: HANSA LEWIS MD Common Visit Codes: [id number] INP/OBS CARE(HIGH) PEPE PERKINS RESIDENT Sep 02, 2024 11:04 HANSA LEWIS MD Sep 02, 2024 14:17
[2024-09-02] MEDS: ACETAMINOPHEN 325 MG TAB PO PRN (16:09)
[2024-09-02] MEDS: INSULIN LANTUS (GLARGINE) 1 /0.01ml (100units/ml) SC SCH (20:10)
[2024-09-03 00:51] VITALS: BP 112/53; PULSE 89; RESP 20; TEMP 99.6; O2SAT 95
[2024-09-03 05:00] VITALS: BP 109/60; PULSE 96; RESP 24; TEMP 99.7; O2SAT 91
[2024-09-03 05:55] LABS: Basophils # (auto) 0 10 ^3/uL (0-0.2); Basophils % (auto) 0.2 % (0.0-2.0); Eosinophils # (auto) 0.1 10 ^3/uL (0-0.8); Eosinophils % (auto) 0.7 % (0.0-7.0); Hematocrit 36.5 % (41.0-53.0); Hemoglobin 12.5 g/dL (13.5-17.5); Lymphocytes # (auto) 0.3 10 ^3/uL (0.4-5.4); Lymphocytes % (auto) 3.5 % (10.0-50.0); Mean Corpuscular Hemoglobin 28.9 pg (28.0-32.0); Mean Corpuscular Hgb Conc. 34.1 g/dL (32.0-36.0); Mean Corpuscular Volume 84.7 fL (80.0-100.0); Monocytes # (auto) 0.3 10 ^3/uL (0-1.3); Monocytes % (auto) 3.8 % (0.0-12.0); Neutrophils # (auto) 7.2 10 ^3/uL (1.6-8.6); Neutrophils % (auto) 91.8 % (37.0-80.0); Platelet Count (auto) 362 10^3/uL (140-450); Red Blood Cells 4.31 10^6/uL (4.5-5.90); Red Cell Distribution Width 14.7 % (11.8-14.3); White Blood Cell 7.9 10^3/uL (4.4-10.8)
[2024-09-03 06:07] LABS: Chloride 103 mmol/L (98-107); Potassium 4.1 mmol/L (3.5-5.1)
[2024-09-03 06:08] LABS: Anion Gap 10 (5-15); Carbon Dioxide 20 mmol/L (20-31)
[2024-09-03 06:13] LABS: BUN/Creatinine Ratio 27.8 (10.0-20.0); Blood Urea Nitrogen 27 mg/dL (9-23); Calcium 8.7 mg/dL (8.7-10.4); Glucose 146 mg/dL (74-106); Sodium 133 mmol/L (136-145)
[2024-09-03 08:00] VITALS: RESP 18; O2SAT 96
[2024-09-03 08:31] VITALS: BP 107/44; PULSE 79; RESP 16; TEMP 99.6; O2SAT 98
[2024-09-03 12:30] VITALS: BP 113/57; PULSE 79; RESP 16; TEMP 98.7; O2SAT 98
--- NOTE | 2024-09-03 13:32 | DVHPN2 ---
Eyes: No Pain, No Vision change, No Conjunctivae inflammation, No Eyelid inflammation, No Other, No Redness ENT: No Ear pain, No Ear discharge, No Nose pain, No Nose discharge, No Nose congestion, No Mouth pain, No Mouth swelling, No Throat pain, No Throat swelling, No Other Cardiovascular: No Chest Pain, No Palpitations, No Orthopnea, No Paroxysmal Noc. Dyspnea, No Edema, No Lt Headedness, No Other Respiratory: No Cough, No Dry, No Shortness of breath, No SOB with excertion, No Wheezing, No Hemoptysis, No Pleuritic Pain, No Sputum, No Other Gastrointestinal: No Nausea, No Vomiting, No Abdominal Pain, No Diarrhea, No Constipation, No Melena, No Hematochezia, No Other Genitourinary: No Dysuria, No Frequency, No Incontinence, No Hematuria, No Retention, No Other Musculoskeletal: No other, No neck pain, No shoulder pain, No arm pain, No back pain, No hand pain, No leg pain, No foot pain Skin: No Rash, No Lesions, No Jaundice, No Bruising, No Other Objective Vitals Vital Signs Date Time Temp Pulse Resp B/P (MAP) Pulse Ox O2 Delivery O2 Flow Rate FiO2 09/03/24 12:30 98.7 79 16 113/57 (75) 98 98.7 09/03/24 08:00 Room Air* 0 21 Intake/Output Intake and Output 09/03/24 07:00 Intake Total 1930 ml Output Total 520 ml Balance 1410 ml Intake Oral 1260 ml IV Total 670 ml Output Urine Total 520 ml # Voids 6 Medications Current Medications Medications Dose Ordered Sig/Nida Route Start Time Stop Time Status Last Admin Dose Admin Sodium Chloride 1,000 ml @ 60 mls/hr [id number] IV 09/01/24 14:45 09/03/24 00:18 60 MLS/HR Al Hydrox/Mg Hydrox/Simethicone 30 ml Q6HP PRN PO 09/01/24 14:45 Docusate Sodium 100 mg BIDPRN PRN PO 09/01/24 14:45 Acetaminophen 650 mg Q6HP PRN PO 09/01/24 14:45 09/02/24 16:09 650 MG Temazepam 15 mg QHSP PRN PO 09/01/24 14:45 09/01/24 22:17 15 MG Acetaminophen/ Hydrocodone Bitart 1 tab Q4HP PRN PO 09/01/24 14:45 Hydromorphone HCl 0.5 mg Q4HP PRN IV 09/01/24 14:45 Ondansetron HCl 4 mg Q4HP PRN IV 09/01/24 14:45 Enoxaparin Sodium 40 mg DAILY SC 09/02/24 10:00 09/03/24 09:41 40 MG Vancomycin HCl 0 ml @ 0 mls/hr UD IV 09/01/24 14:45 Cefepime HCl 50 ml @ 12.5 mls/hr Q8H IV 09/01/24 22:00 09/03/24 13:30 12.5 MLS/HR Diagnostic Test (Pha) 1 strip ACHS 09/01/24 17:00 09/03/24 11:06 1 STRIP Insulin Human Regular HS SC 09/01/24 22:00 09/02/24 22:12 2 UNITS Insulin Human Regular AC SC 09/01/24 17:00 09/03/24 11:07 3 UNITS Dextrose 50 ml UD PRN IV 09/01/24 14:45 Gabapentin 300 mg HS PO 09/01/24 22:00 09/02/24 21:50 300 MG Tamsulosin HCl 0.4 mg DAILY PO 09/02/24 10:00 09/03/24 09:40 0.4 MG Atorvastatin Calcium 40 mg HS PO 09/01/24 22:00 09/02/24 21:50 40 MG Vancomycin HCl 250 ml @ 200 mls/hr Q12H IV 09/02/24 06:00 09/02/24 18:06 200 MLS/HR Lisinopril 40 mg DAILY PO 09/02/24 10:00 09/02/24 09:35 40 MG Amlodipine Besylate 10 mg DAILY PO 09/01/24 20:00 09/02/24 09:35 10 MG Insulin Glargine 10 units QAM SC 09/02/24 20:00 09/03/24 06:37 10 UNITS Laboratory Results Laboratory Tests 09/03/24 05:24 Chemistry Test 09/03/24 05:24 Calcium Level 8.7 mg/dL (8.7-10.4) Urinalysis Test 09/01/24 16:58 Urine Color Light-yellow (Yellow) Urine Clarity Clear (Clear) Urine pH 5.5 (5.0-9.0) Urine Specific [place] 1.022 (1.001-1.035) Urine Protein Trace (Negative) H Urine Ketones 1+ (Negative) H Urine Blood Negative /uL (Negative) Urine Nitrite Negative (Negative) Urine Bilirubin Negative (Negative) Urine Urobilinogen Normal mg/dL (Negative) Urine Leukocyte Esterase Negative /uL (Negative) Urine RBC <1 /hpf (0 - 3) Urine Microscopic WBC < 1 /HPF (0-3) Urine Squamous Epithelial Cells Few /hpf (<5) Urine Bacteria None seen /hpf (None Seen) Urine Glucose 4+ mg/dL (Normal) H Microbiology Microbiology Date/Time Source Procedure Growth Status 09/01/24 17:45 Toe Left (Third) Gram Stain - Final Resulted 09/01/24 17:45 Toe Left (Third) Anaerobic Culture - Preliminary Resulted 09/01/24 17:45 Toe Left (Third) Aerobic Culture - Preliminary Resulted PATRICK ORDOÑEZ MD Sep 03, 2024 13:32
[2024-09-03] MEDS ORDERED: BACDST PO (14:50)
--- NOTE | 2024-09-03 14:55 | DVHDS2 ---
Discharge Summary Date of Admission Sep 01, 2024 at 14:02 Date of Discharge: Sep 03, 2024 Admitting Diagnosis Left foot gangrenous toe (3rd digit) Possible osteomyelitis of the tip of 3rd toe of the left foot S/P left 3rd toe tip amputation and I&D day 1 Primary hypertension Type II Diabetes Mellitus Hx of BPH Labs/Diagnostic Data: Laboratory Results Test 09/03/24 11:05 09/03/24 05:24 09/01/24 21:13 09/01/24 16:58 POC Glucose 186 mg/dl (70-106) White Blood Count 7.9 10^3/uL (4.4-10.8) Red Blood Count 4.31 10^6/uL (4.5-5.90) Hemoglobin 12.5 g/dL (13.5-17.5) Hematocrit 36.5 % (41.0-53.0) Mean Corpuscular Volume 84.7 fL (80.0-100.0) Mean Corpuscular Hemoglobin 28.9 pg (28.0-32.0) Mean Corpuscular Hemoglobin Concent 34.1 g/dL (32.0-36.0) Red Cell Distribution Width 14.7 % (11.8-14.3) Platelet Count 362 10^3/uL (140-450) Mean Platelet Volume 6.8 fL (6.9-10.8) Neutrophils (%) (Auto) 91.8 % (37.0-80.0) Lymphocytes (%) (Auto) 3.5 % (10.0-50.0) Monocytes (%) (Auto) 3.8 % (0.0-12.0) Eosinophils (%) (Auto) 0.7 % (0.0-7.0) Basophils (%) (Auto) 0.2 % (0.0-2.0) Neutrophils # (Auto) 7.2 10 ^3/uL (1.6-8.6) Lymphocytes # (Auto) 0.3 10 ^3/uL (0.4-5.4) Monocytes # (Auto) 0.3 10 ^3/uL (0-1.3) Eosinophils # (Auto) 0.1 10 ^3/uL (0-0.8) Basophils # (Auto) 0 10 ^3/uL (0-0.2) Nucleated Red Blood Cells 0.0 % Sodium Level 133 mmol/L (136-145) Potassium Level 4.1 mmol/L (3.5-5.1) Chloride Level 103 mmol/L (98-107) Carbon Dioxide Level 20 mmol/L (20-31) Anion Gap 10 (5-15) Blood Urea Nitrogen 27 mg/dL (9-23) Creatinine 0.97 mg/dL (0.700-1.30) Glomerular Filtration Rate Calc 81 mL/min (>90) BUN/Creatinine Ratio 27.8 (10.0-20.0) Serum Glucose 146 mg/dL (74-106) Calcium Level 8.7 mg/dL (8.7-10.4) Vancomycin Level Trough 20.6 ug/mL (5-10) Hemoglobin A1c 8.0 % A1C (<5.7) Urine Color Light-yellow (Yellow) Urine Clarity Clear (Clear) Urine pH 5.5 (5.0-9.0) Urine Specific [place] 1.022 (1.001-1.035) Urine Protein Trace (Negative) Urine Ketones 1+ (Negative) Urine Blood Negative /uL (Negative) Urine Nitrite Negative (Negative) Urine Bilirubin Negative (Negative) Urine Urobilinogen Normal mg/dL (Negative) Urine Leukocyte Esterase Negative /uL (Negative) Urine RBC <1 /hpf (0 - 3) Urine Microscopic WBC < 1 /HPF (0-3) Urine Squamous Epithelial Cells Few /hpf (<5) Urine Bacteria None seen /hpf (None Seen) Urine Glucose 4+ mg/dL (Normal) Test 09/01/24 16:00 Prothrombin Time 10.5 sec (9.3-11.8) Prothrombin Time INR 0.99 (0.9-1.15) Activated Partial Thromboplast Time 31.3 SEC (24.5-34.5) Total Bilirubin 0.5 mg/dL (0.2-1.0) Aspartate Amino Transferase (AST) 13 U/L (13-40) Alanine Aminotransferase (ALT) 17 U/L (7-40) Alkaline Phosphatase 107 U/L (46-116) Total Protein 7.7 g/dL (5.7-8.2) Albumin 4.4 g/dL (3.2-4.8) Triglycerides Level 65 mg/dL (< 150) Cholesterol Level 162 mg/dL (< 200) LDL Cholesterol 105 mg/dL (< 100) HDL Cholesterol 55 mg/dL (40-59) Vitamin B12 Level 240 pg/mL (211-911) Vitamin D 25-Hydroxy 42.1 ng/mL (30.0-100) Other Laboratory Tests 09/03/24 05:24 Brief Hx & Hospital Course: This is a 74 years old male with past medical history hypertension, diabetes type 2, right big toe amputation, left toe and 2nd digit amputation come to emergency department because of blackish dark discolored of the 3rd digit of the left foot. Patient was admitted. Insurance Consultant, Dr. Braswell, took the patient to the OR for partial amputation of 3rd digit. Patient was started on IV vancomycin and cefepime. Per Dr. Thompson patient can be discharged home with oral antibiotic. So I am discharge the patient home with Bactrim DS twice per day for 15 days. Follow up with Dr. Braswell per schedule. Follow up with primary care physician 1-2 weeks. Activity as tolerated. Diet per home diet. Recommend low-salt low-cholesterol diet. Physical exam: HEENT: Normocephalic atraumatic pupils equal react to light and accommodation. Extraocular muscles intact, conjunctiva pink, oropharynx moist, no thrush, no exudate. Lymphatic: No lymphadenopathy Cardiovascular exam: S1, S2 was heard. No murmurs, rubs, gallops Lung: Clear on auscultation bilaterally, no wheeze, rale, rhonchi. GI: Abdominal soft, nondistended, nontenderness, positive bowel sounds. Extremity: No crepitus, cyanosis, edema. Pedal pulses present bilateral. Full range of motion. Skin: Normal turgor, no rash. Psych: Alert, oriented x3. Neurology: No focal deficits, cranial nerve II to XII grossly intact. This medical document was created using an electronic medical record system with [employer] direct computerized dictation system. Although this document has been carefully reviewed, there may still be some phonetic and typographical errors. These areas are purely typographical due to imperfections of the software programs, and do not reflect any compromise in the patient's medical care. Condition at Discharge: Stable Final Diagnosis/Problems List Left foot gangrenous toe (3rd digit) Possible osteomyelitis of the tip of 3rd toe of the left foot S/P left 3rd toe tip amputation and I&D day 1 Primary hypertension Type II Diabetes Mellitus Hx of BPH Discharge Disposition: Home Discharge Instruct/Medications Diet: Consistent carbohydrate Activity: No Restrictions, As Tolerated Follow Up/Referral: pcp 1-2 weeks Medications: resume home meds Bactrim DS one tab bid x 15 days Discharge Statement: "Patient was advised to return to the ER or call 911 if any headaches, dizziness, shortness of breath, chest pain, abdominal pain, bleeding, fevers, or worsening of medical condition. Patient was counseled about treatment plan, medications, possible side effects, patientverbalized understanding. All questions were answered to the best of my ability. This discharge took greater then 30 minutes in planning, reviewing documentation, counseling the patient, and discussing with other team members." ASSESSMENT ASSESSMENT Assessment osteomylitis of toe Date of Service: Sep 03, 2024 Billing Provider: PATRICK ORDOÑEZ MD Common Visit Codes: [id number] DISCH DAY >30min PATRICK ORDOÑEZ MD Sep 03, 2024 14:54
[2024-09-03 15:21] VITALS: BP 107/44; TEMP 37.1
[2024-09-03] MEDS ORDERED: VANCOMYCIN 1GM/200ML PM 200 ML IV SCH (18:00)
== END 2024-09-03 17:30 | disposition home or self-care (01) | DRG 256 ==
LOC: WEST WING 14:02
PROVIDERS: ADMIT Internal Medicine; ATTEND Internal Medicine
PROC: 0QBR0ZX Excision of Left Toe Phalanx, Open Approach, Diagnostic (ICD-10-PCS; 2024-09-01)
PROC: 0Q9R0ZZ Drainage of Left Toe Phalanx, Open Approach (ICD-10-PCS; 2024-09-01)
PROC: 0Y6Q0Z0 Detachment at Left 1st Toe, Complete, Open Approach (ICD-10-PCS; principal; 2024-09-01 15:08)
DX: E11.52 Type 2 diabetes mellitus with diabetic peripheral angiopathy with gangrene (principal); L02.612 Cutaneous abscess of left foot; M86.8X7 Other osteomyelitis, ankle and foot; I10 Essential (primary) hypertension; E11.69 Type 2 diabetes mellitus with other specified complication; N40.0 Benign prostatic hyperplasia without lower urinary tract symptoms; L03.032 Cellulitis of left toe; Z79.2 Long term (current) use of antibiotics; Z79.84 Long term (current) use of oral hypoglycemic drugs; Z79.899 Other long term (current) drug therapy
CPT/HCPCS: 36415; 80048; 80053; 80061; 80202; 81001; 82306; 82565; 82607; 82962; 83036; 85025; 85610; 85730; 87070; 87075; 87077; 87081; 87186; 87205; G0378; J0692; J1815